=== PATIENT | male | born 1955 | race Caucasian/White ===

== ENCOUNTER 2016-11-09 17:24 | Inpatient (IN) | payer OTHER ==
--- NOTE | 2016-11-09 18:54 | PROVIDER DOCUMENTATION ---
HPI-Chest Pain - General Chief Complaint: Nausea/Vomiting Stated Complaint: CHEST PAIN,NAUSEA Time Seen by Provider: 11/09/16 18:40 Source: patient, family Allergies/Adverse Reactions: Patient Allergies Allergy/AdvReac Type Severity Reaction Status Date / Time Iodinated Contrast Media - Allergy Severe ANAPHYLAXIS Verified 11/09/16 18:07 Oral and iodine Allergy Severe ANAPHYLAXIS Verified 11/09/16 18:07 Home Medications: Home Medication List Medication Instructions Recorded Confirmed Last Taken Type Allopurinol 300 mg PO DAILY 11/07/14 11/09/16 05/28/16 11:00 History Buprenorphine HCl/Naloxone HCl 1 film SL TID 11/07/14 11/09/16 05/28/16 21:00 History [Suboxone 8 mg/2 mg Sl Film] Gabapentin [Neurontin] 800 mg PO TID 11/07/14 11/09/16 11/29/14 10:30 History 800 Tamsulosin HCl 1 cap PO QHS 11/07/14 11/09/16 05/28/16 09:00 History Trazodone HCl 150 mg PO QHS 11/07/14 11/09/16 11/28/14 20:00 History 100 Acetaminophen [Tylenol] 325 mg PO DAILY 05/29/16 11/09/16 Unknown History Bacitracin/Polymixin Oint 1 each TOP PRN PRN 05/29/16 11/09/16 Unknown History [Polysporin Ointment] Bacitracin/Polymyxin Oph Oint 1 each OPH PRN PRN 05/29/16 11/09/16 Unknown History [Polysporin Oph Ointment] Bisacodyl [Bisac-Evac] 1 each NC PRN PRN 05/29/16 11/09/16 Unknown History Buspirone [Buspar] 7.5 mg PO BID 05/29/16 11/09/16 05/28/16 08:00 History Cholecalciferol (Vit D3) [Vitamin 2,000 unit PO DAILY 05/29/16 11/09/16 Unknown History D] Clotrimazole 1% Cream [Lotrimin 1% 1 each TOP BID 05/29/16 11/09/16 Unknown History Cream] Cyanocobalamin (Vitamin B-12) 2,500 mcg SL DAILY 05/29/16 11/09/16 05/28/16 09: 00 History [Vitamin B12] Diclofenac 1% Gel [Voltaren 1% Gel] 1 each TOP PRN PRN 05/29/16 11/09/16 Unknown History Docusate Sodium [Sof-Lax] 100 mg PO DAILY 05/29/16 11/09/16 Unknown History Furosemide [Lasix] 40 mg PO DAILY 05/29/16 11/09/16 05/28/16 12:00 History Glipizide [Glipizide Xl] 10 mg PO DAILY 05/29/16 11/09/16 05/28/16 09:00 History Loratadine 10 mg PO DAILY 05/29/16 11/09/16 05/28/16 09:00 History Ondansetron HCl [Zofran] 4 mg PO DAILY 05/29/16 11/09/16 Unknown History Ondansetron [Zofran Odt] 8 mg PO Q8H PRN #10 tab.rapdis 05/29/16 11/09/16 Unknown Rx Polyethylene Glycol 3350 [Miralax] 17 gm PO DAILY 05/29/16 11/09/16 05/28/16 09: 00 History Propranolol L.a. [Inderal LA] 120 mg PO DAILY 05/29/16 11/09/16 05/28/16 09:00 History Saccharomyces Boulardii [Florastor] 250 mg PO DAILY 05/29/16 11/09/16 05/28/16 09:00 History Sennosides/Docusate Sodium [Senna 4 each PO BID 05/29/16 11/09/16 05/28/16 08: 00 History S Tablet] Sertraline HCl 100 mg PO DAILY 05/29/16 11/09/16 05/28/16 09:00 History Urea [Dia Lo 40] 1 each TOP BID 05/29/16 11/09/16 05/28/16 08:00 History Witch Marianna [Preparation H] 1 each NC PRN PRN 05/29/16 11/09/16 Unknown History Sitagliptin Phosphate [Januvia] 100 mg PO DAILY 11/09/16 11/09/16 Unknown History - History of Present Illness-CP Nature of Presenting Problem: Pt is a 61 yom who presents to ER via EMS from assisted living with CC of chest pain, possibly due to intermittent N/V x2 weeks. 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 Pt reports that today he has had intermittent N/V that has caused epigastric pain. Pt reports that his chest does not hurt anymore, but is still severely nauseas. Location: reports: epigastric Chest Pain Radiation: reports: no radiation Quality of Pain: reports: aching, cramping Severity in ED: severe Onset/Duration: other ("past several weeks") Timing: intermittent Associated Symptoms: reports: abdominal pain, fatigue, nausea, vomiting, weakness. denies: back pain, diaphoresis, dizziness, edema, fever/chills, headache, heartburn, rash, shortness of breath, swelling/lump in chest, syncope Review of Systems - Adult - REVIEW OF SYSTEMS - ADULT Constitutional: reports: fatique. denies: chills, fever, night sweats, weight gain, weight loss Eyes: reports: no symptoms reported Ears, Nose, Mouth & Throat: reports: no symptoms reported Cardiovascular: reports: chest pain. denies: edema, heart murmur, irregular heart rate, orthopnea, palpitations, poor circulation, PND, syncope Respiratory: denies: chronic cough, cough, dyspnea on exertion, excessive sputum production, hemoptysis, pleurisy, shortness of breath, wheezing Gastrointestinal: reports: abdominal pain, nausea, poor appetite, vomiting. denies: hematemesis, constipation, diarrhea, difficulty swallowing, frequent heartburn, rectal bleeding Genitourinary: reports: no symptoms reported Musculoskeletal: reports: no symptoms reported Integumentary: reports: skin sores/ulcer (Shingles). denies: hives, hair loss, itching, mole changes, nail changes, rash, skin thickening Neurological: reports: no symptoms reported Psychiatric: reports: no symptoms reported Endocrine: reports: no symptoms reported Hematologic/Lymphatic: reports: no symptoms reported Allergic/Immunologic: reports: no symptoms reported All Other Systems: Reviewed and Negative Past History - Adult - PAST MEDICAL HISTORY-ADULT Review of Records: reports: Nursing Assessment Review, Medications Reviewed Cardiovascular: reports: HTN, hyperlipidemia Musculoskeletal: reports: chronic pain Endocrine/Immune: reports: Diabetes - PRIOR SURGERIES/PROCEDURES Surgical/Procedure History: reports: cholecystectomy - IMMUNIZATION STATUS Childhood Immunizations: See Nurse Assessment Flu Vaccine: See Nurse Assessment Physical Exam-General - PHYSICAL EXAM-ADULT Initial Vital Signs Reviewed: Yes - CONSTITUTIONAL General Appearance: appears well, alert, severe distress, obese, slow to respond . negative: no apparent distress, mild distress, moderate distress, cachetic, thin, anxious, lethargic, obtunded, combative - NECK Neck: non-tender, full range of motion, supple. negative: C-spine tenderness, limited range of motion, lymphadenopathy - RESPIRATORY Respiratory: chest non-tender, lungs clear, normal breath sounds. negative: respiratory distress, decreased breath sounds, accessory muscle use, wheezing - CARDIOVASCULAR Cardiovascular: normal peripheral pulses, regular rate, rhythm. negative: bradycardia, tachycardia - GASTROINTESTINAL (ABDOMEN) Abdominal Exam: normal bowel sounds, soft, tenderness (bilateral upper quadrant) . negative: non tender, abnormal bowel sounds, distended, rebound, mass - LYMPHATIC Lymphatic: no adenopathy. negative: axilla node tender, cervical node tenderness - NEUROLOGIC Neurologic: grossly normal, focal weakness (total blindness from prior incident) , sensory deficit (bilateral lower extremities, not new onset). negative: no motor/sensory deficits, facial droop, motor weakness - PSYCHIATRIC Psych/Mental Status: normal thought content, normal thought process, oriented x 3, anxious, disheveled, tearful. negative: normal mood/affect Progress - PLAN OF CARE/RESULTS Progress/Plan/Lab Results: POC: IV fluids/labs/X-ray 1855: Dr. Deandre garcia Hospitalist Vital Signs - 24 hr 11/09/16 17:33 Temperature 98.5 F Pulse Rate 78 Respiratory 18 Rate Blood Pressure 178/75 O2 Sat by Pulse 100 Oximetry Orders Category Date Time Status Cardiac Monitoring DIRECTED Care 11/09/16 18:57 Active Saline Loc NOW Care 11/09/16 18:57 Active CHEST-PORTABLE [RAD] Stat Exams 11/09/16 18:[address] THORAX W/O CONTRAST [CT] Stat Exams 11/09/16 21:27 Ordered CBC WITH ELECTRONIC DIFF [HEME] Stat Lab 11/09/16 18:45 Completed CK PROFILE [SP CHEM] Stat Lab 11/09/16 18:45 Completed COMPREHENSIVE METABOLIC PANEL [CHEM] Stat Lab 11/09/16 18:45 Completed D-DIMER [CHEM] Stat Lab 11/09/16 18:45 Completed MAGNESIUM [CHEM] Stat Lab 11/09/16 18:45 Completed PRO B-NATRIURETIC PEPTIDE Stat Lab 11/09/16 18:45 Completed PROTIME WITH INR [COAG] Stat Lab 11/09/16 18:45 Completed PTT [COAG] Stat Lab 11/09/16 18:45 Completed TROPONIN T Stat Lab 11/09/16 18:45 Completed UA [URINALYSIS] [URINALYSIS] Stat Lab 11/09/16 18:03 Completed 0.9% Sodium Chloride Inj [Ns] 1,000 ml Med 11/09/16 20:00 Active IV 500 mls/hr Aspirin Med 11/09/16 18:57 Discontinued 325 mg PO STAT STA Insulin Human Regular [Humulin R] Med 11/09/16 21:24 Discontinued 5 unit SUBQ NOW ONE Magnesium Sulfate 2 gm/S.w.i. [Magnesium Sulfate 2 gm/S Med 11/09/16 21:09 Active .w.i] 50 ml IV NOW Nitroglycerin Sl [Nitroglycerin] Med 11/09/16 18:57 Active 0.4 mg SL Q5M PRN PRN Ondansetron [Zofran] Med 11/09/16 20:17 Discontinued 4 mg .ROUTE .STK-MED ONE Ondansetron [Zofran] Med 11/09/16 19:48 Discontinued 4 mg IV NOW ONE Potassium Chloride 20 Meq/Swi 100 ml Med 11/09/16 22:00 Active IV Q2H EKG [EKG] Stat Ther 11/09/16 17:32 Ordered EKG [EKG] Stat Ther 11/09/16 18:57 Ordered Laboratory Tests 11/09/16 11/09/16 11/09/16 18:03 18:45 18:45 WBC 11.24 H RBC 4.58 L Hgb 13.9 L Hct 43.0 MCV 93.9 MCH 30.3 MCHC 32.3 L RDW Std Deviation 13.6 Plt Count 290 MPV 9.6 Immature Gran % (Auto) 0.2 Neut % (Auto) 86.7 H Lymph % (Auto) 7.6 L [place] % (Auto) 4.5 Eos % (Auto) 0.8 Baso % (Auto) 0.2 Immature Gran # (Auto) 0.02 Neut # (Auto) 9.75 H Lymph # (Auto) 0.85 L [place] # (Auto) 0.51 Eos # (Auto) 0.09 Baso # (Auto) 0.02 Segmented Neutrophils 84 H Band Neutrophils 2 H Lymphocytes 2 L Monocytes 6 Atypical Lymphocytes 6.0 Anisocytosis OCCASIONAL Macrocytosis OCCASIONAL Stomatocytes OCCASIONAL PT INR PTT (Actin FS) D-Dimer Sodium 133 L Potassium 3.7 Chloride 90 L Carbon Dioxide 32 Anion Gap 11 BUN 7 L Creatinine 1.0 Estimated GFR/1.73 m2 > 60 BUN/Creatinine Ratio 7 Glucose 252 H Calculated Osmolality 273 Calcium 9.1 Magnesium 1.4 L Total Bilirubin 1.29 H AST 332 H ALT 103 H Alkaline Phosphatase 135 H Creatine Kinase 170 Troponin T [id number] Pept Total Protein 8.1 Albumin 3.7 Globulin 4.4 Albumin/Globulin Ratio 0.8 Urine Source VOIDED Urine Color YELLOW Urine Turbidity CLEAR Urine pH 6.5 Ur Specific [place] 1.013 Urine Protein TRACE A Ur Glucose (Stick) 500 A Ur Ketones (Stick) NEGATIVE Urine Blood NEGATIVE Urine Nitrite NEGATIVE Urine Bilirubin NEGATIVE Urobilinogen Dipstick NORMAL Urine Leukocytes NEGATIVE Urine WBC (Auto) <10 Urine RBC (Auto) <10 U Epithel Cells (Auto) <10 Urine Bacteria (Auto) NEGATIVE 11/09/16 11/09/16 11/09/16 18:45 18:45 18:45 WBC RBC Hgb Hct MCV MCH MCHC RDW Std Deviation Plt Count MPV Immature Gran % (Auto) Neut % (Auto) Lymph % (Auto) [place] % (Auto) Eos % (Auto) Baso % (Auto) Immature Gran # (Auto) Neut # (Auto) Lymph # (Auto) [place] # (Auto) Eos # (Auto) Baso # (Auto) Segmented Neutrophils Band Neutrophils Lymphocytes Monocytes Atypical Lymphocytes Anisocytosis Macrocytosis Stomatocytes PT 10.4 INR 0.98 PTT (Actin FS) 26.7 D-Dimer 0.64 H Sodium Potassium Chloride Carbon Dioxide Anion Gap BUN Creatinine Estimated GFR/1.73 m2 BUN/Creatinine Ratio Glucose Calculated Osmolality Calcium Magnesium Total Bilirubin AST ALT Alkaline Phosphatase Creatine Kinase Troponin T [id number] Pept 349 H Total Protein Albumin Globulin Albumin/Globulin Ratio Urine Source Urine Color Urine Turbidity Urine pH Ur Specific [place] Urine Protein Ur Glucose (Stick) Ur Ketones (Stick) Urine Blood Urine Nitrite Urine Bilirubin Urobilinogen Dipstick Urine Leukocytes Urine WBC (Auto) Urine RBC (Auto) U Epithel Cells (Auto) Urine Bacteria (Auto) 11/09/16 18:45 WBC RBC Hgb Hct MCV MCH MCHC RDW Std Deviation Plt Count MPV Immature Gran % (Auto) Neut % (Auto) Lymph % (Auto) [place] % (Auto) Eos % (Auto) Baso % (Auto) Immature Gran # (Auto) Neut # (Auto) Lymph # (Auto) [place] # (Auto) Eos # (Auto) Baso # (Auto) Segmented Neutrophils Band Neutrophils Lymphocytes Monocytes Atypical Lymphocytes Anisocytosis Macrocytosis Stomatocytes PT INR PTT (Actin FS) D-Dimer Sodium Potassium Chloride Carbon Dioxide Anion Gap BUN Creatinine Estimated GFR/1.73 m2 BUN/Creatinine Ratio Glucose Calculated Osmolality Calcium Magnesium Total Bilirubin AST ALT Alkaline Phosphatase Creatine Kinase Troponin T < 0.010 Esr-[id number]-Vbqfcffeady Pept Total Protein Albumin Globulin Albumin/Globulin Ratio Urine Source Urine Color Urine Turbidity Urine pH Ur Specific [place] Urine Protein Ur Glucose (Stick) Ur Ketones (Stick) Urine Blood Urine Nitrite Urine Bilirubin Urobilinogen Dipstick Urine Leukocytes Urine WBC (Auto) Urine RBC (Auto) U Epithel Cells (Auto) Urine Bacteria (Auto) - REASSESSMENT Reassessment #1 Time Reassessed: 20:47 Status: improving (Pt reports that he is feeling better and has stopped vomiting ; Pt is able to drink water) Reassessment #2 Time Reassessed: 21:45 Status: improving (Pt reports that he is feeling better, not having any more chest pain, and is not feeling nauseas anymore. Dr. Carrera discussed results of pt's lab with family and decision to have pt admitted. Family verbaly acknowledged and agreed.) - EKG 1 Time of EKG reading by physician:: 17:29 EKG Read and Signed by:: Salazar Carrera EKG Interpretation (*Must complete 3 of following elements*): Normal Rate: 78 Rhythm: Normal sinus rhythm 2 Time of EKG reading by physician:: 02:01 EKG Read and Signed by:: Salazar Carrera EKG Interpretation (*Must complete 3 of following elements*): Normal Rate: 71 Rhythm: NSR - XRAY 1 XRAY: Bilateral XRAY Study: Chest Impression: See EMR Report (Cardiomegaly; Pulmonary edema; widened mediastinum;) Comparison with other Films: changes noted (Changed from 11/29/2014) XRAY Interpretation: See report - CT/MRI 1 CT Study: Thorax Impression: See EMR Report (No effusions; Fat in the mediastinum; No pneumonia; Prior granulomatous infection) CT Results: See report Departure - Departure Time of Disposition Order: 19:09 Disposition: ADMITTED INPATIENT Referrals: Raina Dill [Primary Care Provider] - Attestation - Scribe Verification/Attestation Scribe:: Hamzah Hernandez Acting as Scribe for:: Salazar Carrera Scribe documention review:: This chart was documented by a scribe and accurately reflects the service the provider performed and the decisions made by the provider.
[2016-11-09] MEDS ORDERED: ASPIRIN PO STA (18:57)
[2016-11-09] MEDS ORDERED: NITROGLYCERIN SL PRN (18:57)
[2016-11-09 19:36] LABS: INR 0.98; PROTIME 10.4 Seconds (9.2-11.7); PTT 26.7 Seconds (22.0-36.0)
[2016-11-09 19:43] LABS: AGAP 11; ALBUMIN 3.7 g/dL (3.5-5.0); ALKALINE PHOSPHATASE 135 U/L (32-122); BUN 7 mg/dL (8-22); CALCIUM 9.1 mg/dL (8.8-10.2); CHLORIDE 90 mmol/L (98-107); CK PROFILE 170 U/L (24-204); COSMO 273; GOT 332 U/L (10-34); GPT 103 U/L (10-44); MAGNESIUM 1.4 mg/dL (1.5-2.7); POTASSIUM 3.7 mmol/L (3.5-5.1); SODIUM 133 mmol/L (136-145); TCO2 32 mmol/L (25-35); TOTAL BILIRUBIN 1.29 mg/dL (0.20-1.00); TOTAL PROTEIN 8.1 g/dL (6.3-8.3)
[2016-11-09] MEDS ORDERED: ZOFRAN IV ONE (19:48)
[2016-11-09 20:01] LABS: BASO% 0.2 % (0.0-0.8); EOS# 0.09 X1000 (0.0-0.7); EOS% 0.8 % (0.0-10.0); HEMOGLOBIN 13.9 g/dL (14.0-18.0); IMM GRAN# 0.02 X1000 (0.0-0.04); IMM GRAN% 0.2 % (0.0-0.5); LYMPH# 0.85 X1000 (1.2-3.4); LYMPH% 7.6 % (20.5-51.1); MANUAL DIFF NEEDED? YES; MCH 30.3 PG (27-31); MCHC 32.3 g/dL (33-37); MCV 93.9 FL (81-99); MONO# 0.51 X1000 (0.11-0.59); MONO% 4.5 % (1.7-9.3); MPV 9.6 FL (7.4-10.4); NEUT% 86.7 % (42.2-75.2); PLT 290 X1000 (130-400); RBC 4.58 XMIL (4.7-6.1)
[2016-11-09] MEDS ORDERED: ZOFRAN ONE (20:17)
[2016-11-09] MEDS: NS 1,000 ML IV SCH ×2 (20:30→23:05)
[2016-11-09] MEDS ORDERED: MAGNESIUM SULFATE 2 GM/S.W.I. 50 ML IV ONE (21:09)
[2016-11-09 21:16] LABS: BANDS 2 % (0-1); LYMPHS 2 % (21-51); MONO 6 % (1-9)
[2016-11-09 21:18] LABS: STOMATOCYTES OCCASIONAL
[2016-11-09] MEDS ORDERED: HUMULIN R SUBQ ONE (21:24)
[2016-11-09 21:29] LABS: URINE MICRO REVIEW NEEDED? NO; URINE SOURCE VOIDED
[2016-11-09 21:34] LABS: BILIRUBIN URINE NEGATIVE (NEGATIVE); BLOOD URINE NEGATIVE (NEGATIVE); COLOR YELLOW; GLUCOSE URINE 500 mg/dL (NEGATIVE); LEUKOCYTES URINE NEGATIVE (NEGATIVE); NITRITE URINE NEGATIVE (NEGATIVE); PH URINE 6.5; PROTEIN URINE TRACE mg/dL (NEGATIVE); SP GRAVITY URINE 1.013; TURBIDITY URINE CLEAR (CLEAR); UR EPITHELIAL CELLS <10 /HPF (<10); URINE BACTERIA NEGATIVE /HPF; URINE RBC <10 /HPF (<10); URINE WBC <10 /HPF (<10); UROBILINOGEN URINE NORMAL (NORMAL)
[2016-11-09] MEDS ORDERED: ZOSYN 3.375 GM/NS 50 ML IV ONE (21:49)
[2016-11-09] MEDS ORDERED: TYLENOL PO ONE (23:12)
[2016-11-09] MEDS ORDERED: TYLENOL ONE (23:15)
--- NOTE | 2016-11-09 23:23 | Diag Imaging Result Document ---
PROCEDURE NAME: CT THORAX W/O CONTRAST - 11/09/2016 FINDINGS: No pleural effusions. No cardiomegaly. No thoracic aortic aneurysm. There are calcified mediastinal and right hilar lymph nodes and there are several scattered calcified granuloma. No consolidation. No bronchiectasis. No lung mass. No pneumothoraces. Limited images through the upper abdomen reveal prominent fatty infiltration of the liver and a cholecystectomy. IMPRESSION: 1. There is evidence of a prior granulomatous infection, but no acute pneumonia. 2. Fat in the mediastinum. 3. Cholecystectomy and fatty infiltration of the liver. A preliminary report was given at 10:28 p.m.
[2016-11-09] MEDS: POTASSIUM CHLORIDE 20 MEQ/SWI 100 ML IV SCH (23:34)
[2016-11-09 23:40] LABS: UR AMPHETAMINES QUAL NONE DETECTED (NONE DETECT); UR BARBITUATES QUAL NONE DETECTED (NONE DETECT); UR BENZODIAZEPIN QUAL NONE DETECTED (NONE DETECT); UR CANNABINOIDS QUAL NONE DETECTED (NONE DETECT); UR COCAINE QUAL NONE DETECTED (NONE DETECT); UR METHADONE QUAL NONE DETECTED (NONE DETECT); UR OPIATES QUAL NONE DETECTED (NONE DETECT); UR OXYCODONE QUAL NONE DETECTED (NONE DETECT); UR PCP QUAL NONE DETECTED (NONE DETECT)
[2016-11-10] MEDS ORDERED: ZOFRAN IV ONE (00:02)
[2016-11-10] MEDS ORDERED: DULCOLAX PR PRN (01:04)
[2016-11-10] MEDS ORDERED: [UNRECOGNIZED DRUG - OTHER] OPH PRN (01:04)
[2016-11-10] MEDS ORDERED: TUCKS PADS PR PRN (01:04)
[2016-11-10] MEDS ORDERED: COMPAZINE IV ONE (01:09)
[2016-11-10] MEDS: NS 1,000 ML IV SCH ×2 (01:45→03:55)
[2016-11-10] MEDS: CLINDAMYCIN 600 MG/NS 50 ML IV SCH ×2 (01:45→12:12)
[2016-11-10] MEDS: POTASSIUM CHLORIDE 20 MEQ/SWI 100 ML IV SCH (01:45)
[2016-11-10] MEDS ORDERED: TORADOL IV ONE (04:26)
[2016-11-10] MEDS ORDERED: XYLOCAINE 2% JELLY UROJECT TOP ONE (04:59)
[2016-11-10] MEDS ORDERED: ZOFRAN IV PRN (06:33)
[2016-11-10] MEDS ORDERED: SODIUM CHLORIDE 0.9% INJ PRN (06:33)
--- NOTE | 2016-11-10 06:39 | HISTORY AND PHYSICAL ---
PRIMARY CARE PROVIDER: Dr. Dill at [facility] in [place]. CHIEF COMPLAINT: Nausea, vomiting and chest pain. HISTORY OF PRESENT ILLNESS: A 61-year-old male with a past medical history of hypertension, hyperlipidemia, diabetes mellitus type 2 and chronic pain, who is completely blind, presents to the emergency room with his sister from [facility] in [place]. He has reportedly had nausea and vomiting for 6 months but tonight began having a complaint of chest pain. He also has a recent history of shingles and is treated with Suboxone for his chronic pain. In the ER, his complaint of chest pain was evaluated and found to be more epigastric in nature. During my interview, the patient and sister also made mention of recent diagnosis of gastroparesis. Again, this is per the patient and sister at the bedside. Also reportedly had an abscess on his coccyx that was I D. Patient refused during the assessment to roll to his side related to nausea even after nausea medicine so it could be evaluated. The ER provider was also unable to evaluate this. Per description from the sister, it is reddened around the area and they have apparently been treating it at [facility]. The patient was noted to have a fever in the emergency room. He was initially given Zosyn in the ER. Laboratory data was grossly normal. He did have a mildly elevated D-dimer and a CT of the chest was obtained. However, the patient lists an allergy to IV and oral contrast. The CT showed evidence of prior granulomatous infection but no acute pneumonia, fat in the mediastinum and fatty infiltration of the liver. His ALT and AST were elevated at 103 and 332 respectively with a total bilirubin of 1.29, but the CT scan showing FERRIS would account for this. At any rate, the patient will be admitted to the medical floor for further evaluation and treatment. PAST MEDICAL HISTORY: See HPI. PREVIOUS SURGICAL HISTORY: 1. EGD and colonoscopy. 2. Cholecystectomy. 3. TURP. SOCIAL HISTORY: Denies a history of alcohol, tobacco or illicit drug use or abuse. He did have a chronic history of oxycodone use related to chronic pain. He has been subsequently changed to Suboxone related to his wish to get off of oxycodone. FAMILY HISTORY: Positive for diabetes and hypertension. ALLERGIES: IV and oral contrast and iodine causing anaphylaxis. HOME MEDICATIONS: 1. Trazodone 150 mg p.o. at bedtime. 2. Flomax 0.4 mg p.o. at bedtime. 3. Suboxone 8 mg/2 mg 1 film sublingual t.i.d. 4. Neurontin 800 mg p.o. t.i.d. 5. Allopurinol 300 mg p.o. daily. 6. Dulcolax suppository 1 p.o. p.r.n. 7. Preparation-H 1 AR p.r.n. 8. Polysporin ointment ophthalmic p.r.n. 9. Sof-Lax 100 mg p.o. daily. 10. Tylenol 325 p.o. daily. 11. Zofran 4 mg p.o. daily. 12. Senokot S tablet 4 each p.o. b.i.d. 13. BuSpar 7.5 mg p.o. b.i.d. 14. Lasix 40 mg p.o. daily. 15. Vitamin D 2000 units p.o. daily. 16. Inderal LA 120 mg p.o. daily. 17. MiraLAX 17 g p.o. daily. 18. Loratadine 10 mg p.o. daily. 19. Florastor 250 mg p.o. daily. 20. Voltaren 1% gel 1 topically p.r.n. 21. Zofran ODT 8 mg q.8 p.r.n. 22. Lotrimin 1% cream topically b.i.d. 23. Urea 1 topically b.i.d. lotion. 24. Vitamin B12 2500 mg sublingual daily. 25. Glipizide 10 mg p.o. daily. 26. Januvia 100 mg p.o. daily. REVIEW OF SYSTEMS: Fourteen point review of systems conducted with the patient. He has complaint of nausea and vomiting, abdominal pain, chest pain mostly in the epigastric region. Did not radiate into his neck, back, jaw, shoulder or arms. Denied previous fever, chills, shortness of breath. Denied dysuria and diarrhea. Other pertinent positives for the admission are listed above in the HPI. PHYSICAL EXAMINATION: VITAL SIGNS: Temp 102 degrees, pulse 79, respirations 22, blood pressure 182/97, oxygen saturation 95% to 100 on 2 L nasal cannula. GENERAL: Obese 61-year-old male lying in the ER stretcher. He is totally blind. Answers all questions appropriately. No acute distress. HEENT: Head is atraumatic, normocephalic. Pupils are nonreactive related to his blindness. Oral mucosa is moist. NECK: Supple. No JVD. No thyromegaly. LUNGS: Clear to auscultation bilaterally. No rhonchi, wheezes or rales. Symmetrical rise and fall with respirations. CARDIOVASCULAR: S1, S2 appreciated. No murmurs, gallops, rubs. Regular rhythm. ABDOMEN: Soft, mildly distended, diffusely tender. Bowel sounds are hyperactive all 4 quadrants. EXTREMITIES: 2+ right lower extremity edema mid calf to foot, 1+ pitting edema left lower extremity mid calf to foot, 2+ pedal pulses. NEUROLOGICAL: Alert and oriented x4. Other than blindness which was noted above, cranial nerves were grossly intact. DIAGNOSTIC DATA: CT of the thorax without contrast: No infiltrate, fatty infiltration of the liver noted, fat noted in the mediastinum. LABORATORY DATA: WBC 11.24, hemoglobin 13.9, hematocrit 43, platelet count 29,000, 2 band neutrophils. Coagulations within normal limits. D-dimer 0.64. Sodium 133, potassium 3.7, chloride 90, carbon dioxide 32, BUN 7, creatinine 1, glucose 252, magnesium 1.4, total bilirubin 1.29, AST 332, ALT 103. CK 170, troponin less than 0.010. Urine unremarkable. Toxicology screen negative. ASSESSMENT AND PLAN: 1. Intractable nausea and vomiting, possibly related to gastroparesis. The family at bedside states that the patient has a diagnosis of gastroparesis in 2016. He had a gastric emptying study which showed normal gastric emptying times. We will consult Dr. Paul for her help in this matter. We will give Zofran and Phenergan p.r.n. as needed. 2. Nonalcoholic steatohepatitis. We will order a CT of the abdomen and pelvis without contrast as the patient is allergic to it related to nausea, vomiting and elevated liver enzymes. The CT of the thorax did show fatty infiltrations of the liver. We will also order an ammonia level. As noted above, we will consult Dr. Paul, GI specialist, for help with these matters. 3. Suspected bacterial infection secondary to recent abscess I D. The patient will not rollover related to his nausea and vomiting for me to visualize the area on his back. It was described to me per the sister as being reddened around the area. He is febrile. Blood cultures have been drawn. We will order clindamycin IV while cultures are pending. When patient's nausea and vomiting have been controlled, we will evaluate the area. 4. Hyperlipidemia, aware. 5. Hypertension. Continue home medications. Add hydralazine 10 mg IV q.4 hours systolic blood pressure greater than 160. 6. Diabetes mellitus type 2. Sliding scale insulin with fingerstick blood sugar. 7. Chronic pain. Continue patient's Suboxone and trazodone for sleep. 8. Blindness, aware. Further recommendations per patient's clinical course. Dictated by BERTIN Barber for Chalo Mejía MD
--- NOTE | 2016-11-10 07:19 | Diag Imaging Result Document ---
PROCEDURE NAME: CHEST-PORTABLE - 11/09/2016 PORTABLE CHEST: COMPARISON: Compared to 11/29/2013. FINDINGS: The lungs are well expanded. The heart is prominent. The vessels are minimally distended. No consolidation. No pleural effusions identified. IMPRESSION: Cardiomegaly with minimal pulmonary edema.
[2016-11-10] MEDS: SUBOXONE 8 MG/2 MG SL SCH ×3 (07:51→20:47)
[2016-11-10] MEDS: HUMALOG SUBQ SCH ×4 (07:53→19:04)
[2016-11-10] MEDS: PRILOSEC PO SCH (07:53)
[2016-11-10] MEDS: LOVENOX SUBQ SCH (07:54)
--- NOTE | 2016-11-10 08:00 | Diag Imaging Result Document ---
PROCEDURE NAME: ABDOMEN/PELVIS W/O CONTRAST - 11/10/2016 CT ABDOMEN AND PELVIS WITHOUT ORAL OR INTRAVENOUS CONTRAST: TECHNIQUE: Dose-reduction protocol. COMPARISON: Compared to 10/04/2014. FINDINGS: The heart is borderline mildly prominent. There are calcified granuloma in the right base and there is a calcified right hilar lymph node. No effusions. The gallbladder has been removed. Prominent fatty infiltration of the liver. There are multiple scattered splenic granuloma. The spleen is not enlarged. Normal adrenal glands. There is fatty infiltration of the pancreas. Perinephric inflammation similar to the prior study. No renal stones. No hydronephrosis. Normal aorta. Slight prominence of several paraaortic lymph nodes. Trace fluid in the right paracolic gutter. No bowel obstruction. No inflammation about the cecum. No abscess. No free air. A Briones catheter has the urinary bladder decompressed. IMPRESSION: 1. Cholecystectomy. 2. Fatty infiltration of the liver. 3. No renal stones or hydronephrosis. 4. Trace fluid in the right paracolic gutter. 5. Minimally prominent paraaortic lymph nodes. 6. No bowel obstruction. 7. No abscess.
[2016-11-10] MEDS: JANUVIA PO SCH (11:16)
[2016-11-10] MEDS: VITAMIN B-12 SL SCH (11:17)
[2016-11-10] MEDS: ZOLOFT PO SCH (11:17)
[2016-11-10] MEDS: FLORASTOR PO SCH (11:18)
[2016-11-10] MEDS: LASIX PO SCH (11:19)
[2016-11-10] MEDS: COLACE PO SCH (11:19)
[2016-11-10] MEDS: NEURONTIN PO SCH ×3 (11:19→20:47)
[2016-11-10] MEDS: INDERAL LA PO SCH (11:20)
[2016-11-10] MEDS: BUSPAR PO SCH ×2 (11:20→20:47)
[2016-11-10] MEDS: VITAMIN D PO SCH (11:21)
[2016-11-10] MEDS: PATIENT'S OWN MED TOP SCH ×2 (11:22→21:06)
[2016-11-10] MEDS: MIRALAX PO SCH (11:23)
[2016-11-10] MEDS: LOTRIMIN 1% CREAM TOP SCH ×2 (11:27→20:48)
[2016-11-10] MEDS: APRESOLINE IV PRN ×2 (12:13→16:57)
[2016-11-10] MEDS: PHENERGAN IV PRN (12:13)
--- NOTE | 2016-11-10 15:07 | PROGRESS NOTE ---
DATE: 11/10/2016 SUBJECTIVE: The patient is complaining of having mild chest pain and some nausea but no vomiting. OBJECTIVE: Vital Signs: Blood pressure 174/90, pulse of 71, respiration 98.8, saturation of 93%. Weight 254 pounds. General Appearance: Obese, white male, legally blind. Neck: Supple. No JVD. No bruit. HEENT: Has a few healing lesion on his face. Was diagnosed with shingles at the assisted living facility. Cardiovascular: S1, S2. Normal rate and rhythm. No murmur, rubs, or gallops. Pulmonary: Clear to auscultation bilaterally. GI: Soft. Mild tenderness around the epigastric region. Extremities: Lower extremities, no clubbing or cyanosis. There is just 1+ pitting edema. Neurologic: Afocal. Psychiatric: Euthymic mood. LABORATORY: His admission labs were reviewed. ASSESSMENT AND PLAN: This is a 61-year-old, obese white male admitted to the hospital for nausea, vomiting, and chest pain. 1. Nausea and vomiting. The patient was diagnosed with gastroparesis in the past. The patient does have bowel movements. We are trying the patient on Reglan. The patient has a gastric emptying study tomorrow that was ordered by the admitting team. Will put him on diabetic diet for now and then we will make him NPO after midnight for the gastric emptying study tomorrow. 2. Chest pain. Three set of cardiac enzymes were negative. Chest pain is reproducible. Echocardiogram is pending. CAT scan of the chest was negative for evidence of pneumonia. 3. Diabetes. Will hold his home medication except for his Januvia and we will continue sliding scale insulin. 4. Sacral decubitus. We will consult wound care. We will keep the patient on clindamycin for now. 5. Benign prostatic hypertrophy. Will continue Flomax. 6. Depression. Will continue Zoloft. 7. Morbid obesity. Education provided.
[2016-11-10] MEDS: ZOSYN 3.375 GM/NS 50 ML IV SCH ×2 (16:01→20:47)
[2016-11-10] MEDS: REGLAN IV SCH (16:02)
--- NOTE | 2016-11-10 16:45 | CONSULTATION ---
DATE OF CONSULTATION: 11/10/2016 REASON FOR CONSULTATION: Nausea, vomiting, chest pain/epigastric pain. HISTORY OF PRESENT ILLNESS: This is a 61-year-old male patient who reported to the emergency room with chest pain. On evaluation it was found that it was more described as epigastric pain. Also complained of episodes of nausea and vomiting. Most information is obtained from the family due to the patient just receiving some medication for and being drowsy. I have talked with his brother, [id number], and sister. They reported that he has had problems off and on for over 6 months with nausea and vomiting. They brought him into the emergency room because he was complaining of chest pain. He has seen Dr. Mantilla recently, last week. He has been diagnosed with gastroparesis in the past per their report. In past records it is noted that he had a gastric emptying study in February of 2016 that was normal. He had a GI and barium swallow in April of 2016 that showed a small mid/distal esophageal diverticulum noted in Dr. Mantilla's report in the chart. When he was seen in 2014 he had an EGD and colonoscopy. EGD had shown candidal esophagitis, gastritis, and normal colonoscopy. The brother states that Dr. Mantilla had placed him back on Diflucan for possible lawanda at this time. He also states that he was diagnosed with possible shingles. He has a small rash to his forehead. He was given medications for that. He also had a cyst drained from the perineal area about 1 week ago. Family reports he has problems with irregular bowel habits, constipation versus diarrhea. Denied any blood in the stool or black stools. Per patient, he states his nausea and vomiting have improved with medications. He reports mild pain in the mid abdomen. PAST MEDICAL HISTORY: Hypertension, hypercholesterolemia, diabetes type 2, chronic pain. He is blind. PAST SURGICAL HISTORY: Cholecystectomy, TURP, toenail extraction and debridement of the right toe in 2014. He had an EGD and colonoscopy by Dr. Mantilla in 2014 that showed lawanda esophagitis, gastritis, and normal colonoscopy. ALLERGIES: To IV contrast causing anaphylaxis and iodine causing anaphylaxis. HOME MEDICATIONS: Januvia 100 mg daily, Voltaren gel as needed, vitamin B12 daily, Lotrimin cream twice a day, vitamin D 2000 units daily, BuSpar 7.5 mg twice a day, Suboxone film sublingual 3 times a day, bisacodyl 1 each as needed, Polysporin ointment as needed, allopurinol 300 mg daily, Tylenol 325 mg daily, loratadine 10 mg daily, glipizide XL 10 mg daily, Neurontin 800 mg 3 times a day, Lasix 40 mg daily, docusate sodium stool softener 100 mg daily, Zofran 8 mg as needed, Zofran 4 mg daily, MiraLAX 17 g daily, senna S twice daily, Florastor probiotic 250 mg daily, propranolol 120 mg daily, tamsulosin 1 daily at night, sertraline 100 mg daily, urea 1 twice a day, trazodone 150 mg at night, Preparation H as needed. SOCIAL HISTORY: Lives at [facility] [place]. Denies tobacco or alcohol use. FAMILY HISTORY: For diabetes and hypertension. REVIEW OF SYSTEMS: Per HPI. PHYSICAL EXAMINATION: Vital Signs: Temperature 98.8 degrees, pulse 71, respirations 16, blood pressure 174/90. Generally: The patient is resting but arouses easily. He is in no acute distress. HEENT: Legally blind. Respiratory: Lung sounds essentially clear bilaterally. No rhonchi or wheezes heard. Cardiovascular: S1, S2 regular rhythm. Abdomen: Obese. Mildly tender. Positive bowel sounds. Extremities: With some lower extremity edema noted. Neurologic: Cranial nerves 2 through 12 grossly intact. Patient is legally blind. DIAGNOSTIC RESULTS: Laboratory: Hematology: White count 11.24, hemoglobin 13.9, hematocrit 43.0, platelets 290,000. Coagulation: Protime 10.4, INR 0.98, PTT 26.7. D-dimer 0.64. Chemistry: Sodium 133, potassium 3.7, chloride 90, CO2 32, BUN 7, creatinine 1.0, glucose 252, calcium 9.1, magnesium 1.4, total bilirubin 1.29, AST 332, ALT 102, alkaline phosphatase 135, ammonia 54. Imaging: Abdominal and pelvis CT scan without contrast due to allergy shows cholecystectomy and fatty liver. No renal stones or hydronephrosis. Trace fluid in the right pericolic gutter. Minimal prominent para-aortic lymph nodes. No bowel obstruction. No abscess. CT scan of the chest showed evidence of prior granulomatous infection but no acute pneumonia. Fat in the mediastinum. History of cholecystectomy and noted fatty infiltration of the liver. Chest x-ray showed cardiomegaly with minimal pulmonary edema. ASSESSMENT: 1. Nausea and vomiting. 2. Abdominal pain. 3. History of nonalcoholic steatohepatitis (FERRIS). 4. Elevated white blood cell count with blood cultures showing gram-negative rods. He is on antibiotics. 5. History of perianal abscess with recent incision and drainage. 6. History of lawanda esophagitis/gastritis by EGD in 2014 with normal colonoscopy in 2014, done by Dr. Mantilla. PLAN: Continue supportive care. Continue to monitor and give symptomatic treatment for nausea and vomiting. Further treatment for infection. The patient has been seen by Dr. Mantilla recently, as recent as last week. The patient will be placed on his list for tomorrow to follow up and resume care. Further plans will be made today as needed. Diet, given diabetic diet, ordered by Dr. Drake Lemus, and placed NPO. Further plans will be made according to Dr. Mantilla once he sees tomorrow. Thank you for this consultation. Dictated by BERTIN Joseph for James Cummings MD
--- NOTE | 2016-11-10 17:13 | ECHO REPORT ---
ORDER DATE: 11/10/2016 INTERPRETING PHYSICIAN: Dr. Henriquez REQUESTING PHYSICIAN: CLINICAL INDICATIONS: This is a 61-year-old male with chest pain, lower extremity edema, obesity. M-MODE MEASUREMENTS: Right ventricle: 2.9 cm. Left ventricle end diastole: 5.5 cm. Left ventricle end systole: 3.6 cm. Posterior wall: 1.1 cm. Interventricular septum: 1.1 cm. Left atrium: 4.1 cm. Aortic root: 3.3 cm. SUMMARY OF 2-DIMENSIONAL IMAGIN. Left ventricular function is normal. Ejection fraction is 63%. The chamber is not dilated. No wall motion abnormality is noted. 2. Right ventricle appears to be mildly enlarged. 3. Aortic valve appears to be morphologically normal. Color flow mapping is unremarkable. 4. Mitral valve looks normal. Color flow mapping indicates mild degree of regurgitation. 5. Pulse wave Doppler of mitral inflow shows a pseudo normal pattern with a tall E wave and a short A wave. 6. Tissue Doppler of septal and lateral mitral annulus averages 7 cm. 7. The pulmonary venous flow shows predominance of the diastolic component with a short deceleration time of the diastolic component. That suggests elevation of the left atrial pressure. 8. Tricuspid valve looks grossly normal. 9. Inferior vena cava was not well visualized. 10.The pulmonary pressure could not be assessed in this case. 11.Pulmonic valve looks normal. Color flow mapping is unremarkable. 12.There is no pericardial effusion, mass or thrombus. CONCLUSIONS: 1. Normal left ventricular systolic function with ejection fraction of 63%. 2. Suspect elevation of left atrial pressure/diastolic dysfunction. 3. Unremarkable aortic, mitral, pulmonic and tricuspid valves. Clinical correlation is recommended.
[2016-11-10] MEDS: DESYREL PO SCH (20:47)
[2016-11-10] MEDS: FLOMAX PO SCH (20:47)
[2016-11-11] MEDS: HUMALOG SUBQ SCH ×5 (00:34→17:48)
[2016-11-11] MEDS: REGLAN IV SCH ×4 (00:34→17:43)
[2016-11-11] MEDS: ZOSYN 3.375 GM/NS 50 ML IV SCH ×4 (00:34→19:58)
[2016-11-11] MEDS ORDERED: TORADOL IV ONE (02:44)
--- NOTE | 2016-11-11 06:09 | EKG Report ---
Test Performed on : 11/10/2016 02:01:05 AM Test Reason : Chest Pain Blood Pressure : / mmHG Vent. Rate : 071 BPM Atrial Rate : 071 BPM P-R Int : 148 ms QRS Dur : 080 ms QT Int : 420 ms P-R-T Axes : 055 029 042 degrees QTc Int : 456 ms Normal sinus rhythm. Normal ECG When compared with ECG of 09-NOV-2016 17:29, (Unconfirmed) No significant change was found Unconfirmed Result
[2016-11-11] MEDS: LOVENOX SUBQ SCH (06:54)
[2016-11-11] MEDS: SUBOXONE 8 MG/2 MG SL SCH ×3 (06:54→21:31)
[2016-11-11] MEDS: PRILOSEC PO SCH (06:55)
[2016-11-11 07:38] LABS: BASO% 0.2 % (0.0-0.8); EOS# 0.13 X1000 (0.0-0.7); EOS% 1.1 % (0.0-10.0); HEMATOCRIT 36.5 % (42.0-52.0); HEMOGLOBIN 11.6 g/dL (14.0-18.0); IMM GRAN# 0.03 X1000 (0.0-0.04); IMM GRAN% 0.3 % (0.0-0.5); LYMPH# 0.68 X1000 (1.2-3.4); LYMPH% 5.7 % (20.5-51.1); MANUAL DIFF NEEDED? YES; MCH 29.7 PG (27-31); MCHC 31.8 g/dL (33-37); MCV 93.4 FL (81-99); MONO% 6.7 % (1.7-9.3); MPV 9.7 FL (7.4-10.4); PLT 252 X1000 (130-400); RBC 3.91 XMIL (4.7-6.1)
[2016-11-11 07:47] LABS: AGAP 13; ALKALINE PHOSPHATASE 125 U/L (32-122); BUN 11 mg/dL (8-22); CALCIUM 8.1 mg/dL (8.8-10.2); CHLORIDE 100 mmol/L (98-107); COSMO 280; GOT 135 U/L (10-34); GPT 102 U/L (10-44); MAGNESIUM 1.6 mg/dL (1.5-2.7); POTASSIUM 3.9 mmol/L (3.5-5.1); SODIUM 139 mmol/L (136-145); TCO2 26 mmol/L (25-35); TOTAL BILIRUBIN 2.61 mg/dL (0.20-1.00); TOTAL PROTEIN 6.9 g/dL (6.3-8.3)
[2016-11-11 08:10] LABS: LYMPHS 8 % (21-51); MONO 6 % (1-9)
--- NOTE | 2016-11-11 09:31 | EKG Report ---
Test Performed on : 11/09/2016 5:29:47 PM Test Reason : cp Blood Pressure : / mmHG Vent. Rate : 078 BPM Atrial Rate : 078 BPM P-R Int : 130 ms QRS Dur : 078 ms QT Int : 410 ms P-R-T Axes : 044 009 009 degrees QTc Int : 467 ms Normal sinus rhythm. Normal ECG When compared with ECG of 29-NOV-2014 16:06, ST now depressed in Anterior leads Unconfirmed Result
[2016-11-11] MEDS: LASIX PO SCH (11:48)
[2016-11-11] MEDS: BUSPAR PO SCH ×2 (11:48→21:31)
[2016-11-11] MEDS: COLACE PO SCH (11:48)
[2016-11-11] MEDS: VITAMIN B-12 SL SCH (11:48)
[2016-11-11] MEDS: NEURONTIN PO SCH ×3 (11:49→21:31)
[2016-11-11] MEDS: ZOLOFT PO SCH (11:49)
[2016-11-11] MEDS: VITAMIN D PO SCH (11:49)
[2016-11-11] MEDS: JANUVIA PO SCH (11:49)
[2016-11-11] MEDS: MIRALAX PO SCH (11:50)
[2016-11-11] MEDS: INDERAL LA PO SCH (11:50)
[2016-11-11] MEDS: FLORASTOR PO SCH (11:51)
[2016-11-11] MEDS: PATIENT'S OWN MED TOP SCH ×2 (11:52→21:34)
[2016-11-11] MEDS: ZYLOPRIM PO SCH (11:52)
[2016-11-11] MEDS ORDERED: PRINIVIL PO SCH (15:00)
--- NOTE | 2016-11-11 16:50 | PROGRESS NOTE ---
DATE: 11/11/2016 SUBJECTIVE: This patient states that he is feeling a little bit better. He is still complaining of mild nausea, but he is tolerating fluids, so I will keep this patient on drinking fluids. I will continue the antinausea medication. He is not complaining about pain at this moment. Gastroenterology department, Dr. Mantilla, evaluated this patient and they will ask for a gastric emptying study tomorrow. OBJECTIVE: Vital Signs: Temperature 99.2 degrees, pulse 80, respiratory rate 20, blood pressure 174/81, oxygen saturation 94% on room air. HEENT: Head normocephalic. No trauma. PERRLA. Neck: Supple. No JVD. No masses. Central trachea. Cardiovascular: RRR. No murmurs. Thorax: Clear to auscultation. No wheezing. No rales. Abdomen: Soft. Mild tenderness to palpation in the epigastric area. Mildly distended. Obese. Positive bowel sounds. Extremities: No edema. No clubbing. No cyanosis. Neurological: The patient is alert. He is blind. He is oriented x3. No focal neurological deficits. LABORATORY: WBC 11.9, hemoglobin 11.6, hematocrit 36.5, platelet 252,000. Sodium 139, potassium 3.9, chloride 100, bicarbonate 26, BUN 11, creatinine 1, glucose 153, calcium 8.1, total bilirubin 2.6, AST 135, ALT 102, alkaline phosphatase 125, albumin 3. ASSESSMENT AND PLAN: 1. Intractable nausea and vomiting. He had a gastric emptying study that showed normal gastric emptying time, but apparently this patient has been diagnosed with gastroparesis before. We will repeat the gastric emptying study again as per gastroenterology department, Dr. Mantilla. The nausea and vomiting is getting better. Actually he is tolerating fluids. 2. Nonalcoholic steatohepatitis. The liver function tests are elevated. We had a CT scan done that showed fatty infiltration of the liver but no abscesses or obstructions. 3. Suspected bacterial infection secondary to recent abscess. We have a positive culture result. That showed gram-negative rods, 1 out of 2 cultures. I will repeat the blood cultures. Probably this is related with contamination, but this patient is on antibiotics anyway. 4. Hyperlipidemia. Aware. 5. Hypertension. This patient's blood pressure has been high. For now he is getting furosemide 40 p.o. daily, hydralazine 10 mg IV q.4 hours p.r.n., propranolol HCL 120 mg p.o. daily. Because of his past medical history of diabetes and hypertension, I will start this patient on a low dose of JARRET inhibitors and I will monitor the kidney function. Right now the kidney function is normal. 6. Type 2 diabetes. I will continue with sliding scale insulin and pattern blood sugars. 7. Chronic pain. I will continue with this patient's Suboxone and trazodone for sleep. 8. Blindness. Aware.
[2016-11-11] MEDS: LOTRIMIN 1% CREAM TOP SCH (20:00)
[2016-11-11] MEDS: FLOMAX PO SCH (21:31)
[2016-11-11] MEDS: DESYREL PO SCH (21:32)
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
[2016-11-12] MEDS: LOTRIMIN 1% CREAM TOP SCH ×2 (01:12→15:20)
[2016-11-12] MEDS: HUMALOG SUBQ SCH ×3 (01:12→06:37)
[2016-11-12] MEDS: REGLAN IV SCH ×2 (01:12→06:28)
[2016-11-12] MEDS: ZOSYN 3.375 GM/NS 50 ML IV SCH ×3 (01:12→15:17)
[2016-11-12] MEDS: SUBOXONE 8 MG/2 MG SL SCH ×2 (06:28→15:18)
[2016-11-12] MEDS: LOVENOX SUBQ SCH (06:28)
[2016-11-12 06:33] LABS: MANUAL DIFF NEEDED? NO
[2016-11-12 06:37] LABS: BASO% 0.2 % (0.0-0.8); EOS# 0.05 X1000 (0.0-0.7); EOS% 0.5 % (0.0-10.0); HEMATOCRIT 33.7 % (42.0-52.0); HEMOGLOBIN 10.8 g/dL (14.0-18.0); IMM GRAN# 0.03 X1000 (0.0-0.04); IMM GRAN% 0.3 % (0.0-0.5); LYMPH# 0.98 X1000 (1.2-3.4); MCH 30.2 PG (27-31); MCV 94.1 FL (81-99); MONO% 9.1 % (1.7-9.3); MPV 9.7 FL (7.4-10.4); NEUT% 80.9 % (42.2-75.2); PLT 237 X1000 (130-400); RBC 3.58 XMIL (4.7-6.1)
[2016-11-12 06:59] LABS: AGAP 10; ALKALINE PHOSPHATASE 115 U/L (32-122); BUN 12 mg/dL (8-22); CALCIUM 7.9 mg/dL (8.8-10.2); CHLORIDE 96 mmol/L (98-107); COSMO 276; GOT 55 U/L (10-34); GPT 68 U/L (10-44); POTASSIUM 3.6 mmol/L (3.5-5.1); SODIUM 136 mmol/L (136-145); TCO2 30 mmol/L (25-35); TOTAL BILIRUBIN 1.64 mg/dL (0.20-1.00); TOTAL PROTEIN 6.7 g/dL (6.3-8.3)
[2016-11-12 07:38] VITALS: BP 169/81
[2016-11-12] MEDS ORDERED: PRINIVIL PO SCH (07:59)
[2016-11-12] MEDS: PHENERGAN IV PRN (10:36)
[2016-11-12 11:00] LABS: HEPATITIS PROFILE ACUTE SEE COMMENTS (())
--- NOTE | 2016-11-12 12:10 | PROGRESS NOTE ---
DATE: 11/12/2016 HISTORY OF PRESENT ILLNESS: This patient was admitted because of nausea. He was found to be having some elevated white count and he was given piperacillin IV for treating possible infection. The patient was having constant nausea and occasional vomiting for more than 6 months. He is getting a gastric emptying study done today. The patient has a history of chronic constipation, fatty liver, gastroesophageal reflux, history of Em esophagitis, and also chronic gastritis. His previous gastric emptying study was negative. His upper GI barium swallow also was negative. He had an EGD done in 2014. Patient is doing better, although he still complains of nausea. He was given some Reglan for 2 days. To him it did not make much of a difference at point. The CT scan of the thorax did not show any significant pneumonia. Echocardiogram was okay. One of his blood cultures showed gram-negative rods which could be contamination and 3 other cultures were all negative. The patient seems to be free of any infection now. I explained to the patient and his sister, who was with him, that the patient most likely has peripheral neuropathy and also autonomic neuropathy involving the colon and mildly neuropathy of the stomach. When his blood sugar goes out of control he may get significant nausea and sometimes vomiting. I recommended that [facility] or his assisted care facility monitor his blood sugars frequently and adjust his medications carefully. The patient should get laxatives to get a good bowel movement and try to avoid foods which cause too much gas. PHYSICAL EXAMINATION: General: Patient's condition remained to be stable. He is lying down. He is not uncomfortable. Vital Signs: The temperature is 98.5 degrees, pulse rate is 71, respiratory rate is 18, blood pressure is 169/81. Skin: Warm and dry. HEENT : Mucous membranes are moist. Neck: Supple. Cardiac: Both heart sounds are heard. Rhythm is regular. I could not hear any murmur. Lungs: Reveal a few basilar crackles. Abdomen: Tympanitis present from gaseous distention. Bowel sounds are normally heard. There is no significant tenderness present, although the patient is complaining of pain on both flanks. LABORATORY DATA: The WBC count is 10.94, hemoglobin 10.8, hematocrit 33.7, platelet count is 237,000. Total bilirubin 1.64 which is much better than before, AST is 55, ALT is 68, albumin is 3, sodium 136, potassium 3.3.Gastric emptying study is normal T1/2 being 32 minutes, it is rapid emptying, All viral hepatitis studies are negative IMPRESSIONS: 1. Fatty liver. 2. Possible mild steatotic hepatitis. 3. Diabetes mellitus with autonomic neuropathy. 4. Uncontrolled diabetes mellitus, getting under control. DISCUSSION: This patient has had a skin lesion which is compatible with singles. It started a few weeks ago and at that time, the patient started being unwell with generalized malaise and being more sick than usual. The change in his balance made him have more nauseous and perhaps some changes in general condition resulted in more steatotic hepatitis which we knew he already had and the diabetes might have gone out of control. At the time of entry his blood sugar was quite high. All resulted in having more symptoms which made the patient come into the hospital. Now he is at the tail end of recovery and I believe that the main problem was the shingles which tipped the balance off. Right now it is all under control. The shingles seem to be healing with no significant evidence of any kind of infectious disease. If he had another type of infection it is not very clear at this point. However, antibiotics were given. I explained all of these things to the patient and discussed with Dr. Donis. Since the gastric emptying study is negative he should be taken off the Reglan and if it is positive, Reglan 5 mg 4 times a day a.c. and at bedtime should be given and then. He should be on a diabetic diet and better monitoring of blood sugar should be done at the [facility] care facility. I believe that he is free of any acute infectious disease at this point. However, we may need to wait for the results of the second 2 sets of blood cultures I will see him for follow up in 6 months as usual [facility]
--- NOTE | 2016-11-12 13:25 | Diag Imaging Result Document ---
PROCEDURE NAME: GASTRIC EMPTYING - 11/12/2016 NUCLEAR MEDICINE GASTRIC EMPTYING EXAM. TECHNIQUE: Five hundred and eighty microcuries technetium sulfur colloid taken with oatmeal. Imaging for 60 minutes performed. T 1/2 is calculated to be 32 minutes. FINDINGS: Quick gastric emptying with a T 1/2 of only 32 minutes.
[2016-11-12] MEDS ORDERED: ZOFRAN PO PRN (14:42)
[2016-11-12] MEDS: COLACE PO SCH (15:19)
[2016-11-12] MEDS: INDERAL LA PO SCH (15:19)
[2016-11-12] MEDS: BUSPAR PO SCH (15:19)
[2016-11-12] MEDS: FLORASTOR PO SCH (15:19)
[2016-11-12] MEDS: MIRALAX PO SCH (15:20)
[2016-11-12] MEDS: JANUVIA PO SCH (15:20)
[2016-11-12] MEDS: NEURONTIN PO SCH ×2 (15:20→15:21)
[2016-11-12] MEDS: LASIX PO SCH (15:20)
[2016-11-12] MEDS: PATIENT'S OWN MED TOP SCH (15:21)
[2016-11-12] MEDS: VITAMIN B-12 SL SCH (15:22)
[2016-11-12] MEDS: ZOLOFT PO SCH (15:22)
[2016-11-12] MEDS: VITAMIN D PO SCH (15:22)
[2016-11-12] MEDS: ZYLOPRIM PO SCH (15:22)
[2016-11-12] MEDS: PRILOSEC PO SCH (16:34)
--- NOTE | 2016-11-13 08:00 | DISCHARGE SUMMARY ---
ADMISSION DATE: 11/10/2016 DISCHARGE DATE: 11/12/2016 CONSULTATIONS: Bean Mantilla MD with Gastroenterology. PERTINENT PROCEDURES: 1. Gastric emptying study. The T half is calculated to be 32 minute. 2. Echocardiogram showed an EF of 63%. Chamber was not dilated. No wall motion abnormality. 3. Abdomen and pelvis CT showed a cholecystectomy, fatty infiltration of the liver. No renal stones or hydronephrosis. Trace fluid in the right pericolic gutter. Minimally prominent periaortic lymph nodes. No bowel obstruction. No abscesses. 4. Chest CT showed evidence of prior granulomatous infection but no acute pneumonia. Fat in the mediastinum. Cholecystectomy and fatty infiltration of the liver. DISCHARGE DIAGNOSES: 1. Fatty liver. 2. Possible mild steatotic hepatitis. 3. Intractable nausea and vomiting. The patient had a normal gastric emptying study time per Dr. Mantilla, the GI specialist. If the study was negative, he is to be taken off Reglan and if it is positive, he will resume Reglan [address] him on a diabetic diet. Monitor blood sugars at the [facility]. 4. Hyperlipidemia, aware. 5. Hypertension. Patient had a low-dose JARRET inhibitor added to his regimen. 6. Diabetes. Continue home medications. 7. Chronic pain. Continue with his Suboxone and trazodone for sleep. 8. Blindness, aware. HOSPITAL COURSE: Mr. No is a 61-year-old male with a past medical history of hypertension, hyperlipidemia, diabetes mellitus type 2, chronic pain, who is completely blind, presented to the ED with his sister from the [facility] in [place] with complaints of nausea and vomiting for 6 months, but on the night of his admission, he began having complaint of chest pain, a recent history of shingles and he was treated with Suboxone for his chronic pain. His chest pain in the ED was found to be more epigastric in nature. Per the sister, he has also had a recent diagnosis of gastroparesis and also reported an abscess on his coccyx that had an I and D. The patient refused during initial assessment to have that evaluated. The patient was noted to have a fever in the emergency room. He was initially given Zosyn in the ED. Laboratory data was grossly normal. Had a mildly elevated D-dimer. CT of the chest was obtained. CT showed evidence of prior granulomatous infection but no acute pneumonia. Fat in the mediastinum with fatty infiltration of the liver. His ALT and AST were elevated at 103 and 332, and a bilirubin of 1.29. CT scan showed FERRIS. The patient was admitted with a GI consult. He was started on antiemetics. Patient did undergo a gastric emptying study that was a quick gastric emptying with a T half of only 32 minutes, and per Dr. Mantilla, if it was positive, the patient should be placed on Reglan 4 times a day. If it was negative, he is to be taken off the Reglan and will see him back in about 1 month. He stated he should follow a diabetic diet for better monitoring of his blood sugars at [facility]. He felt that he could be discharged back today. Vital signs at time of discharge, temperature is 98.5 degrees, heart rate 71, respirations are 18, blood pressure 169/81. O2 is 93%. DISCHARGE DIET: Diabetic. DISCHARGE MEDICATIONS: 1. Allopurinol 300 mg p.o. daily. 2. Suboxone 8 mg per 2 mg sublingual film t.i.d. 3. Neurontin 800 mg p.o. t.i.d. 4. Flomax 4 mg p.o. at bedtime. 5. Trazodone 150 mg p.o. at bedtime. 6. Januvia 100 mg p.o. daily. 7. Bisacodyl 1 each p.o. RI p.r.n. 8. Polysporin 1 each ophthalmic p.r.n. 9. Voltaren 1% gel 1 each topical p.r.n. 10. Preparation-H 1 each RI p.r.n. 11. Tylenol 325 mg p.o. daily. 12. BuSpar 7.5 mg p.o. b.i.d. 13. Vitamin B12. 14. Sof-Lax 100 mg p.o. daily. 15. Florastor 250 mg p.o. daily. 16. Glipizide XL 10 mg p.o. daily. 17. Inderal LA 120 mg p.o. daily. 18. Lasix 40 mg p.o. daily. 19. Loratadine 10 mg p.o. daily. 20. Lotrimin 1% cream 1 each topical daily. 21. Zofran 4 mg p.o. daily. 22. MiraLAX 17 g daily. 23. Senna S tablet for each p.o. b.i.d. 24. Zoloft 100 mg p.o. daily. 25. 40 one each topical b.i.d. 26. Vitamin D 2000 units p.o. daily. 27. Nitroglycerin 0.4 mg sublingual q.5 minutes p.r.n. 28. Prinivil 20 mg p.o. daily. 29. Zofran ODT 8 mg p.o. q.8 hours p.r.n. FOLLOWUP: Patient is being discharged back to the [facility] in [place]. He can follow up with his primary care physician, Dr. Raina Millard as well as Dr. Mantilla in 1 month. The patient can return to the ED for any worsening of symptoms. Dictated by BERTIN Murray for Barber Donis MD MTDD
== END 2016-11-12 16:57 | disposition home or self-care (01) | DRG 392 ==
LOC: ED 17:24 → 4N 11-10 06:13 → 3N 11-10 18:39
PROVIDERS: ATTEND Internal Medicine
DX: R11.2 Nausea with vomiting, unspecified (principal); K75.81 Nonalcoholic steatohepatitis (NASH); E66.01 Morbid (severe) obesity due to excess calories; R13.10 Dysphagia, unspecified; E11.65 Type 2 diabetes mellitus with hyperglycemia; B02.9 Zoster without complications; I10 Essential (primary) hypertension; S04.019 Injury of optic nerve, unspecified eye; R07.89 Other chest pain; H54.0 Blindness, both eyes; E78.5 Hyperlipidemia, unspecified; K59.09 Other constipation; N40.0 Benign prostatic hyperplasia without lower urinary tract symptoms; M45.9 Ankylosing spondylitis of unspecified sites in spine; G47.33 Obstructive sleep apnea (adult) (pediatric); G89.29 Other chronic pain; F32.9 Major depressive disorder, single episode, unspecified; Z79.899 Other long term (current) drug therapy; Z79.84 Long term (current) use of oral hypoglycemic drugs; Z83.3 Family history of diabetes mellitus; Z82.49 Family history of ischemic heart disease and other diseases of the circulatory system; Z68.34 Body mass index [BMI] 34.0-34.9, adult
CPT/HCPCS: 51702; 51798; 71010; 71250; 74176; 78264; 80053; 80074; 81001; 82140; 82550; 82948; 83735; 83880; 84443; 84484; 85025; 85379; 85610; 85730; 87040; 87077; 87186; 93005; 93306; 96365; 96366; 96367; 96368; 96375; 96376; A9541; G0480; J0360; J0780; J1650; J1815; J1885; J2405; J2543; J2550; J2765; J3475; J3480; J7030; 80324; 80345; 80346; 80349; 80353; 80358; 80361; 80365; 83992; S0077

== ENCOUNTER 2017-04-08 15:04 | Inpatient (IN) ==
[2017-04-08 15:26] LABS: MANUAL DIFF NEEDED? NO
[2017-04-08 15:33] LABS: BASO% 0.5 % (0.0-0.8); EOS% 3.6 % (0.0-10.0); HEMATOCRIT 36.6 % (42.0-52.0); HEMOGLOBIN 10.9 g/dL (14.0-18.0); LYMPH# 1.06 X1000 (1.2-3.4); LYMPH% 12.6 % (20.5-51.1); MCHC 29.8 g/dL (33-37); MCV 90.6 FL (81-99); MONO# 0.78 X1000 (0.11-0.59); MONO% 9.3 % (1.7-9.3); PLT 246 X1000 (130-400); RBC 4.04 XMIL (4.7-6.1)
[2017-04-08 16:10] LABS: AGAP 9; ALBUMIN 3.4 g/dL (3.5-5.0); ALKALINE PHOSPHATASE 69 U/L (32-122); BUN 9 mg/dL (8-22); CALCIUM 8.5 mg/dL (8.8-10.2); CHLORIDE 90 mmol/L (98-107); COSMO 269; GOT 16 U/L (10-34); GPT 5 U/L (10-44); POTASSIUM 4.4 mmol/L (3.5-5.1); SODIUM 132 mmol/L (136-145); TCO2 33 mmol/L (25-35); TOTAL BILIRUBIN 0.66 mg/dL (0.20-1.00); TOTAL PROTEIN 7.7 g/dL (6.3-8.3)
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
[2017-04-08 16:44] LABS: UR AMPHETAMINES QUAL NONE DETECTED (NONE DETECT); UR BARBITUATES QUAL NONE DETECTED (NONE DETECT); UR BENZODIAZEPIN QUAL NONE DETECTED (NONE DETECT); UR CANNABINOIDS QUAL NONE DETECTED (NONE DETECT); UR COCAINE QUAL NONE DETECTED (NONE DETECT); UR METHADONE QUAL NONE DETECTED (NONE DETECT); UR OPIATES QUAL NONE DETECTED (NONE DETECT); UR OXYCODONE QUAL NONE DETECTED (NONE DETECT); UR PCP QUAL NONE DETECTED (NONE DETECT)
--- NOTE | 2017-04-08 18:17 | HISTORY AND PHYSICAL ---
HISTORY OF PRESENT ILLNESS: This is a 62-year-old presented complaining of shortness of breath and weakness and lethargy. His O2 saturations were low. Chest x-ray was unremarkable. Exam did not reveal pulmonary edema and appeared to be hypoventilation. He is on Suboxone. He is on O2 at the present time. He is lethargic. His brother was at the bedside. I think he lives and had [place] in [place]. He was last admitted here on 11/10/2014 with nausea and vomiting. At that time a gastric emptying study showed TF was calculated at 32 minutes. Echocardiogram showed ejection fraction of 63%. No wall motion abnormalities. Abdominopelvic CT showed cholecystectomy and fatty infiltration of the liver. No renal stones or hydronephrosis. CT of the chest showed evidence of prior granulomatous infection. So he felt like he had fatty liver, possible mild steatohepatitis, intractable nausea and vomiting at that time, hyperlipidemia, hypertension, diabetes, chronic pain. He is on Suboxone and trazodone for sleep and aware of his blindness. PAST MEDICAL HISTORY: 1. History of hyperlipidemia. 2. Hypertension. 3. Diabetes mellitus type 2. 4. Chronic pain syndrome. 5. He is completely blind. PAST SURGICAL HISTORY: 1. EGD and colonoscopy. 2. Cholecystectomy. 3. TURP. SOCIAL HISTORY: He denies alcohol or tobacco or illicit drugs. He did have a chronic history of oxycodone which he has taken for chronic pain. He is now on Suboxone. I think they recently tried to taper that. FAMILY HISTORY: Positive for diabetes and hypertension. ALLERGIES: IV and oral contrast, iodine which causes anaphylaxis. HOME MEDICATIONS: He is on trazodone 150 mg at bedtime, Flomax 0.4 mg daily, Suboxone / I think t.i.d., Neurontin 800 mg t.i.d., allopurinol 300 mg daily, Dulcolax suppository 1 p.r.n. daily, Preparation-H p.r.n., Polysporin ointment ophthalmic p.r.n., Sof-Lax 100 mg p.o. daily, Tylenol 325 daily, Zofran 4 mg daily. Long list. He has Senokot. He takes BuSpar, Lasix, vitamin D, Inderal LA 120 mg daily, MiraLAX, loratadine, Florastor I think he is taking 250 mg daily, Voltaren cream, Lotrimin cream, urea topically, vitamin B12 2500 mg sublingual daily, glipizide 10 mg daily, Januvia 100 mg daily. PHYSICAL EXAMINATION: GENERAL: Today he is lethargic. Does answer questions. He is arousable. Breathing is shallow. VITAL SIGNS: Temp 98.5 degrees, pulse 60, respirations 22, blood pressure 172/80, O2 saturation 96%. Weight 260. HEENT: Pounds pupils are equal, round. LUNGS: Clear in all lung peralta. CARDIOVASCULAR: Regular rhythm and rate without murmur or S3. ABDOMEN: Soft, nontender, nondistended. SKIN: Warm and dry. EXTREMITIES: He has 2+ pitting edema from ankle to mid us. LABORATORY: White blood cell count 8,430, hematocrit 36, platelet count 246,000. Sodium 132, potassium 4.4, chloride 90, bicarb 33, BUN 9, creatinine 1.2. Blood sugar was 200. Calcium 8.5, albumin 3.4. Urine drug screen negative for opiates, oxycodone, methadone, barbiturates, phencyclidine, amphetamines, benzodiazepines, urine cocaine, and cannabinoids. ASSESSMENT AND PLAN: 1. Appears to have hypoventilation. Will plan to hold sedation. At least cut back on Suboxone and give him supplemental O2. Use some bronchodilators. Do not see any active infection at this time. 2. Hypertension. Continue his blood pressure. 3. Chronic venous stasis. He has a normal left ventricular function and ejection fraction. 4. Morbid obesity. 5. He is blind. cc: Demetris Luong MD
[2017-04-08] MEDS ORDERED: TUCKS PADS PR PRN (19:02)
[2017-04-08] MEDS ORDERED: NITROGLYCERIN SL PRN (19:02)
[2017-04-08] MEDS ORDERED: [UNRECOGNIZED DRUG - OTHER] OPH PRN (19:02)
[2017-04-08] MEDS ORDERED: DULCOLAX PR PRN (19:02)
[2017-04-08] MEDS: DESYREL PO SCH (20:42)
[2017-04-08] MEDS: FLOMAX PO SCH (20:43)
[2017-04-08] MEDS: NS 1,000 ML IV SCH (20:43)
[2017-04-08] MEDS: LASIX IV SCH (20:43)
[2017-04-08] MEDS: BUSPAR PO SCH (20:43)
[2017-04-08] MEDS: PERICOLACE PO SCH (20:49)
[2017-04-08] MEDS ORDERED: UREA TOP SCH (21:00)
[2017-04-08] MEDS: NORCO-7.5 PO PRN (21:14)
[2017-04-08 21:35] LABS: URINE CULTURE NEEDED? NO; URINE MICRO REVIEW NEEDED? NO; URINE SOURCE CATH
[2017-04-08 21:41] LABS: BILIRUBIN URINE NEGATIVE (NEGATIVE); BLOOD URINE NEGATIVE (NEGATIVE); COLOR STRAW; GLUCOSE URINE NEGATIVE (NEGATIVE); LEUKOCYTES URINE NEGATIVE (NEGATIVE); NITRITE URINE NEGATIVE (NEGATIVE); PROTEIN URINE NEGATIVE (NEGATIVE); SP GRAVITY URINE 1.003; TURBIDITY URINE CLEAR (CLEAR); UROBILINOGEN URINE NORMAL (NORMAL)
[2017-04-08 21:43] LABS: UR EPITHELIAL CELLS <10 /HPF (<10); URINE BACTERIA NEGATIVE /HPF; URINE RBC <10 /HPF (<10); URINE WBC <10 /HPF (<10)
[2017-04-08] MEDS: LOTRIMIN 1% CREAM TOP SCH (23:10)
[2017-04-08] MEDS: TYLENOL PO PRN (23:19)
[2017-04-09] MEDS: NORCO-7.5 PO PRN ×3 (04:41→15:12)
[2017-04-09 05:33] LABS: MANUAL DIFF NEEDED? NO
--- NOTE | 2017-04-09 05:45 | EKG Report ---
Test Performed on : 04/08/2017 3:27:41 PM Test Reason : chest pain Blood Pressure : / mmHG Vent. Rate : 064 BPM Atrial Rate : 064 BPM P-R Int : 142 ms QRS Dur : 078 ms QT Int : 438 ms P-R-T Axes : 028 021 007 degrees QTc Int : 451 ms Normal sinus rhythm. Normal ECG When compared with ECG of 10-NOV-2016 02:01, No significant change was found Unconfirmed Result
[2017-04-09 05:53] LABS: BASO% 0.4 % (0.0-0.8); EOS# 0.32 X1000 (0.0-0.7); EOS% 4.1 % (0.0-10.0); HEMATOCRIT 34.3 % (42.0-52.0); HEMOGLOBIN 10.2 g/dL (14.0-18.0); LYMPH# 1.13 X1000 (1.2-3.4); LYMPH% 14.6 % (20.5-51.1); MCH 26.8 PG (27-31); MCHC 29.7 g/dL (33-37); MONO# 0.73 X1000 (0.11-0.59); MONO% 9.4 % (1.7-9.3); MPV 9.7 FL (7.4-10.4); NEUT% 71.5 % (42.2-75.2); PLT 226 X1000 (130-400); RBC 3.81 XMIL (4.7-6.1)
--- NOTE | 2017-04-09 06:23 | Extremity Venous Study ---
PROCEDURE NAME: Venous U/S Bilateral Legs - 04/08/2017 REQUESTING PHYSICIAN: Dr. Bhakta. ARCHITECTURE MANAGER: Mann. INDICATIONS: Edema. PROCEDURE: Bilateral lower extremity venous duplex and color flow imaging. EQUIPMENT: Robodromid E9 ultrasound system with a 9 LD transducer. FINDINGS: Images of the bilateral lower extremity venous systems were obtained in both sagittal and transverse planes. Doppler was used to evaluate veins for spontaneity, phasicity, respiratory excursion, and digital augmentation. RESULTS: Limited study per the gis mapping technician's note secondary to edema making the visualization of the veins difficult but on this study, there was no obvious superficial or deep venous thrombosis noted. There appears to be normal venous compression and normal venous flow. INTERPRETATION: Limited study secondary to edema but no obvious superficial or deep venous thrombosis noted on this study to the bilateral lower extremities. cc: Kannan Costa MD
[2017-04-09 06:37] LABS: AGAP 9; ALBUMIN 2.9 g/dL (3.5-5.0); ALKALINE PHOSPHATASE 73 U/L (32-122); BUN 10 mg/dL (8-22); CALCIUM 8.2 mg/dL (8.8-10.2); CHLORIDE 95 mmol/L (98-107); COSMO 271; GOT 15 U/L (10-34); GPT < 5 U/L (10-44); MAGNESIUM 1.6 mg/dL (1.5-2.7); POTASSIUM 4.8 mmol/L (3.5-5.1); SODIUM 135 mmol/L (136-145); TCO2 31 mmol/L (25-35); TOTAL BILIRUBIN 0.75 mg/dL (0.20-1.00); TOTAL PROTEIN 6.7 g/dL (6.3-8.3)
--- NOTE | 2017-04-09 07:10 | Diag Imaging Result Doc PS360 ---
EXAM: CHEST-PORTABLE HISTORY: SOB, hypoventilation TECHNIQUE: Portable COMPARISON: 11/09/2016 FINDINGS: The patient is rotated to the right. The heart remains enlarged. There are increased interstitial markings bilaterally believed to be pulmonary edema. Findings are more pronounced on the current exam. There is at least a small right-sided pleural effusion. IMPRESSION: Overall interval worsening. Electronically signed by Sourav Boyce 04/09/2017 7:08 AM
--- NOTE | 2017-04-09 07:51 | EKG Report ---
Test Performed on : 04/09/2017 06:36:22 AM Test Reason : chest pain Blood Pressure : / mmHG Vent. Rate : 059 BPM Atrial Rate : 059 BPM P-R Int : 148 ms QRS Dur : 080 ms QT Int : 456 ms P-R-T Axes : 084 043 014 degrees QTc Int : 451 ms Sinus bradycardia. Otherwise normal ECG When compared with ECG of 08-APR-2017 15:27, No significant change was found Confirmed by Sravan Chaparro DO ([id number]) on 04/11/2017 1:04:32 PM
[2017-04-09] MEDS: INDERAL LA PO SCH (08:58)
[2017-04-09] MEDS: PERICOLACE PO SCH ×2 (08:58→20:09)
[2017-04-09] MEDS: MIRALAX PO SCH (08:58)
[2017-04-09] MEDS: VITAMIN B-12 SL SCH (08:58)
[2017-04-09] MEDS: JANUVIA PO SCH (08:59)
[2017-04-09] MEDS: GLUCOTROL XL PO SCH (08:59)
[2017-04-09] MEDS ORDERED: SITAGLIPTIN PHOSPHATE 100 MG PO SCH (09:00)
[2017-04-09] MEDS: ZYLOPRIM PO SCH (09:00)
[2017-04-09] MEDS ORDERED: POLYETHYLENE GLYCOL 17 GM PO SCH (09:00)
[2017-04-09] MEDS ORDERED: NON-FORMULARY MED (Cyanocobalamin (Vitamin B-12) [Vitamin B12] 2,500 MCG) SL SCH (09:00)
[2017-04-09] MEDS ORDERED: FLORASTOR PO SCH (09:00)
[2017-04-09] MEDS ORDERED: ZOLOFT PO SCH (09:00)
[2017-04-09] MEDS ORDERED: TYLENOL 10 MG/KG PO SCH (09:00)
[2017-04-09] MEDS ORDERED: GLIPIZIDE 10 MG PO SCH (09:00)
[2017-04-09] MEDS ORDERED: SERTRALINE HCL 100 MG PO SCH (09:00)
[2017-04-09] MEDS ORDERED: EUCERIN CREAM TOP SCH (09:00)
[2017-04-09] MEDS: CLARITIN PO SCH (09:01)
[2017-04-09] MEDS: PRINIVIL PO SCH (09:01)
[2017-04-09] MEDS: COLACE PO SCH (09:01)
[2017-04-09] MEDS: NEURONTIN PO SCH ×3 (09:01→17:10)
[2017-04-09] MEDS: VITAMIN D PO SCH (09:01)
[2017-04-09] MEDS: LASIX IV SCH ×2 (09:01→20:10)
[2017-04-09] MEDS: BUSPAR PO SCH ×2 (09:01→20:05)
[2017-04-09] MEDS: LOTRIMIN 1% CREAM TOP SCH ×2 (09:02→20:18)
[2017-04-09] MEDS: EUCERIN CREAM TOP SCH ×2 (09:03→20:18)
[2017-04-09] MEDS: TYLENOL PO SCH (09:06)
[2017-04-09] MEDS: VOLTAREN 1% GEL TOP PRN (09:23)
[2017-04-09] MEDS: POLYSPORIN OINTMENT TOP PRN (09:24)
[2017-04-09] MEDS ORDERED: LASIX IV SCH (13:15)
--- NOTE | 2017-04-09 14:07 | PROGRESS NOTE ---
DATE: 04/09/2017 SUBJECTIVE: The patient is awake and alert. Oxygenation is good. He has complained of pain in the left leg and left testicle. We held his Suboxone, as he was having hypoventilation with hypercapnic respiratory dysfunction. OBJECTIVE: Vital Signs: Temperature afebrile. He is 97.7 this morning. Pulse 68. Respirations 16. Blood pressure 146/76. Lungs: Clear anterolateral. Cardiovascular: Regular rhythm and rate, without murmur or S3. Abdomen: Soft. Skin: Warm and dry. LABORATORY STUDIES: Urine output 1700 mL. White count 7740, hematocrit 34, platelet count 226,000. Sodium 135, potassium 4.8, chloride 95, BUN 10, creatinine 1.1. Blood sugar 158/123/113/167. Chest x-ray from this morning: Overall interval worsening. Patient rotated to the right. Heart remains enlarged. Increased interstitial markings, I believe from the pulmonary edema. There is at least a small amount of right-sided pleural effusion. Echocardiogram done on 11/10/2016, and at that time normal left ventricular function. Ejection fraction 63%. Suspect elevation of left atrial pressure, diastolic dysfunction. ASSESSMENT AND PLAN: 1. Hypoventilation, with some pulmonary venous hypertension. We will give some Lasix to try and get him back on a little bit of Suboxone, but I think we need to cut it down for hypoventilation. 2. Hypertension. Blood pressure is well-controlled. 3. Chronic venous stasis. 4. Morbid obesity. cc: Demetris Luong MD
[2017-04-09] MEDS ORDERED: DITROPAN PO ONE (14:36)
[2017-04-09] MEDS: NS 1,000 ML IV SCH (18:24)
[2017-04-09] MEDS: FLOMAX PO SCH (20:05)
[2017-04-09] MEDS: DITROPAN PO SCH (20:06)
[2017-04-09] MEDS: DESYREL PO SCH (20:07)
[2017-04-10] MEDS: NORCO-7.5 PO PRN ×3 (01:50→14:19)
[2017-04-10] MEDS: ZOFRAN IV PRN (05:19)
--- NOTE | 2017-04-10 06:09 | Diag Imaging Result Doc PS360 ---
EXAM: CHEST-PORTABLE HISTORY: pulmonary venous HTN TECHNIQUE: Portable COMPARISON: 04/09/2017 FINDINGS: There are increased interstitial markings bilaterally. The appearance is similar to that of the prior exam. There is a small right-sided pleural effusion with basilar atelectasis. Heart remains mildly enlarged. The overall appearance is similar to that of the prior exam. IMPRESSION: No interval improvement. Electronically signed by Sourav Boyce 04/10/2017 6:07 AM
[2017-04-10] MEDS: TYLENOL PO PRN (06:40)
--- NOTE | 2017-04-10 07:44 | PROGRESS NOTE ---
DATE: 04/10/2017 SUBJECTIVE: Mr. No is breathing comfortably, but he is complaining of scrotal pain. He would like to get the Briones catheter out. He is having some bladder spasm as well. Of course, his back hurts him. OBJECTIVE: Vital Signs: Temp 97.2 degrees, pulse 60, respirations 13, blood pressure 130/64. HEENT: Pupils are equal and round. Lungs: Clear in all lung peralta. Cardiovascular: Regular rhythm and rate without murmur or S3. Abdomen: Soft. Skin: Warm and dry. Weight 265 pounds. Urine output over 4 L. IMAGING AND LABORATORY DATA: Lab reviewed from yesterday. Hematocrit stable at 34. Blood sugars 148, 164, 109. Chest x-ray: No interval improvement. There are increased interstitial markings bilaterally. Appearance is similar to that of prior exam. Right-sided pleural effusion, basilar atelectasis. I did start him on some Lasix yesterday. ASSESSMENT AND PLAN: 1. Hypoventilation. This is improved. He did have some pulmonary venous hypertension on chest x- ray, and we are diuresing some, and I gave him some volume as well. Continue to hold the Suboxone. 2. Hypertension. Blood pressure control. 3. Chronic venous stasis, aware. 4. Morbid obesity. 5. Complains of scrotal pain. Will take his Briones catheter out. He is also having some bladder spasms, and I think we will use some Ditropan. Review of his orders. Will continue present regimen. Will take the Briones catheter out. He is on 40 mg of Lasix intravenously twice a day. cc: Demetris Luong MD
[2017-04-10] MEDS: INDERAL LA PO SCH (08:01)
[2017-04-10] MEDS: PERICOLACE PO SCH ×2 (08:01→20:12)
[2017-04-10] MEDS: JANUVIA PO SCH (08:01)
[2017-04-10] MEDS: DITROPAN PO SCH ×2 (08:01→20:11)
[2017-04-10] MEDS: PRINIVIL PO SCH (08:01)
[2017-04-10] MEDS: VITAMIN B-12 SL SCH (08:01)
[2017-04-10] MEDS: LASIX IV SCH ×2 (08:01→20:12)
[2017-04-10] MEDS: BUSPAR PO SCH ×2 (08:01→20:11)
[2017-04-10] MEDS: VITAMIN D PO SCH (08:01)
[2017-04-10] MEDS: CULTURELLE PO SCH (08:01)
[2017-04-10] MEDS: CLARITIN PO SCH (08:02)
[2017-04-10] MEDS: COLACE PO SCH (08:02)
[2017-04-10] MEDS: GLUCOTROL XL PO SCH (08:02)
[2017-04-10] MEDS: NEURONTIN PO SCH ×3 (08:02→16:24)
[2017-04-10] MEDS: MIRALAX PO SCH (08:02)
[2017-04-10] MEDS: EUCERIN CREAM TOP SCH ×2 (08:02→20:12)
[2017-04-10] MEDS: LOTRIMIN 1% CREAM TOP SCH ×2 (08:03→20:12)
[2017-04-10] MEDS: TYLENOL PO SCH (08:03)
[2017-04-10] MEDS: ZYLOPRIM PO SCH (08:04)
[2017-04-10] MEDS: FLONASE NAS SCH ×2 (11:38→20:12)
[2017-04-10] MEDS: MUCINEX PO SCH ×2 (11:38→20:11)
[2017-04-10] MEDS: NS 1,000 ML IV SCH (15:58)
[2017-04-10] MEDS: ULTRAM PO PRN (18:33)
[2017-04-10] MEDS: DESYREL PO SCH (20:11)
[2017-04-10] MEDS: FLOMAX PO SCH (20:11)
[2017-04-11] MEDS: NORCO-7.5 PO PRN ×4 (02:09→20:56)
[2017-04-11] MEDS: ULTRAM PO PRN ×3 (03:18→22:31)
[2017-04-11] MEDS: JANUVIA PO SCH (08:22)
[2017-04-11] MEDS: PERICOLACE PO SCH ×2 (08:22→20:56)
[2017-04-11] MEDS: MIRALAX PO SCH (08:22)
[2017-04-11] MEDS: INDERAL LA PO SCH (08:23)
[2017-04-11] MEDS: MUCINEX PO SCH ×2 (08:23→20:56)
[2017-04-11] MEDS: TYLENOL PO SCH (08:23)
[2017-04-11] MEDS: NEURONTIN PO SCH ×3 (08:23→16:05)
[2017-04-11] MEDS: COLACE PO SCH (08:23)
[2017-04-11] MEDS: CLARITIN PO SCH (08:23)
[2017-04-11] MEDS: CULTURELLE PO SCH (08:23)
[2017-04-11] MEDS: DITROPAN PO SCH ×2 (08:23→20:55)
[2017-04-11] MEDS: VITAMIN D PO SCH (08:23)
[2017-04-11] MEDS: VITAMIN B-12 SL SCH (08:23)
[2017-04-11] MEDS: BUSPAR PO SCH ×2 (08:24→20:55)
[2017-04-11] MEDS: GLUCOTROL XL PO SCH (08:24)
[2017-04-11] MEDS: LASIX IV SCH ×2 (08:24→20:56)
[2017-04-11] MEDS: ZYLOPRIM PO SCH (08:24)
[2017-04-11] MEDS: PRINIVIL PO SCH (08:24)
[2017-04-11] MEDS: LOTRIMIN 1% CREAM TOP SCH ×2 (08:28→20:55)
[2017-04-11] MEDS: FLONASE NAS SCH ×2 (10:37→20:57)
[2017-04-11] MEDS: NS 1,000 ML IV SCH ×2 (12:05→14:09)
[2017-04-11] MEDS: EUCERIN CREAM TOP SCH ×2 (12:36→20:55)
--- NOTE | 2017-04-11 15:23 | Diag Imaging Result Doc PS360 ---
EXAM: CHEST-PORTABLE - 04/11/2017 HISTORY: pulmonary htn TECHNIQUE: Portable chest 1512 COMPARISON: 04/10/2017 FINDINGS: There is stable cardiomegaly. There is been some decrease in pulmonary edema. There is mild residual edema. There has been associated decrease in right pleural effusion. There is no pneumothorax identified. IMPRESSION: Interval decrease in pulmonary edema compared to prior. Mild residual edema with residual small right pleural effusion. Electronically signed by Jose Gonzalez 04/11/2017 3:20 PM
--- NOTE | 2017-04-11 15:26 | PROGRESS NOTE ---
DATE: 04/11/2017 SUBJECTIVE: Mr. No is actually feeling a little better. Still some pain and discomfort in the scrotum, having some spasm in the bladder but, overall, his breathing is better and he does feel more comfortable. We are going to move him out of the unit. OBJECTIVE: He remains afebrile, temperature 98.3 degrees, pulse 60, respirations 18, blood pressure 153/66. Lungs are clear in all lung peralta. Cardiovascular: Regular rhythm and rate without murmur or S3. Abdomen is soft. Skin is warm and dry. Urine output was over 6 L. LABORATORY: Lab reviewed from 04/09/2017 looks good. Blood sugar 163, 112, 170. ASSESSMENT AND PLAN: 1. Hypoventilation which has improved. He has pulmonary venous hypertension. He had some degree of anasarca with some swelling in the scrotum and penis as well. We did stop his Suboxone. He has been doing better. 2. Hypertension. Blood pressures appear to be under better control. 3. Continue diuresis. 4. Some scrotal swelling. Continue Briones catheter. Hopefully, we can stop the Briones catheter tomorrow. 5. Morbid obesity. 6. Complaints of scrotal pain. Reviewed his orders. We did do a chest x-ray yesterday and probably repeat that again tomorrow. cc: Demetrsi Luong MD
[2017-04-11] MEDS: DESYREL PO SCH (20:55)
[2017-04-11] MEDS: FLOMAX PO SCH (20:56)
[2017-04-11] MEDS: POLYSPORIN OINTMENT TOP PRN (20:57)
[2017-04-11] MEDS: VOLTAREN 1% GEL TOP PRN (20:58)
[2017-04-12] MEDS: ZOFRAN IV PRN (02:55)
[2017-04-12] MEDS: NORCO-7.5 PO PRN ×4 (02:59→21:33)
[2017-04-12] MEDS: ULTRAM PO PRN (05:45)
[2017-04-12 06:03] LABS: AGAP 7; BUN 7 mg/dL (8-22); CHLORIDE 96 mmol/L (98-107); COSMO 281; MAGNESIUM 1.5 mg/dL (1.5-2.7); POTASSIUM 3.8 mmol/L (3.5-5.1); SODIUM 142 mmol/L (136-145); TCO2 39 mmol/L (25-35)
[2017-04-12] MEDS: JANUVIA PO SCH (08:15)
[2017-04-12] MEDS: COLACE PO SCH (08:15)
[2017-04-12] MEDS: CULTURELLE PO SCH (08:15)
[2017-04-12] MEDS: PERICOLACE PO SCH ×2 (08:15→20:11)
[2017-04-12] MEDS: TYLENOL PO SCH (08:16)
[2017-04-12] MEDS: PRINIVIL PO SCH (08:16)
[2017-04-12] MEDS: BUSPAR PO SCH ×2 (08:16→20:12)
[2017-04-12] MEDS: INDERAL LA PO SCH (08:16)
[2017-04-12] MEDS: GLUCOTROL XL PO SCH (08:16)
[2017-04-12] MEDS: ZYLOPRIM PO SCH (08:16)
[2017-04-12] MEDS: VITAMIN D PO SCH (08:16)
[2017-04-12] MEDS: VITAMIN B-12 SL SCH (08:16)
[2017-04-12] MEDS: DITROPAN PO SCH ×2 (08:17→20:12)
[2017-04-12] MEDS: LOTRIMIN 1% CREAM TOP SCH ×2 (08:17→20:10)
[2017-04-12] MEDS: EUCERIN CREAM TOP SCH ×2 (08:17→20:10)
[2017-04-12] MEDS: MIRALAX PO SCH (08:17)
[2017-04-12] MEDS: LASIX IV SCH ×2 (08:17→20:10)
[2017-04-12] MEDS: NEURONTIN PO SCH ×3 (08:17→16:25)
[2017-04-12] MEDS: CLARITIN PO SCH (08:17)
[2017-04-12] MEDS: MUCINEX PO SCH ×2 (08:17→20:10)
[2017-04-12] MEDS: FLONASE NAS SCH ×2 (08:18→20:10)
[2017-04-12] MEDS ORDERED: FLOMAX PO ONE (09:45)
[2017-04-12] MEDS: POTASSIUM CHLORIDE 20% LIQUID PO SCH (10:26)
--- NOTE | 2017-04-12 11:28 | PROGRESS NOTE ---
DATE: 04/12/2017 SUBJECTIVE: Mr. No is still having a lot of spasm in his bladder, hurting down in the scrotum. He is begging to get his Briones catheter out./ He does have decrease in his swelling. OBJECTIVE: Vital signs: Temperature 98.4 degrees, pulse 60, respirations 18, blood pressure 163/73. HEENT: Pupils are equal, round. Lungs: Clear in all lung peralta. Cardiovascular: Regular rhythm and rate without murmur or S3. Abdomen: Soft. Skin: Warm and dry. Intake and output: Urine output was 2300. LAB: White count 7,740, hematocrit 34, platelet count 226,000. Chemistry: Sodium 142, potassium 3.8, chloride 96, blood sugars 114, 148, 99. Chest x-ray: Interval increase in pulmonary edema compared to prior. Mild residual edema. Residual small right pleural effusion. So making progress. ASSESSMENT AND PLAN: 1. Anasarca, pulmonary venous hypertension, pleural fluid. Responding to diuresis. The swelling in the scrotum has gone down. Will take out the Briones catheter. 2. Hypoventilation, much improved. 3. Morbid obesity. 4. Legally blind. 5. Diabetes mellitus type 2. Sugar is under good control. I would like to cut down on his medicine list if we can. He is on Ditropan right now 2.5 mg b.i.d. I will put him on Flomax, up that to twice a day and see if we can DC his Briones catheter and help with his bladder spasms. cc: Demetris Luong MD
[2017-04-12] MEDS: NS 1,000 ML IV SCH (11:41)
[2017-04-12] MEDS: DESYREL PO SCH (20:11)
[2017-04-12] MEDS: FLOMAX PO SCH (20:12)
[2017-04-13] MEDS: NORCO-7.5 PO PRN ×3 (07:17→19:25)
[2017-04-13] MEDS: EUCERIN CREAM TOP SCH ×2 (08:56→22:29)
[2017-04-13] MEDS: FLONASE NAS SCH ×2 (08:56→22:30)
[2017-04-13] MEDS: LOTRIMIN 1% CREAM TOP SCH ×2 (08:56→22:30)
[2017-04-13] MEDS: INDERAL LA PO SCH (08:57)
[2017-04-13] MEDS: COLACE PO SCH (08:57)
[2017-04-13] MEDS: BUSPAR PO SCH ×2 (08:57→22:35)
[2017-04-13] MEDS: JANUVIA PO SCH (08:57)
[2017-04-13] MEDS: FLOMAX PO SCH ×2 (08:57→22:34)
[2017-04-13] MEDS: POTASSIUM CHLORIDE 20% LIQUID PO SCH (08:58)
[2017-04-13] MEDS: DITROPAN PO SCH ×2 (08:58→22:35)
[2017-04-13] MEDS: PERICOLACE PO SCH ×2 (08:58→22:35)
[2017-04-13] MEDS: ZYLOPRIM PO SCH (08:58)
[2017-04-13] MEDS: LASIX IV SCH ×2 (08:58→22:33)
[2017-04-13] MEDS: TYLENOL PO SCH (08:58)
[2017-04-13] MEDS: GLUCOTROL XL PO SCH (08:58)
[2017-04-13] MEDS: MUCINEX PO SCH ×2 (08:58→22:35)
[2017-04-13] MEDS: VITAMIN B-12 SL SCH (08:59)
[2017-04-13] MEDS: CULTURELLE PO SCH (08:59)
[2017-04-13] MEDS: CLARITIN PO SCH (08:59)
[2017-04-13] MEDS: PRINIVIL PO SCH (08:59)
[2017-04-13] MEDS: VITAMIN D PO SCH (08:59)
[2017-04-13] MEDS: MIRALAX PO SCH (08:59)
[2017-04-13] MEDS: NEURONTIN PO SCH ×3 (08:59→16:36)
[2017-04-13] MEDS: NS 1,000 ML IV SCH (10:28)
--- NOTE | 2017-04-13 17:22 | PROGRESS NOTE ---
DATE: 04/13/2017 SUBJECTIVE: Mr. No says he is hurting again in his legs and scrotum. His scrotum has gone down, the penile shaft and the scrotum have decreased in swelling traumatically. His legs have gone down in swelling. He is voiding without difficulty. Remains afebrile.Vital signs: Temperature 97.7 degrees, pulse 62, respirations 18, blood pressure 154/90. Lungs: Are clear in all lung peralta. Cardiovascular: Regular rhythm and rate without murmur or S3. Abdomen: Soft. Skin: Warm and dry. : Urine output 2800 mL. LABORATORY: Blood sugar 136, 107, 147. ASSESSMENT AND PLAN: 1. Anasarca, pulmonary venous hypertension and pleural fluid. Fluid in the scrotum. This is improving. Continues to diurese well. Can tell clinically and also radiographically. We will repeat his electrolytes today and see where his renal function. 2. Diabetes mellitus type 2. Sugars under good control. 3. Breathing comfortably. Moving air well. 4. Legally blind. 5. Has chronic pain in his legs and scrotum. We will stop his nasal cannula at his request. He is complaining of pain in his legs. He is on tramadol 50 mg q.6 hours p.r.n. I am going to leave that alone. I think his bowels are moving okay. So we will see if we can continue. I will get him up in a chair and keep working on his exercise and his strength. cc: Demetris Luong MD
[2017-04-13] MEDS: ULTRAM PO PRN (22:29)
[2017-04-13] MEDS: DESYREL PO SCH (22:33)
[2017-04-14] MEDS: NORCO-7.5 PO PRN ×3 (01:10→21:00)
[2017-04-14] MEDS: ZOFRAN IV PRN ×2 (05:26→14:35)
[2017-04-14] MEDS: BUSPAR PO SCH ×2 (09:25→20:59)
[2017-04-14] MEDS: DITROPAN PO SCH ×2 (09:26→21:00)
[2017-04-14] MEDS: CLARITIN PO SCH (09:26)
[2017-04-14] MEDS: COLACE PO SCH (09:26)
[2017-04-14] MEDS: CULTURELLE PO SCH (09:26)
[2017-04-14] MEDS: EUCERIN CREAM TOP SCH ×2 (09:27→21:00)
[2017-04-14] MEDS: FLOMAX PO SCH ×2 (09:27→20:59)
[2017-04-14] MEDS: FLONASE NAS SCH ×2 (09:28→21:03)
[2017-04-14] MEDS: GLUCOTROL XL PO SCH (09:28)
[2017-04-14] MEDS: INDERAL LA PO SCH (09:29)
[2017-04-14] MEDS: LASIX IV SCH ×2 (09:29→20:57)
[2017-04-14] MEDS: JANUVIA PO SCH (09:29)
[2017-04-14] MEDS: MIRALAX PO SCH (09:31)
[2017-04-14] MEDS: LOTRIMIN 1% CREAM TOP SCH ×2 (09:31→21:04)
[2017-04-14] MEDS: NEURONTIN PO SCH ×3 (09:32→18:30)
[2017-04-14] MEDS: POTASSIUM CHLORIDE 20% LIQUID PO SCH (09:32)
[2017-04-14] MEDS: MUCINEX PO SCH ×2 (09:32→20:57)
[2017-04-14] MEDS: PERICOLACE PO SCH ×2 (09:32→21:01)
[2017-04-14] MEDS: TYLENOL PO SCH (09:33)
[2017-04-14] MEDS: VITAMIN B-12 SL SCH (09:33)
[2017-04-14] MEDS: VITAMIN D PO SCH (09:33)
[2017-04-14] MEDS: PRINIVIL PO SCH (09:33)
[2017-04-14] MEDS: ZYLOPRIM PO SCH (09:33)
[2017-04-14] MEDS: NS 1,000 ML IV SCH (09:35)
--- NOTE | 2017-04-14 13:39 | Diag Imaging Result Doc PS360 ---
EXAM: CHEST-PORTABLE HISTORY: pulmonary venous HTN TECHNIQUE: AP portable at 1330 COMMENT: There is increased opacification over the right lower lobe compared to the previous study of 04/11/2017. There may be a small amount of pleural fluid on the right. IMPRESSION: Atelectasis versus pneumonia right lower lobe. right pleural effusion. Electronically signed by Too Rios 04/14/2017 1:37 PM
[2017-04-14 14:27] LABS: AGAP 9; ALBUMIN 3.1 g/dL (3.5-5.0); ALKALINE PHOSPHATASE 69 U/L (32-122); BUN 8 mg/dL (8-22); CALCIUM 9.2 mg/dL (8.8-10.2); CHLORIDE 94 mmol/L (98-107); COSMO 278; GOT 17 U/L (10-34); GPT 6 U/L (10-44); POTASSIUM 3.5 mmol/L (3.5-5.1); SODIUM 139 mmol/L (136-145); TCO2 36 mmol/L (25-35); TOTAL BILIRUBIN 0.59 mg/dL (0.20-1.00); TOTAL PROTEIN 6.8 g/dL (6.3-8.3)
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
[2017-04-14] MEDS: KLOR-CON PO SCH (16:27)
[2017-04-14] MEDS: DESYREL PO SCH (20:58)
[2017-04-14] MEDS: VOLTAREN 1% GEL TOP PRN (21:05)
[2017-04-15] MEDS: NORCO-7.5 PO PRN ×3 (05:06→18:34)
[2017-04-15] MEDS: NS 1,000 ML IV SCH (06:49)
[2017-04-15] MEDS: BUSPAR PO SCH ×2 (08:35→20:41)
[2017-04-15] MEDS: JANUVIA PO SCH (08:36)
[2017-04-15] MEDS: KLOR-CON PO SCH (08:36)
[2017-04-15] MEDS: GLUCOTROL XL PO SCH (08:36)
[2017-04-15] MEDS: PERICOLACE PO SCH ×2 (08:37→20:41)
[2017-04-15] MEDS: VITAMIN B-12 SL SCH (08:37)
[2017-04-15] MEDS: INDERAL LA PO SCH (08:37)
[2017-04-15] MEDS: VITAMIN D PO SCH (08:38)
[2017-04-15] MEDS: CULTURELLE PO SCH (08:38)
[2017-04-15] MEDS: ZYLOPRIM PO SCH (08:38)
[2017-04-15] MEDS: FLOMAX PO SCH ×2 (08:39→20:42)
[2017-04-15] MEDS: PRINIVIL PO SCH (08:39)
[2017-04-15] MEDS: NEURONTIN PO SCH ×3 (08:39→20:42)
[2017-04-15] MEDS: MUCINEX PO SCH ×2 (08:39→20:42)
[2017-04-15] MEDS: DITROPAN PO SCH ×2 (08:39→20:41)
[2017-04-15] MEDS: TYLENOL PO SCH (08:39)
[2017-04-15] MEDS: MIRALAX PO SCH (08:40)
[2017-04-15] MEDS: LASIX IV SCH ×2 (08:40→20:42)
[2017-04-15] MEDS: CLARITIN PO SCH (08:40)
[2017-04-15] MEDS: COLACE PO SCH (08:40)
[2017-04-15] MEDS: EUCERIN CREAM TOP SCH ×2 (08:43→21:01)
[2017-04-15] MEDS: LOTRIMIN 1% CREAM TOP SCH ×2 (08:43→20:58)
[2017-04-15] MEDS: FLONASE NAS SCH ×2 (08:44→20:48)
[2017-04-15 09:03] LABS: MANUAL DIFF NEEDED? NO
[2017-04-15 09:10] LABS: BASO% 0.4 % (0.0-0.8); EOS# 0.29 X1000 (0.0-0.7); EOS% 3.7 % (0.0-10.0); HEMOGLOBIN 11.4 g/dL (14.0-18.0); LYMPH# 1.13 X1000 (1.2-3.4); LYMPH% 14.3 % (20.5-51.1); MCH 26.5 PG (27-31); MCV 88.2 FL (81-99); MONO% 8.9 % (1.7-9.3); MPV 9.5 FL (7.4-10.4); NEUT% 72.7 % (42.2-75.2); PLT 240 X1000 (130-400); RBC 4.31 XMIL (4.7-6.1)
[2017-04-15 10:20] LABS: AGAP 9; BUN 7 mg/dL (8-22); CALCIUM 9.5 mg/dL (8.8-10.2); CHLORIDE 95 mmol/L (98-107); COSMO 278; POTASSIUM 3.9 mmol/L (3.5-5.1); SODIUM 139 mmol/L (136-145); TCO2 35 mmol/L (25-35)
[2017-04-15] MEDS: ZOFRAN IV PRN ×2 (11:26→18:55)
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
[2017-04-15] MEDS: DESYREL PO SCH (20:42)
[2017-04-15] MEDS: VOLTAREN 1% GEL TOP PRN (20:54)
[2017-04-15] MEDS: POLYSPORIN OINTMENT TOP PRN (21:02)
[2017-04-16] MEDS: NORCO-7.5 PO PRN ×2 (00:28→06:43)
[2017-04-16] MEDS: ZOFRAN IV PRN ×3 (00:30→12:46)
[2017-04-16] MEDS: NS 1,000 ML IV SCH (06:16)
[2017-04-16 07:04] LABS: MANUAL DIFF NEEDED? NO
[2017-04-16 07:14] LABS: BASO% 0.6 % (0.0-0.8); EOS# 0.29 X1000 (0.0-0.7); EOS% 4.2 % (0.0-10.0); HEMATOCRIT 36.4 % (42.0-52.0); HEMOGLOBIN 11.2 g/dL (14.0-18.0); LYMPH# 1.13 X1000 (1.2-3.4); LYMPH% 16.5 % (20.5-51.1); MCH 26.9 PG (27-31); MCHC 30.8 g/dL (33-37); MCV 87.5 FL (81-99); MONO# 0.63 X1000 (0.11-0.59); MONO% 9.2 % (1.7-9.3); MPV 9.6 FL (7.4-10.4); NEUT% 69.5 % (42.2-75.2); PLT 245 X1000 (130-400); RBC 4.16 XMIL (4.7-6.1)
[2017-04-16 07:38] LABS: AGAP 9; BUN 9 mg/dL (8-22); CALCIUM 9.5 mg/dL (8.8-10.2); CHLORIDE 97 mmol/L (98-107); COSMO 280; POTASSIUM 3.8 mmol/L (3.5-5.1); SODIUM 141 mmol/L (136-145); TCO2 35 mmol/L (25-35)
[2017-04-16] MEDS: FLONASE NAS SCH ×2 (09:04→21:07)
[2017-04-16] MEDS: KLOR-CON PO SCH (09:05)
[2017-04-16] MEDS: ZYLOPRIM PO SCH (09:05)
[2017-04-16] MEDS: GLUCOTROL XL PO SCH (09:05)
[2017-04-16] MEDS: MUCINEX PO SCH ×2 (09:05→21:02)
[2017-04-16] MEDS: DITROPAN PO SCH ×2 (09:05→21:00)
[2017-04-16] MEDS: PERICOLACE PO SCH ×2 (09:06→21:02)
[2017-04-16] MEDS: TYLENOL PO SCH (09:06)
[2017-04-16] MEDS: COLACE PO SCH (09:07)
[2017-04-16] MEDS: NEURONTIN PO SCH ×3 (09:07→21:01)
[2017-04-16] MEDS: FLOMAX PO SCH ×2 (09:07→21:02)
[2017-04-16] MEDS: BUSPAR PO SCH ×2 (09:07→21:01)
[2017-04-16] MEDS: JANUVIA PO SCH (09:07)
[2017-04-16] MEDS: PRINIVIL PO SCH (09:07)
[2017-04-16] MEDS: CLARITIN PO SCH (09:07)
[2017-04-16] MEDS: VITAMIN D PO SCH (09:08)
[2017-04-16] MEDS: INDERAL LA PO SCH (09:08)
[2017-04-16] MEDS: CULTURELLE PO SCH (09:08)
[2017-04-16] MEDS: EUCERIN CREAM TOP SCH ×2 (09:09→21:07)
[2017-04-16] MEDS: LASIX IV SCH ×2 (09:10→21:00)
[2017-04-16] MEDS: LOTRIMIN 1% CREAM TOP SCH ×2 (09:10→21:08)
[2017-04-16] MEDS: MIRALAX PO SCH (09:10)
[2017-04-16] MEDS: VITAMIN B-12 SL SCH (09:11)
[2017-04-16] MEDS: ULTRAM PO PRN (12:45)
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
[2017-04-16] MEDS: TYLENOL PO PRN (15:53)
[2017-04-16] MEDS: SUBOXONE 8 MG/2 MG SL SCH (21:02)
[2017-04-16] MEDS: DESYREL PO SCH (21:02)
[2017-04-17] MEDS: NS 1,000 ML IV SCH (04:41)
[2017-04-17 05:56] VITALS: BP 160/82
[2017-04-17] MEDS: APRESOLINE PO SCH ×2 (09:39→14:24)
[2017-04-17] MEDS: CLARITIN PO SCH (09:39)
[2017-04-17] MEDS: PERICOLACE PO SCH (09:40)
[2017-04-17] MEDS: MUCINEX PO SCH (09:40)
[2017-04-17] MEDS: LASIX IV SCH (09:40)
[2017-04-17] MEDS: PRINIVIL PO SCH (09:40)
[2017-04-17] MEDS: CULTURELLE PO SCH (09:40)
[2017-04-17] MEDS: TYLENOL PO SCH (09:40)
[2017-04-17] MEDS: DITROPAN PO SCH (09:40)
[2017-04-17] MEDS: COLACE PO SCH (09:40)
[2017-04-17] MEDS: INDERAL LA PO SCH (09:40)
[2017-04-17] MEDS: VITAMIN D PO SCH (09:40)
[2017-04-17] MEDS: ZYLOPRIM PO SCH (09:41)
[2017-04-17] MEDS: VITAMIN B-12 SL SCH (09:41)
[2017-04-17] MEDS: BUSPAR PO SCH (09:41)
[2017-04-17] MEDS: KLOR-CON PO SCH (09:41)
[2017-04-17] MEDS: GLUCOTROL XL PO SCH (09:41)
[2017-04-17] MEDS: FLOMAX PO SCH (09:41)
[2017-04-17] MEDS: MIRALAX PO SCH (09:41)
[2017-04-17] MEDS: JANUVIA PO SCH (09:41)
[2017-04-17] MEDS: NEURONTIN PO SCH ×2 (09:41→14:24)
[2017-04-17] MEDS: EUCERIN CREAM TOP SCH (09:42)
[2017-04-17] MEDS: LOTRIMIN 1% CREAM TOP SCH (09:42)
[2017-04-17] MEDS: FLONASE NAS SCH (09:42)
[2017-04-17] MEDS: SUBOXONE 8 MG/2 MG SL SCH (09:43)
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
== END 2017-04-17 15:29 ==
LOC: ED 15:04 → ICU 18:39 → SUATTDRO 18:39 → 3N 04-11 02:56
PROVIDERS: ATTEND Internal Medicine

== ENCOUNTER 2019-08-30 19:43 | Inpatient (IN) ==
--- NOTE | 2019-08-30 20:31 | Diag Imaging Result Doc PS360 ---
EXAM: CHEST-PORTABLE - 08/30/2019 HISTORY: AMS TECHNIQUE: Portable chest COMPARISON: 04/14/2017 FINDINGS: There is stable cardiomegaly. Inspiration is mildly shallow, with mild subsegmental atelectasis at the lung bases. Lungs otherwise appear clear. There is no pleural effusion or pneumothorax identified. IMPRESSION: Stable cardiomegaly. Mildly shallow inspiration, with mild basilar subsegmental atelectasis. Electronically signed by Jose Gonzalez 08/30/2019 8:29 PM
[2019-08-30 20:34] LABS: ALLEN TEST YES; BLOOD TYPE ARTERIAL; HCO3-(ACT) 26.4 mmoll (20.0-26.0); METHB 1.4 % (0.0-1.5); O2(CT) 17.5 mL/dL (15.0-23.0); O2HB 92.6 % (95.0-99.0); PCO2(98.6) 44 mmHg (35-45); PO2(98.6) 71 mmHg (60-100); SAMPLE BLOOD; SAO2 95.7 % (95.0-100.0); THB 13.4 g/dL (11.5-17.4)
[2019-08-30 20:36] LABS: MODALITY CANNULA
[2019-08-30] MEDS ORDERED: NS 1,000 ML IV ONE ×2 (20:56→23:48)
[2019-08-30] MEDS ORDERED: MERREM 1 GM in NS 50 ML IV ONE (20:56)
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
[2019-08-30 21:33] LABS: BASO# 0.02 X1000 (0.0-0.2); BASO% 0.2 % (0.0-0.8); EOS# 0.02 X1000 (0.0-0.7); EOS% 0.2 % (0.0-10.0); HEMATOCRIT 40.1 % (42.0-52.0); IMM GRAN# 0.03 X1000 (0.0-0.04); IMM GRAN% 0.3 % (0.0-0.5); LYMPH# 1.02 X1000 (1.2-3.4); LYMPH% 8.5 % (20.5-51.1); MCHC 32.4 g/dL (33-37); MCV 92.6 FL (81-99); MONO% 6.7 % (1.7-9.3); MPV 9.7 FL (7.4-10.4); NEUT# 10.08 X1000 (1.4-6.5); NEUT% 84.1 % (42.2-75.2); PLT 239 X1000 (130-400); RBC 4.33 XMIL (4.7-6.1); RDW 14.3 % (11.5-14.5); WBC 11.97 X1000 (4.8-10.8)
[2019-08-30 22:15] LABS: ACETAMINOPHEN < 1.2 ug/mL (10-30); AGAP 16; ALBUMIN 3.8 g/dL (3.5-5.0); ALKALINE PHOSPHATASE 85 U/L (32-122); BUN 37 mg/dL (8-22); CALCIUM 9.1 mg/dL (8.8-10.2); CHLORIDE 95 mmol/L (98-107); CK TOTAL 44 U/L (24-204); COSMO 286; CREATININE 2.1 mg/dL (0.7-1.2); ESTIMATED GFR 32; GLUCOSE 253 mg/dL (70-104); GOT 10 U/L (10-34); GPT 6 U/L (10-44); POTASSIUM 5.6 mmol/L (3.5-5.1); SALICYLATES < 3.00 mg/dL (3-10); SODIUM 134 mmol/L (136-145); TCO2 23 mmol/L (25-35); TOTAL PROTEIN 7.5 g/dL (6.3-8.3)
[2019-08-30 22:33] LABS: URINE SOURCE CATH
[2019-08-30 23:30] LABS: BILIRUBIN URINE NEGATIVE (NEGATIVE); BLOOD URINE MODERATE (NEGATIVE); COLOR YELLOW; GLUCOSE URINE NEGATIVE (NEGATIVE); KETONE URINE NEGATIVE (NEGATIVE); LEUKOCYTES URINE LARGE (NEGATIVE); NITRITE URINE NEGATIVE (NEGATIVE); PH URINE 5.5; PROTEIN URINE 30 mg/dL (NEGATIVE); SP GRAVITY URINE 1.013; TURBIDITY URINE TURBID (CLEAR); UROBILINOGEN URINE 2 mg/dL (NORMAL)
[2019-08-30 23:32] LABS: UR EPITHELIAL CELLS <10 /HPF (<10); URINE BACTERIA 4+ /HPF; URINE RBC <10 /HPF (<10); URINE WBC TNTC /HPF (<10)
[2019-08-30 23:43] LABS: UR AMPHETAMINES QUAL NONE DETECTED (NONE DETECT); UR BARBITUATES QUAL NONE DETECTED (NONE DETECT); UR BENZODIAZEPIN QUAL NONE DETECTED (NONE DETECT); UR CANNABINOIDS QUAL NONE DETECTED (NONE DETECT); UR COCAINE QUAL NONE DETECTED (NONE DETECT); UR METHADONE QUAL NONE DETECTED (NONE DETECT); UR OPIATES QUAL NONE DETECTED (NONE DETECT); UR OXYCODONE QUAL NONE DETECTED (NONE DETECT); UR PCP QUAL NONE DETECTED (NONE DETECT)
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
[2019-08-31] MEDS ORDERED: HUMALOG IV ONE (00:32)
[2019-08-31] MEDS: D50W SYRINGE IV ONE ×2 (00:32→04:08)
[2019-08-31] MEDS ORDERED: TYLENOL PO PRN (02:12)
[2019-08-31] MEDS ORDERED: NITROGLYCERIN SL PRN (02:12)
[2019-08-31] MEDS ORDERED: ZOFRAN IV PRN (02:12)
[2019-08-31] MEDS: NS 1,000 ML IV SCH ×3 (02:42→18:55)
[2019-08-31] MEDS: TYLENOL PO SCH ×2 (03:07→22:41)
[2019-08-31] MEDS: LOVENOX SUBQ SCH (03:07)
[2019-08-31] MEDS: MAXIPIME 1 GM in NS 50 ML IV SCH ×2 (03:08→14:45)
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
[2019-08-31] MEDS: HUMALOG SUBQ SCH ×4 (06:32→22:42)
--- NOTE | 2019-08-31 06:32 | Diag Imaging Result Doc PS360 ---
CT ABDOMEN/PELVIS W/O CONTRAST - 08/30/2019 INDICATION: AMS, leukocytosis COMPARISON: 10/23/2018 FINDINGS: The lung bases are clear and the heart size is normal. There is moderate patient motion artifact. No radiodense renal stones. No hydronephrosis or hydroureter. There are cholecystectomy clips. There are splenic granulomas. Otherwise abdominal organs remain normal. There is severe diffuse constipation with mild rectal stool impaction. No bowel obstruction or inflammation. Normal appendix. Briones catheter in the urinary bladder. There are advanced degenerative changes of the spine. No acute or suspicious bony lesion. IMPRESSION: Severe constipation. This exam was performed using automated exposure control, adjustment of mA or kV according to patient size, and/or use of iterative reconstruction technique Electronically signed by Vinh Murillo 08/31/2019 6:30 AM
[2019-08-31] MEDS: APRESOLINE PO SCH ×3 (08:11→22:41)
[2019-08-31] MEDS: ASPIRIN EC PO SCH (08:22)
[2019-08-31] MEDS: AVODART PO SCH (08:22)
[2019-08-31] MEDS: FLOMAX PO SCH ×2 (08:22→22:41)
[2019-08-31] MEDS: SUBOXONE 8 MG/2 MG SL SCH ×2 (08:22→22:40)
[2019-08-31] MEDS: COLACE PO SCH ×2 (08:22→22:39)
[2019-08-31] MEDS: MIRALAX PO SCH ×2 (08:23→22:42)
[2019-08-31] MEDS: LANTUS INSULIN SUBQ SCH (08:23)
[2019-08-31] MEDS: PRILOSEC PO SCH (08:23)
[2019-08-31] MEDS: DULCOLAX PR SCH ×2 (08:29→22:42)
[2019-08-31 08:38] LABS: CALCIUM 8.6 mg/dL (8.8-10.2); CREATININE 1.7 mg/dL (0.7-1.2); POTASSIUM 4.9 mmol/L (3.5-5.1)
[2019-08-31] MEDS ORDERED: MIRALAX PO SCH (09:00)
[2019-08-31] MEDS: INDERAL LA PO SCH (09:42)
[2019-08-31] MEDS: ULTRAM PO PRN ×2 (11:10→18:55)
[2019-08-31 11:48] LABS: FREE T4 1.06 ng/dL (0.93-1.70); TSH 0.65 uIUmL (0.27-4.20)
[2019-08-31] MEDS: DEPAKOTE ER PO SCH (22:40)
[2019-09-01] MEDS: MAXIPIME 1 GM in NS 50 ML IV SCH ×2 (01:28→16:08)
[2019-09-01] MEDS: LOVENOX SUBQ SCH (01:29)
[2019-09-01] MEDS: ULTRAM PO PRN ×2 (01:52→12:51)
[2019-09-01] MEDS: NS 1,000 ML IV SCH (03:12)
[2019-09-01] MEDS: SYNTHROID PO SCH (06:18)
[2019-09-01] MEDS: LINZESS PO SCH (06:18)
[2019-09-01] MEDS: HUMALOG SUBQ SCH ×4 (06:25→21:05)
[2019-09-01 07:30] LABS: BASO# 0.02 X1000 (0.0-0.2); BASO% 0.3 % (0.0-0.8); EOS# 0.12 X1000 (0.0-0.7); EOS% 1.9 % (0.0-10.0); HEMATOCRIT 33.5 % (42.0-52.0); HEMOGLOBIN 10.7 g/dL (14.0-18.0); LYMPH# 1.03 X1000 (1.2-3.4); LYMPH% 16.6 % (20.5-51.1); MCH 29.6 PG (27-31); MCHC 31.9 g/dL (33-37); MCV 92.8 FL (81-99); MONO# 0.46 X1000 (0.11-0.59); MONO% 7.4 % (1.7-9.3); MPV 9.7 FL (7.4-10.4); NEUT# 4.59 X1000 (1.4-6.5); NEUT% 73.8 % (42.2-75.2); PLT 216 X1000 (130-400); RBC 3.61 XMIL (4.7-6.1); RDW 14.1 % (11.5-14.5); WBC 6.22 X1000 (4.8-10.8)
[2019-09-01] MEDS: PRILOSEC PO SCH (08:12)
[2019-09-01] MEDS: DEPAKOTE ER PO SCH ×2 (08:12→21:03)
[2019-09-01] MEDS: APRESOLINE PO SCH ×3 (08:12→21:03)
[2019-09-01] MEDS: DULCOLAX PR SCH ×2 (08:13→21:05)
[2019-09-01] MEDS: FLOMAX PO SCH ×2 (08:13→21:03)
[2019-09-01] MEDS: COLACE PO SCH ×2 (08:13→21:05)
[2019-09-01] MEDS: ASPIRIN EC PO SCH (08:13)
[2019-09-01] MEDS: AVODART PO SCH (08:13)
[2019-09-01] MEDS: INDERAL LA PO SCH (08:13)
[2019-09-01] MEDS: MIRALAX PO SCH ×2 (08:13→21:05)
[2019-09-01] MEDS: SUBOXONE 8 MG/2 MG SL SCH ×2 (08:14→21:03)
[2019-09-01] MEDS: LANTUS INSULIN SUBQ SCH (08:14)
[2019-09-01 08:24] LABS: AGAP 8; ALB/GLOB RATIO 0.8; ALBUMIN 3.1 g/dL (3.5-5.0); ALKALINE PHOSPHATASE 67 U/L (32-122); BUN 18 mg/dL (8-22); CALCIUM 8.6 mg/dL (8.8-10.2); CHLORIDE 100 mmol/L (98-107); COSMO 279; CREATININE 1.1 mg/dL (0.7-1.2); ESTIMATED GFR > 60; GLUCOSE 183 mg/dL (70-104); GOT 11 U/L (10-34); GPT 6 U/L (10-44); POTASSIUM 4.4 mmol/L (3.5-5.1); SODIUM 136 mmol/L (136-145); TCO2 28 mmol/L (25-35); TOTAL BILIRUBIN 0.38 mg/dL (0.20-1.00); TOTAL PROTEIN 6.8 g/dL (6.3-8.3)
[2019-09-01] MEDS ORDERED: MAGNESIUM SULFATE 2 GM/S.W.I. 2 GM/50 ML IVPB IV ONE (08:45)
[2019-09-01] MEDS ORDERED: ATIVAN IV ONE (12:18)
--- NOTE | 2019-09-01 15:35 | PROGRESS NOTE ---
DATE: 09/01/2019 SUBJECTIVE: The patient is resting comfortably in bed. He states he wants to go home. OBJECTIVE: Vital Signs: Temperature 98 degrees, blood pressure 148/70, heart rate 84, respirations 20, O2 saturation 99% on room air. General: This is an overweight male, lying in bed in no acute distress. Heart: S1, S2 normal. Regular rate and rhythm. Lungs: Equal air entry bilaterally. No wheezing. No rales. Abdomen: Positive bowel sounds. Soft, nontender, nondistended. Extremities: No edema, no cyanosis. Neurologic: The patient is legally blind. He is able to move all 4 extremities. LABS: White blood cell count 6.2, hemoglobin 10, hematocrit 33, platelets 216. Sodium 136, BUN 18, creatinine 1.1 glucose 183, albumin 3.1. ASSESSMENT AND PLAN: 1. Metabolic encephalopathy. Improved. The patient appears to be back to his baseline. 2. Urinary tract infection. The urine culture is growing gram-negative rods. Continue with antibiotic therapy. We will await the final culture results. 3. Chronic pain. The patient is on Suboxone. 4. Hypertension. Continue on the current antihypertensive regimen. 5. Morbid obesity. Aware. 6. Hypothyroidism. Continue on Synthroid. 7. Diabetes mellitus type 2. Continue on Lantus and sliding scale insulin. 8. Deep vein thrombosis prophylaxis. Continue on Lovenox. DISPOSITION: The patient should be able to be discharged back to [facility] once the urine culture results are available. cc: Daniela Sandoval MD
[2019-09-01] MEDS: TYLENOL PO SCH (21:03)
[2019-09-02] MEDS ORDERED: APRESOLINE IV PRN (00:20)
[2019-09-02] MEDS ORDERED: APRESOLINE IV ONE (00:20)
[2019-09-02] MEDS: LOVENOX SUBQ SCH (02:00)
[2019-09-02] MEDS: MAXIPIME 1 GM in NS 50 ML IV SCH ×2 (02:29→13:55)
[2019-09-02] MEDS: ULTRAM PO PRN ×2 (02:35→10:41)
[2019-09-02] MEDS: LINZESS PO SCH (06:00)
[2019-09-02] MEDS: SYNTHROID PO SCH (06:00)
--- NOTE | 2019-09-02 07:01 | EKG Report ---
Test Performed on : 08/30/2019 8:11:15 PM Test Reason : AMS Blood Pressure : / mmHG Vent. Rate : 068 BPM Atrial Rate : 068 BPM P-R Int : 152 ms QRS Dur : 082 ms QT Int : 390 ms P-R-T Axes : 068 024 023 degrees QTc Int : 414 ms Normal sinus rhythm. Normal ECG When compared with ECG of 09-APR-2017 06:36, No significant change was found Unconfirmed Result
[2019-09-02] MEDS: HUMALOG SUBQ SCH ×3 (07:11→16:14)
[2019-09-02 07:18] LABS: HEMATOCRIT 36.1 % (42.0-52.0); HEMOGLOBIN 11.8 g/dL (14.0-18.0); MCH 30.1 PG (27-31); MCHC 32.7 g/dL (33-37); MCV 92.1 FL (81-99); MPV 9.2 FL (7.4-10.4); RBC 3.92 XMIL (4.7-6.1); RDW 14.1 % (11.5-14.5); WBC 7.66 X1000 (4.8-10.8)
[2019-09-02 07:47] LABS: AGAP 13; BUN 9 mg/dL (8-22); CALCIUM 9.1 mg/dL (8.8-10.2); CHLORIDE 98 mmol/L (98-107); COSMO 273; CREATININE 0.9 mg/dL (0.7-1.2); ESTIMATED GFR > 60; GLUCOSE 166 mg/dL (70-104); POTASSIUM 4.3 mmol/L (3.5-5.1); SODIUM 135 mmol/L (136-145); TCO2 24 mmol/L (25-35)
[2019-09-02] MEDS: SUBOXONE 8 MG/2 MG SL SCH ×2 (07:57→08:06)
[2019-09-02] MEDS: AVODART PO SCH ×2 (07:57→08:03)
[2019-09-02] MEDS: ASPIRIN EC PO SCH ×2 (07:57→08:03)
[2019-09-02] MEDS: APRESOLINE PO SCH ×2 (07:57→13:59)
[2019-09-02] MEDS: PRILOSEC PO SCH ×2 (07:57→08:06)
[2019-09-02] MEDS: INDERAL LA PO SCH ×2 (07:58→08:03)
[2019-09-02] MEDS: COLACE PO SCH ×2 (07:58→08:03)
[2019-09-02] MEDS: FLOMAX PO SCH ×2 (07:58→08:03)
[2019-09-02] MEDS: DEPAKOTE ER PO SCH ×2 (07:58→08:03)
[2019-09-02] MEDS: DULCOLAX PR SCH (08:03)
[2019-09-02] MEDS: LANTUS INSULIN SUBQ SCH (08:04)
[2019-09-02] MEDS: MIRALAX PO SCH (08:06)
--- NOTE | 2019-09-02 13:06 | DISCHARGE SUMMARY ---
ADMISSION DATE: 08/31/2019 DISCHARGE DATE: 09/02/2019 FINAL DISCHARGE DIAGNOSES: 1. Metabolic encephalopathy. 2. Urinary tract infection secondary to Escherichia coli. 3. Chronic pain syndrome. 4. Hypertension. 5. Morbid obesity. 6. Hypothyroidism. 7. Diabetes mellitus type 2. 8. Hyperlipidemia. 9. Legally blind. 10. Chronic constipation. 11. Situational depression. 12. Gout. 13. Benign prostatic hypertrophy. HOSPITAL COURSE: Mr. No is a 64-year-old male with a history of multiple medical problems who was sent to the ER with 2 days of confusion. Upon arrival to the ER, the patient was noted to have a urinary tract infection. The patient was admitted to the hospitalist service and fluids were started as well as antibiotic therapy. The blood cultures were noted to be negative. However, the urine culture grew out Escherichia coli that was noted to be pansensitive. With the initiation of antibiotics and IV fluids, the patient's mental status returned to baseline. At this time, the patient is medically stable for discharge to rehab. On the day of discharge, the patient was noted to have a white blood cell count 7.6, BUN of 9, creatinine of 0.9, a sodium of 135. DISCHARGE MEDICATIONS: 1. Levaquin 500 mg oral daily x5 days. 2. Colace 100 mg oral twice a day. 3. Flomax 0.4 mg oral at bedtime. 4. Allopurinol 300 mg oral daily. 5. Lasix 40 mg p.o. daily. 6. Vitamin D3 2000 units oral daily. 7. Inderal LA 120 mg oral daily. 8. MiraLAX 17 g oral daily. 9. Vitamin B12 2500 mcg sublingual daily. 10. Nitroglycerin 0.4 mg sublingual every 5 minutes p.r.n. 11. Hydralazine 25 mg oral 3 times a day. 12. Ditropan 2.5 mg oral twice a day. 13. Suboxone 1 sublingual twice a day. 14. Aspirin 325 mg oral daily. 15. Celebrex 200 mg oral daily. 16. Depakote ER 250 mg oral twice a day. 17. Lantus 10 units subcutaneous daily. 18. Synthroid 50 mcg oral daily. 19. Melatonin 2 capsules oral at bedtime. 20. Prilosec 20 mg oral daily. 21. Geodon 20 mg oral twice a day. 22. Avodart 0.5 mg oral daily. 23. Linzess 145 mcg oral daily. 24. Requip 0.5 mg oral at bedtime. 25. Januvia 50 mg oral daily. 26. Trazodone 125 mg oral at bedtime. 27. Lyrica 50 mg oral twice a day. 28. BuSpar 15 mg oral twice a day. 29. Acetaminophen 650 mg oral at bedtime p.r.n. for pain. DISCHARGE DIET: 1800 ADA diet low-sodium diet. ACTIVITY: As tolerated. FOLLOWUP INSTRUCTIONS: The patient will need to follow up with Dr. Corona in 2 weeks. cc: Daniela Sandoval MD
[2019-09-02] MEDS ORDERED: CATAPRES PO ONE (15:14)
[2019-09-02 16:21] VITALS: BP 159/71
== END 2019-09-02 16:40 | DRG 682 ==
LOC: SUPCPDRO → ED 19:43 → SUATTDRO 08-31 01:45 → 3N 08-31 01:45
PROVIDERS: ATTEND Internal Medicine

== ENCOUNTER 2019-10-09 09:08 | Inpatient (IN) ==
[2019-10-09] MEDS ORDERED: NS 1,000 ML IV ONE ×3 (09:22→13:08)
[2019-10-09] MEDS ORDERED: ZOSYN 4.5 GM in NS 100 ML IV ONE (09:22)
--- NOTE | 2019-10-09 10:07 | Diag Imaging Result Doc PS360 ---
EXAM: CHEST-1 VIEW INDICATION: short of breath post CPR TECHNIQUE: One view COMPARISON: 08/30/2019 FINDINGS: Inspiration is somewhat suboptimal. The lungs are grossly clear. There is no discrete pleural fluid collection or pneumothorax. Cardiac silhouette is mildly prominent but stable, possibly due to magnification from AP technique. Central vasculature is unremarkable. IMPRESSION: Essentially stable chest with no definite acute pathology by plain radiograph. Electronically signed by Kevin Etienne 10/09/2019 10:04 AM
[2019-10-09 10:12] LABS: BASO# 0.03 X1000 (0.0-0.2); BASO% 0.3 % (0.0-0.8); EOS# 0.15 X1000 (0.0-0.7); EOS% 1.3 % (0.0-10.0); HEMATOCRIT 45.2 % (42.0-52.0); IMM GRAN# 0.05 X1000 (0.0-0.04); IMM GRAN% 0.4 % (0.0-0.5); LYMPH% 10.1 % (20.5-51.1); MCH 29.9 PG (27-31); MCHC 33.2 g/dL (33-37); MCV 90.2 FL (81-99); MONO# 0.45 X1000 (0.11-0.59); MONO% 3.8 % (1.7-9.3); MPV 9.7 FL (7.4-10.4); NEUT# 10.02 X1000 (1.4-6.5); NEUT% 84.1 % (42.2-75.2); PLT 267 X1000 (130-400); RBC 5.01 XMIL (4.7-6.1); RDW 13.7 % (11.5-14.5)
[2019-10-09 10:13] LABS: INR 1.21; PROTIME 15.5 Seconds (11.0-16.0)
[2019-10-09 10:14] LABS: PTT 35.7 Seconds (22.3-41.8)
[2019-10-09 10:17] LABS: ALLEN TEST YES; BE -0.8 mmoll (-3.0-3.0); BLOOD TYPE ARTERIAL; HCO3-(ACT) 24.2 mmoll (20.0-26.0); METHB 1.6 % (0.0-1.5); MODALITY CANNULA; O2(CT) 20.8 mL/dL (15.0-23.0); O2HB 94.6 % (95.0-99.0); PCO2(98.6) 37 mmHg (35-45); PO2(98.6) 107 mmHg (60-100); SAMPLE BLOOD; SAO2 98.7 % (95.0-100.0); THB 15.6 g/dL (11.5-17.4); pH(98.6) 7.41 (7.35-7.45)
[2019-10-09 10:32] LABS: ALB/GLOB RATIO 0.9; ALBUMIN 3.3 g/dL (3.5-5.0); CREATININE 1.3 mg/dL (0.7-1.2); MAGNESIUM 1.5 mg/dL (1.5-2.7); POTASSIUM 5.2 mmol/L (3.5-5.1); TOTAL BILIRUBIN 0.65 mg/dL (0.20-1.00); TOTAL PROTEIN 6.8 g/dL (6.3-8.3)
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
--- NOTE | 2019-10-09 12:47 | Diag Imaging Result Doc PS360 ---
EXAM: CT ABDOMEN/PELVIS W/O CONTRAST INDICATION: INFECTIOUS GASTROENTERITIS TECHNIQUE: This exam was performed using automated exposure control, adjustment of mA or kV according to patient size, and/or use of iterative reconstruction technique. COMPARISON: 08/30/2019 FINDINGS: There is mild subsegmental atelectasis at the lung bases. There are multiple calcified granulomata throughout the spleen and a few in the liver. The spleen and liver are unremarkable, otherwise. There has been a prior cholecystectomy. There is stable pancreatic atrophy. It is unremarkable, otherwise. The adrenal glands appear normal. There is stable mild chronic perinephric stranding that is symmetric. The kidneys are unremarkable, otherwise. The urinary bladder is nondistended and is unremarkable, otherwise. There is wall thickening and surrounding inflammatory stranding associated with the that extends through the descending and sigmoid colon and involves the rectum indicating nonspecific colitis and proctitis. Consider infectious and inflammatory etiologies. There is a moderate to large amount of retained fecal material in the colon and rectum. The ascending and transverse colon are moderately distended. There is no obstructive bowel pattern. There is no evidence of small bowel distention or wall thickening. The stomach is unremarkable. There is trace free fluid in the paracolic gutter on the right. No free abdominal gas or pneumatosis is appreciated. There is no evidence of acute osseous abnormality. IMPRESSION: 1.Thickening and inflammatory stranding extending from the splenic flexure through the rectum indicating colitis and proctitis. Consider infectious and inflammatory etiologies. 2.Moderate to large amount of retained fecal material in the colon and rectum. Electronically signed by Kevin Etienne 10/09/2019 12:44 PM
[2019-10-09] MEDS ORDERED: NS 500 ML IV ONE (13:08)
[2019-10-09] MEDS ORDERED: VANCOMYCIN 1 GM/NS 1 GM/250 ML IVPB IV ONE ×2 (13:09→17:00)
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
[2019-10-09 14:29] LABS: URINE SOURCE CATH
[2019-10-09 14:33] LABS: BILIRUBIN URINE SMALL (NEGATIVE); BLOOD URINE NEGATIVE (NEGATIVE); COLOR ORANGE; GLUCOSE URINE TRACE mg/dL (NEGATIVE); KETONE URINE NEGATIVE (NEGATIVE); LEUKOCYTES URINE TRACE (NEGATIVE); NITRITE URINE NEGATIVE (NEGATIVE); PH URINE 5.5; PROTEIN URINE 30 mg/dL (NEGATIVE); SP GRAVITY URINE 1.021; TURBIDITY URINE TURBID (CLEAR); UR EPITHELIAL CELLS <10 /HPF (<10); URINE BACTERIA NEGATIVE /HPF; URINE RBC <10 /HPF (<10); URINE WBC <10 /HPF (<10); UROBILINOGEN URINE 4 mg/dL (NORMAL)
[2019-10-09] MEDS ORDERED: NITROGLYCERIN SL PRN (15:00)
[2019-10-09] MEDS ORDERED: PROTONIX IV SCH (15:00)
[2019-10-09] MEDS ORDERED: AFRIN NASAL SPRAY NAS PRN (15:00)
[2019-10-09] MEDS ORDERED: VANCOMYCIN IV PER PHARMACY MISC SCH (15:15)
[2019-10-09] MEDS ORDERED: FLAGYL 500 MG/NS 500 MG/100 ML IVPB IV SCH (15:15)
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
[2019-10-09] MEDS: HUMULIN R SUBQ SCH ×2 (17:50→21:00)
--- NOTE | 2019-10-09 17:54 | EKG Report ---
Test Performed on : 10/09/2019 09:44:32 AM Test Reason : post-resuscitation Blood Pressure : / mmHG Vent. Rate : 064 BPM Atrial Rate : 064 BPM P-R Int : 148 ms QRS Dur : 072 ms QT Int : 418 ms P-R-T Axes : 102 027 039 degrees QTc Int : 431 ms Normal sinus rhythm. Normal ECG When compared with ECG of 30-AUG-2019 20:11, (Unconfirmed) No significant change was found Unconfirmed Result
[2019-10-09] MEDS: NS 1,000 ML IV SCH ×2 (17:58→23:00)
[2019-10-09] MEDS: ZOSYN 3.375 GM in NS 50 ML IV SCH ×2 (18:02→22:54)
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
[2019-10-09] MEDS ORDERED: SUBOXONE 8 MG/2 MG SL SCH (21:00)
[2019-10-09] MEDS ORDERED: LYRICA PO SCH (21:00)
[2019-10-09] MEDS ORDERED: DESYREL PO SCH (21:00)
[2019-10-09] MEDS ORDERED: GEODON SCH (21:00)
[2019-10-09] MEDS ORDERED: BUSPAR PO SCH (21:00)
[2019-10-09] MEDS ORDERED: DITROPAN PO SCH (21:00)
[2019-10-09] MEDS: DESYREL PO SCH (22:54)
[2019-10-09] MEDS: DEPAKOTE ER PO SCH (22:54)
[2019-10-09] MEDS: MELATONIN PO SCH (22:54)
[2019-10-09] MEDS: REQUIP PO SCH (22:54)
[2019-10-09] MEDS: FLOMAX PO SCH (22:54)
[2019-10-10] MEDS: ZOSYN 3.375 GM in NS 50 ML IV SCH ×5 (04:30→21:33)
[2019-10-10] MEDS ORDERED: NS 50 ML ONE ×2 (04:56→05:00)
[2019-10-10 06:07] LABS: BASO# 0.02 X1000 (0.0-0.2); BASO% 0.1 % (0.0-0.8); HEMATOCRIT 38.2 % (42.0-52.0); HEMOGLOBIN 12.5 g/dL (14.0-18.0); IMM GRAN# 0.06 X1000 (0.0-0.04); IMM GRAN% 0.3 % (0.0-0.5); LYMPH# 1.19 X1000 (1.2-3.4); LYMPH% 5.4 % (20.5-51.1); MCH 29.5 PG (27-31); MCHC 32.7 g/dL (33-37); MCV 90.1 FL (81-99); MONO# 1.58 X1000 (0.11-0.59); MONO% 7.1 % (1.7-9.3); MPV 9.6 FL (7.4-10.4); NEUT% 87.1 % (42.2-75.2); PLT 215 X1000 (130-400); RBC 4.24 XMIL (4.7-6.1); RDW 13.7 % (11.5-14.5); WBC 22.15 X1000 (4.8-10.8)
[2019-10-10 06:32] LABS: ALB/GLOB RATIO 0.6; ALBUMIN 2.1 g/dL (3.5-5.0); CALCIUM 8.1 mg/dL (8.8-10.2); CREATININE 1.4 mg/dL (0.7-1.2); MAGNESIUM 1.5 mg/dL (1.5-2.7); TOTAL BILIRUBIN 0.55 mg/dL (0.20-1.00); TOTAL PROTEIN 5.8 g/dL (6.3-8.3)
[2019-10-10] MEDS: HUMULIN R SUBQ SCH ×4 (06:44→20:54)
[2019-10-10] MEDS: ZOFRAN IV PRN ×2 (07:59→15:45)
[2019-10-10] MEDS: PRILOSEC PO SCH (07:59)
[2019-10-10] MEDS: SYNTHROID PO SCH (07:59)
[2019-10-10] MEDS: TYLENOL PO PRN ×2 (07:59→18:17)
[2019-10-10 08:02] LABS: LYMPHS 9 % (21-51); MONO 6 % (1-9); SEGS 85 % (42-75)
[2019-10-10] MEDS ORDERED: AVODART PO SCH (09:00)
[2019-10-10] MEDS ORDERED: JANUVIA PO SCH (09:00)
[2019-10-10] MEDS ORDERED: VITAMIN D PO SCH (09:00)
[2019-10-10] MEDS: ASTELIN NASAL SPRAY NAS SCH (09:00)
[2019-10-10] MEDS ORDERED: CELECOXIB PO SCH (09:00)
[2019-10-10] MEDS ORDERED: PROPRANOLOL HCL PO SCH (09:00)
[2019-10-10] MEDS ORDERED: INSULIN GLARGINE HUM REC ANLOG 10 UNIT SQ SCH (09:00)
[2019-10-10] MEDS ORDERED: ASPIRIN EC PO SCH (09:00)
[2019-10-10] MEDS ORDERED: PRINIVIL PO SCH (09:00)
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
[2019-10-10] MEDS: NS 1,000 ML IV SCH ×2 (09:30→15:37)
[2019-10-10] MEDS: ASPIRIN EC PO SCH (09:30)
[2019-10-10] MEDS: VANCOCIN PO SCH ×4 (09:32→21:32)
[2019-10-10] MEDS: VITAMIN B-12 SL SCH (09:33)
[2019-10-10] MEDS: DEPAKOTE ER PO SCH ×2 (09:33→20:53)
[2019-10-10] MEDS: ZYLOPRIM PO SCH (09:33)
[2019-10-10] MEDS ORDERED: SUBOXONE 8 MG/2 MG SL ONE (09:45)
[2019-10-10] MEDS ORDERED: CALMOSEPTINE OINTMENT TOP PRN (14:21)
[2019-10-10] MEDS ORDERED: VANCOMYCIN 2 GM in NS 500 ML IV SCH (15:00)
[2019-10-10] MEDS: POLYSPORIN OINTMENT TOP SCH ×2 (15:16→20:30)
[2019-10-10] MEDS: LEVSIN-SL SL PRN (18:10)
[2019-10-10] MEDS: SUBOXONE 8 MG/2 MG SL SCH (20:27)
[2019-10-10] MEDS: FLOMAX PO SCH (20:28)
[2019-10-10] MEDS: REQUIP PO SCH (20:28)
[2019-10-10] MEDS: MELATONIN PO SCH (20:28)
[2019-10-10] MEDS: DESYREL PO SCH (20:28)
[2019-10-11] MEDS: NS 1,000 ML IV SCH (02:16)
[2019-10-11] MEDS: VANCOCIN PO SCH ×5 (04:49→21:50)
[2019-10-11] MEDS: ZOSYN 3.375 GM in NS 50 ML IV SCH ×5 (04:49→21:50)
[2019-10-11] MEDS: ZOFRAN IV PRN ×4 (05:58→21:56)
[2019-10-11] MEDS: PRILOSEC PO SCH (05:59)
[2019-10-11] MEDS: SYNTHROID PO SCH (05:59)
[2019-10-11] MEDS: HUMULIN R SUBQ SCH ×4 (06:00→20:04)
[2019-10-11 06:56] LABS: BASO# 0.02 X1000 (0.0-0.2); BASO% 0.1 % (0.0-0.8); EOS# 0.01 X1000 (0.0-0.7); EOS% 0.1 % (0.0-10.0); HEMATOCRIT 32.6 % (42.0-52.0); HEMOGLOBIN 10.6 g/dL (14.0-18.0); IMM GRAN# 0.04 X1000 (0.0-0.04); IMM GRAN% 0.2 % (0.0-0.5); LYMPH% 5.3 % (20.5-51.1); MCH 29.5 PG (27-31); MCHC 32.5 g/dL (33-37); MCV 90.8 FL (81-99); MONO# 1.08 X1000 (0.11-0.59); MONO% 6.3 % (1.7-9.3); MPV 9.6 FL (7.4-10.4); NEUT# 15.03 X1000 (1.4-6.5); PLT 200 X1000 (130-400); RBC 3.59 XMIL (4.7-6.1); RDW 13.8 % (11.5-14.5); WBC 17.08 X1000 (4.8-10.8)
[2019-10-11 07:26] LABS: AGAP 10; ALB/GLOB RATIO 0.6; ALBUMIN 2.2 g/dL (3.5-5.0); ALKALINE PHOSPHATASE 137 U/L (32-122); BUN 19 mg/dL (8-22); CHLORIDE 104 mmol/L (98-107); COSMO 278; CREATININE 1.1 mg/dL (0.7-1.2); ESTIMATED GFR > 60; GLUCOSE 140 mg/dL (70-104); GOT 15 U/L (10-34); GPT 5 U/L (10-44); MAGNESIUM 1.5 mg/dL (1.5-2.7); POTASSIUM 3.9 mmol/L (3.5-5.1); SODIUM 137 mmol/L (136-145); TCO2 23 mmol/L (25-35); TOTAL BILIRUBIN 0.48 mg/dL (0.20-1.00); TOTAL PROTEIN 5.9 g/dL (6.3-8.3)
[2019-10-11 07:49] LABS: BANDS 8 % (0-1); LYMPHS 4 % (21-51); MONO 2 % (1-9); SEGS 86 % (42-75)
[2019-10-11] MEDS: ZYLOPRIM PO SCH (10:45)
[2019-10-11] MEDS: ASPIRIN EC PO SCH (10:45)
[2019-10-11] MEDS: VITAMIN B-12 SL SCH (10:46)
[2019-10-11] MEDS: SUBOXONE 8 MG/2 MG SL SCH ×2 (10:46→20:02)
[2019-10-11] MEDS: DEPAKOTE ER PO SCH ×2 (10:48→20:02)
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
[2019-10-11] MEDS: TYLENOL PO PRN (14:01)
[2019-10-11] MEDS: APRESOLINE PO SCH ×2 (14:02→20:03)
[2019-10-11] MEDS: ASTELIN NASAL SPRAY NAS SCH (14:03)
--- NOTE | 2019-10-11 14:40 | ECHO REPORT ---
ORDER DATE: 10/09/2019 INDICATION: Possible cardiac arrest. FINDINGS: This is an extremely limited study due to the patient not being able to cooperate with positioning. 1. Probable normal LV systolic function. Although this is quite compromised, suspected EF is greater than equal to 55%. I would recommend repetition of the study when the patient is able to cooperate more fully with positioning. Wall motion analysis cannot be performed. 2. The right ventricular systolic function appears normal. 3. No pericardial effusion. There is a pleural effusion as well as ascitic fluid noted. 4. No mitral valve prolapse. 5. Limited Doppler evaluation due to patient positioning. Again, would recommend repetition of the study when he is able to cooperate more fully. 6. Aortic valve appears to open well. cc: MD Chayo Hill CRNP
[2019-10-11] MEDS: PHENERGAN IV PRN ×2 (18:43→22:37)
[2019-10-11] MEDS: REQUIP PO SCH (20:02)
[2019-10-11] MEDS: DESYREL PO SCH (20:02)
[2019-10-11] MEDS: FLOMAX PO SCH (20:02)
[2019-10-11] MEDS: MELATONIN PO SCH (20:02)
[2019-10-11] MEDS: POLYSPORIN OINTMENT TOP SCH (20:04)
[2019-10-12] MEDS: ZOSYN 3.375 GM in NS 50 ML IV SCH ×4 (03:45→21:06)
[2019-10-12] MEDS: PHENERGAN IV PRN ×3 (03:45→21:05)
[2019-10-12] MEDS: VANCOCIN PO SCH ×4 (03:50→21:06)
[2019-10-12] MEDS: SYNTHROID PO SCH (05:59)
[2019-10-12] MEDS: PRILOSEC PO SCH (05:59)
[2019-10-12] MEDS: HUMULIN R SUBQ SCH ×4 (06:38→21:07)
[2019-10-12 06:39] LABS: AGAP 11; ALB/GLOB RATIO 0.8; ALBUMIN 2.8 g/dL (3.5-5.0); ALKALINE PHOSPHATASE 73 U/L (32-122); BUN 16 mg/dL (8-22); CALCIUM 8.4 mg/dL (8.8-10.2); CHLORIDE 101 mmol/L (98-107); COSMO 276; CREATININE 0.9 mg/dL (0.7-1.2); ESTIMATED GFR > 60; GLUCOSE 154 mg/dL (70-104); GOT 17 U/L (10-34); GPT 6 U/L (10-44); MAGNESIUM 1.5 mg/dL (1.5-2.7); POTASSIUM 3.6 mmol/L (3.5-5.1); SODIUM 136 mmol/L (136-145); TCO2 24 mmol/L (25-35); TOTAL BILIRUBIN 0.42 mg/dL (0.20-1.00); TOTAL PROTEIN 6.4 g/dL (6.3-8.3)
[2019-10-12 06:45] LABS: BASO# 0.01 X1000 (0.0-0.2); BASO% 0.1 % (0.0-0.8); HEMATOCRIT 34.9 % (42.0-52.0); HEMOGLOBIN 11.2 g/dL (14.0-18.0); IMM GRAN# 0.04 X1000 (0.0-0.04); IMM GRAN% 0.3 % (0.0-0.5); LYMPH# 0.84 X1000 (1.2-3.4); LYMPH% 5.5 % (20.5-51.1); MCH 28.9 PG (27-31); MCHC 32.1 g/dL (33-37); MCV 90.2 FL (81-99); MONO# 1.04 X1000 (0.11-0.59); MONO% 6.9 % (1.7-9.3); MPV 9.4 FL (7.4-10.4); NEUT# 13.23 X1000 (1.4-6.5); NEUT% 87.2 % (42.2-75.2); PLT 228 X1000 (130-400); RBC 3.87 XMIL (4.7-6.1); RDW 13.5 % (11.5-14.5); WBC 15.16 X1000 (4.8-10.8)
[2019-10-12] MEDS: SUBOXONE 8 MG/2 MG SL SCH ×2 (10:05→21:03)
[2019-10-12] MEDS: APRESOLINE PO SCH ×3 (10:07→21:03)
[2019-10-12] MEDS: ASPIRIN EC PO SCH (10:07)
[2019-10-12] MEDS: ZYLOPRIM PO SCH (10:07)
[2019-10-12] MEDS: DEPAKOTE ER PO SCH ×2 (10:08→21:03)
[2019-10-12] MEDS: ASTELIN NASAL SPRAY NAS SCH (10:08)
[2019-10-12] MEDS: VITAMIN B-12 SL SCH (10:09)
[2019-10-12] MEDS ORDERED: MAGNESIUM SULFATE 2 GM/S.W.I. 2 GM/50 ML IVPB IV ONE (10:44)
[2019-10-12] MEDS ORDERED: SODIUM CHLORIDE 0.9% INJ SCH (11:00)
--- NOTE | 2019-10-12 11:26 | Diag Imaging Result Doc PS360 ---
FLAT/UPRIGHT ABD/1 VIEW CHEST - 10/12/2019 INDICATION: diarrhea/nausea/vomiting TECHNIQUE: COMPARISON: 10/09/2019 FINDINGS: The chest is clear. There is some diffuse hyperinflation of the colon, nonspecific. There are bilateral flank soft tissue calcifications. No evidence of small bowel obstruction. No free air. There are splenic granulomas. IMPRESSION: No change from prior. Electronically signed by Vinh Murillo 10/12/2019 11:24 AM
[2019-10-12] MEDS: LABETALOL IV PRN ×2 (11:59→16:50)
[2019-10-12] MEDS: PROTONIX IV SCH ×2 (12:00→23:58)
[2019-10-12] MEDS: CLINIMIX E 4.25%-5% SOLUTION 1,000 ML IV SCH (12:00)
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
[2019-10-12] MEDS ORDERED: CARDENE 20 MG/NS 20 MG/200 ML PIGGYBACK IV SCH (19:00)
--- NOTE | 2019-10-12 20:41 | PROGRESS NOTE ---
DATE: 10/12/2019 SUBJECTIVE: The patient is resting comfortably. He has been vomiting all morning and having diarrhea. He currently has a rectal tube in place, and his abdomen is distended. OBJECTIVE: Vital Signs: T-max 99.6 degrees, blood pressure 208/81, heart rate 90, respirations 19, O2 saturation 98% on room air. General: This is a chronically ill- appearing elderly male lying in bed in no acute distress. Heart: S1, S2 normal. Tachycardic. Lungs: Equal air entry bilaterally. No wheezing. No rales. Abdomen: Hypoactive bowel sounds, distended. Extremities: 1+ edema bilaterally. Neurologic: The patient is sight impaired. He is alert. LABORATORY DATA: White blood cell count 15, hemoglobin 11, hematocrit 34, platelets 228,000. Sodium 136, potassium 3.6, chloride 101, CO2 24, BUN 16, creatinine 0.9, glucose 154, magnesium 1.5, AST 17. IMAGING: Abdominal x-ray shows diffuse hyperinflation of the colon. ASSESSMENT AND PLAN: 1. Nausea, vomiting with abdominal distention. The patient is now NPO since he is unable to tolerate oral intake. We will switch his medications to IV. Gastroenterology has also been consulted for further recommendations. 2. Sepsis secondary to colitis and proctitis. Continue with the current antibiotic regimen. The Clostridium difficile assays were negative. 3. Accelerated hypertension. We will transfer the patient to the ICU and start a Cardene drip. 4. Metabolic encephalopathy. Resolved. 5. Leukocytosis, slightly improved. Continue with antibiotic therapy. 6. Hypomagnesemia. We will replace the patient's magnesium. 7. Benign prostatic hypertrophy. Aware. 8. Hypothyroidism. The patient has been switched to IV Synthroid. DISPOSITION: The patient's [id number] was updated on the patient's medical condition. cc: Daniela Sandoval MD [facility]ITAL[facility]ques
[2019-10-12] MEDS: REQUIP PO SCH (21:03)
[2019-10-12] MEDS: FLOMAX PO SCH (21:03)
[2019-10-12] MEDS: MELATONIN PO SCH (21:03)
[2019-10-12] MEDS: SODIUM CHLORIDE 0.9% INJ PRN (21:05)
[2019-10-12] MEDS: DESYREL PO SCH (21:05)
[2019-10-12] MEDS: POLYSPORIN OINTMENT TOP SCH (21:08)
[2019-10-12] MEDS: CARDENE 40 MG/NS 40 MG/200 ML PIGGYBACK IV SCH (21:40)
[2019-10-12] MEDS: SODIUM CHLORIDE 0.9% INJ SCH (23:59)
[2019-10-13] MEDS ORDERED: RESTORIL PO ONE (01:45)
[2019-10-13] MEDS: CLINIMIX E 4.25%-5% SOLUTION 1,000 ML IV SCH ×3 (02:32→17:11)
[2019-10-13] MEDS: CARDENE 40 MG/NS 40 MG/200 ML PIGGYBACK IV SCH (02:59)
[2019-10-13] MEDS: VANCOCIN PO SCH ×5 (04:46→23:11)
[2019-10-13] MEDS: ZOSYN 3.375 GM in NS 50 ML IV SCH ×4 (04:46→20:58)
[2019-10-13] MEDS: SYNTHROID IV SCH (06:18)
[2019-10-13] MEDS: SODIUM CHLORIDE 0.9% INJ PRN (06:19)
[2019-10-13 06:31] LABS: HEMOGLOBIN 10.7 g/dL (14.0-18.0); IMM GRAN# 0.04 X1000 (0.0-0.04); IMM GRAN% 0.4 % (0.0-0.5)
[2019-10-13 07:11] LABS: AGAP 13; ALB/GLOB RATIO 0.8; ALBUMIN 2.4 g/dL (3.5-5.0); ALKALINE PHOSPHATASE 51 U/L (32-122); BUN 14 mg/dL (8-22); CALCIUM 7.9 mg/dL (8.8-10.2); CHLORIDE 100 mmol/L (98-107); COSMO 282; CREATININE 0.9 mg/dL (0.7-1.2); ESTIMATED GFR > 60; GLUCOSE 199 mg/dL (70-104); GOT 10 U/L (10-34); GPT 5 U/L (10-44); MAGNESIUM 1.7 mg/dL (1.5-2.7); POTASSIUM 3.4 mmol/L (3.5-5.1); SODIUM 138 mmol/L (136-145); TCO2 25 mmol/L (25-35); TOTAL BILIRUBIN 0.33 mg/dL (0.20-1.00); TOTAL PROTEIN 5.6 g/dL (6.3-8.3)
[2019-10-13] MEDS: APRESOLINE PO SCH ×3 (08:09→20:59)
[2019-10-13] MEDS: HUMULIN R SUBQ SCH ×4 (08:09→21:01)
[2019-10-13] MEDS: POTASSIUM CHLORIDE 20 MEQ/SWI 20 MEQ/100 ML IVPB IV SCH ×2 (08:15→14:16)
[2019-10-13] MEDS: ASTELIN NASAL SPRAY NAS SCH (08:30)
[2019-10-13] MEDS ORDERED: CARDIZEM 100 MG/NS 100 MG/100 ML IVPB IV SCH (08:45)
[2019-10-13] MEDS ORDERED: DIPRIVAN 1% ONE (09:11)
--- NOTE | 2019-10-13 09:15 | EKG Report ---
Test Performed on : 10/13/2019 07:56:24 AM Test Reason : TACHYCARDIA Blood Pressure : / mmHG Vent. Rate : 117 BPM Atrial Rate : 117 BPM P-R Int : 136 ms QRS Dur : 082 ms QT Int : 272 ms P-R-T Axes : 092 030 047 degrees QTc Int : 379 ms Sinus tachycardia. with premature atrial complexes. Otherwise normal ECG When compared with ECG of 09-OCT-2019 09:44, (Unconfirmed) premature atrial complexes. are now present Vent. rate has increased BY 53 BPM Non-specific change in ST segment in Lateral leads Confirmed by Marcos Basilio MD ([id number]) on 10/13/2019 12:16:20 PM
[2019-10-13] MEDS ORDERED: VERSED ONE (09:20)
[2019-10-13] MEDS ORDERED: BREVIBLOC ONE (09:23)
[2019-10-13] MEDS: ASPIRIN EC PO SCH (09:39)
[2019-10-13] MEDS: SUBOXONE 8 MG/2 MG SL SCH ×2 (09:50→20:58)
[2019-10-13] MEDS: DEPAKOTE ER PO SCH ×2 (09:50→20:58)
[2019-10-13] MEDS: VITAMIN B-12 SL SCH (09:51)
[2019-10-13] MEDS: ZYLOPRIM PO SCH (09:51)
[2019-10-13 09:57] LABS: BASO# 0.02 X1000 (0.0-0.2); BASO% 0.2 % (0.0-0.8); EOS# 0.07 X1000 (0.0-0.7); EOS% 0.8 % (0.0-10.0); HEMATOCRIT 32.9 % (42.0-52.0); LYMPH# 0.84 X1000 (1.2-3.4); LYMPH% 9.3 % (20.5-51.1); MCH 29.5 PG (27-31); MCHC 32.5 g/dL (33-37); MCV 90.6 FL (81-99); MONO# 0.87 X1000 (0.11-0.59); MONO% 9.6 % (1.7-9.3); MPV 9.5 FL (7.4-10.4); NEUT# 7.21 X1000 (1.4-6.5); NEUT% 79.7 % (42.2-75.2); PLT 223 X1000 (130-400); RBC 3.63 XMIL (4.7-6.1); RDW 13.7 % (11.5-14.5); WBC 9.05 X1000 (4.8-10.8)
[2019-10-13] MEDS ORDERED: CARDIZEM IV ONE (10:04)
[2019-10-13] MEDS ORDERED: CARDIZEM ONE (10:12)
[2019-10-13 10:30] LABS: INR 1.06
[2019-10-13] MEDS ORDERED: NS 250 ML ONE (11:15)
[2019-10-13] MEDS ORDERED: NS 250 ML IV ONE (11:22)
[2019-10-13] MEDS ORDERED: LANOXIN IV ONE ×2 (11:23→13:30)
[2019-10-13] MEDS: LABETALOL IV PRN (12:06)
[2019-10-13] MEDS ORDERED: CORDARONE 150 MG/D5W 150 MG/100 ML IV.SOLN IV ONE (12:20)
[2019-10-13] MEDS ORDERED: CORDARONE 360 MG/D5W 360 MG/200 ML IV.SOLN IV ONE (12:20)
[2019-10-13] MEDS ORDERED: LOVENOX 1 MG/KG SUBQ SCH (12:30)
[2019-10-13] MEDS ORDERED: LOVENOX SUBQ SCH (12:30)
--- NOTE | 2019-10-13 12:31 | EKG Report ---
Test Performed on : 10/13/2019 11:35:20 AM Test Reason : AFIB Blood Pressure : / mmHG Vent. Rate : 161 BPM Atrial Rate : 138 BPM P-R Int : 000 ms QRS Dur : 078 ms QT Int : 280 ms P-R-T Axes : 000 019 048 degrees QTc Int : 458 ms Atrial fibrillation. with rapid ventricular response. Nonspecific ST abnormality Abnormal ECG When compared with ECG of 13-OCT-2019 07:56, Atrial fibrillation. has replaced Sinus rhythm. Confirmed by Marcos Basilio MD ([id number]) on 10/14/2019 8:10:06 AM
[2019-10-13] MEDS ORDERED: HEPARIN IV ONE (12:39)
[2019-10-13] MEDS ORDERED: HEPARIN IV PRN (12:39)
[2019-10-13] MEDS ORDERED: HEPARIN 25,000 UNITS/D5W 25,000 UNIT/250 ML IV.SOLN IV SCH (12:45)
--- NOTE | 2019-10-13 13:17 | Diag Imaging Result Doc PS360 ---
EXAM: CHEST-PORTABLE HISTORY: afib, dyspnea, recent PICC placement TECHNIQUE: Single view COMPARISON: 10/12/2019 FINDINGS: The lungs are well expanded. Interval placement of a right-sided PICC line. Tip overlies the right atrium near the junction with superior vena cava. The heart is not enlarged. The vessels are not distended. There are no infiltrates. No effusion identified. IMPRESSION: PICC line in good position. Electronically signed by Sourav Boyce 10/13/2019 1:15 PM
[2019-10-13] MEDS: PROTONIX IV SCH ×2 (14:06→23:11)
[2019-10-13] MEDS: LOPRESSOR IV SCH ×3 (14:15→23:41)
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
[2019-10-13] MEDS ORDERED: CORDARONE 540 MG in D5W 289.2 ML IV ONE (18:20)
--- NOTE | 2019-10-13 20:12 | PROGRESS NOTE ---
DATE: 10/13/2019 SUBJECTIVE: The patient was noted to be in sinus tachycardia early this morning and then converted into atrial fibrillation with RVR with heart rates as high as the 180s. The patient was started on a Cardizem drip that was eventually maxed out, but the heart rate remained elevated. Cardiology was consulted for further assistance. OBJECTIVE: Vital Signs: Temperature 98.6, blood pressure 170/74, heart rate 85, respirations 20, O2 saturation 95% on room air. Intake 1.1 L, output 300 mL. General: This is a chronically-ill- appearing male lying in bed in no acute distress. Heart: S1, S2 normal. Irregularly irregular rhythm. Lungs: Equal air entry bilaterally. No wheezing. No rales. Abdomen: Positive bowel sounds, distended. Extremities: 1+ edema bilaterally. Neurologic: The patient is alert and oriented x4. LABS: White blood cell count 9, hemoglobin 10, hematocrit 32, platelets 223. INR 1. Sodium 138, potassium 3.4, chloride 100, CO2 25, BUN 14, creatinine 0.9, glucose 199, magnesium 1.7. AST 10, ALT 5, alkaline phosphatase 51. ASSESSMENT AND PLAN: 1. Atrial fibrillation with rapid ventricular response. Management as per the room service runner. 2. Nausea, vomiting with abdominal distention. The patient's EGD was canceled this morning due to his cardiac instability. Gastroenterology is following. 3. Sepsis secondary to colitis and proctitis. Slowly improving. Continue on the current antibiotic regimen. 4. Metabolic encephalopathy. Resolved. 5. Leukocytosis. Resolved. 6. Anemia. Stable. 7. Benign prostatic hypertrophy. Aware. 8. Hypothyroidism. Continue on IV Synthroid. 9. Disposition. The patient's [id number] was updated on the patient's medical condition. cc: Daniela Sandoval MD
[2019-10-13] MEDS: HEPARIN 25,000 UNITS/D5W 25,000 UNIT/250 ML IV.SOLN IV SCH (20:17)
[2019-10-13] MEDS: MELATONIN PO SCH (20:58)
[2019-10-13] MEDS: FLOMAX PO SCH (20:58)
[2019-10-13] MEDS: DESYREL PO SCH (20:59)
[2019-10-13] MEDS: REQUIP PO SCH (20:59)
[2019-10-13] MEDS: POLYSPORIN OINTMENT TOP SCH (21:00)
[2019-10-13] MEDS: SODIUM CHLORIDE 0.9% INJ SCH (23:11)
[2019-10-14] MEDS ORDERED: APRESOLINE PO ONE (01:13)
[2019-10-14] MEDS: LABETALOL IV PRN ×4 (01:19→16:16)
[2019-10-14] MEDS: ZOSYN 3.375 GM in NS 50 ML IV SCH ×4 (01:33→20:53)
[2019-10-14] MEDS: VANCOCIN PO SCH ×4 (04:38→21:08)
[2019-10-14] MEDS: CLINIMIX E 4.25%-5% SOLUTION 1,000 ML IV SCH ×2 (04:59→17:59)
[2019-10-14] MEDS: LOPRESSOR IV SCH ×3 (07:22→17:48)
[2019-10-14] MEDS: SODIUM CHLORIDE 0.9% INJ PRN ×2 (07:22→22:53)
[2019-10-14] MEDS: HUMULIN R SUBQ SCH ×4 (07:22→21:06)
[2019-10-14] MEDS: SYNTHROID IV SCH (07:22)
[2019-10-14] MEDS: HEPARIN 25,000 UNITS/D5W 25,000 UNIT/250 ML IV.SOLN IV SCH ×2 (07:40→14:05)
--- NOTE | 2019-10-14 07:41 | EKG Report ---
Test Performed on : 10/14/2019 07:06:44 AM Test Reason : afib Blood Pressure : / mmHG Vent. Rate : 088 BPM Atrial Rate : 088 BPM P-R Int : 132 ms QRS Dur : 084 ms QT Int : 336 ms P-R-T Axes : 045 030 043 degrees QTc Int : 406 ms Sinus rhythm. with premature supraventricular complexes. Otherwise normal ECG When compared with ECG of 14-OCT-2019 05:29, (Unconfirmed) premature supraventricular complexes. are now present Vent. rate has decreased BY 98 BPM Minimal criteria for Inferior infarct are no longer present Nonspecific T wave abnormality no longer evident in Lateral leads Confirmed by Marcos Basilio MD ([id number]) on 10/14/2019 8:11:16 AM
--- NOTE | 2019-10-14 07:49 | EKG Report ---
Test Performed on : 10/14/2019 05:13:32 AM Test Reason : HR CHANGE Blood Pressure : / mmHG Vent. Rate : 190 BPM Atrial Rate : 192 BPM P-R Int : 000 ms QRS Dur : 084 ms QT Int : 258 ms P-R-T Axes : 000 000 216 degrees QTc Int : 458 ms Supraventricular tachycardia. Possible Inferior infarct , age undetermined Cannot rule out Anterior infarct , age undetermined ST & T wave abnormality, consider lateral ischemia Abnormal ECG When compared with ECG of 13-OCT-2019 11:35, (Unconfirmed) Sinus rhythm. has replaced Atrial fibrillation. Borderline criteria for Inferior infarct are now present T wave inversion now evident in Inferior leads T wave inversion now evident in Anterolateral leads Confirmed by Praful DOHERTY, MJung Sharp ([id number]) on 10/14/2019 8:10:52 AM
--- NOTE | 2019-10-14 07:49 | EKG Report ---
Test Performed on : 10/14/2019 05:29:16 AM Test Reason : HR CHANGE Blood Pressure : / mmHG Vent. Rate : 186 BPM Atrial Rate : 186 BPM P-R Int : 000 ms QRS Dur : 086 ms QT Int : 188 ms P-R-T Axes : 000 001 187 degrees QTc Int : 330 ms Supraventricular tachycardia. Cannot rule out Inferior infarct (cited on or before 14-OCT-2019) Cannot rule out Anterior infarct (cited on or before 14-OCT-2019) Abnormal ECG When compared with ECG of 14-OCT-2019 05:13, (Unconfirmed) Serial changes of Anterior infarct present Confirmed by Marcos Basilio MD ([id number]) on 10/14/2019 8:10:55 AM
[2019-10-14 08:13] LABS: BASO# 0.04 X1000 (0.0-0.2); BASO% 0.5 % (0.0-0.8); EOS# 0.04 X1000 (0.0-0.7); EOS% 0.5 % (0.0-10.0); HEMATOCRIT 31.7 % (42.0-52.0); HEMOGLOBIN 10.2 g/dL (14.0-18.0); IMM GRAN# 0.16 X1000 (0.0-0.04); IMM GRAN% 1.8 % (0.0-0.5); LYMPH# 1.08 X1000 (1.2-3.4); LYMPH% 12.4 % (20.5-51.1); MCH 29.1 PG (27-31); MCHC 32.2 g/dL (33-37); MCV 90.6 FL (81-99); MONO# 1.18 X1000 (0.11-0.59); MONO% 13.5 % (1.7-9.3); MPV 9.4 FL (7.4-10.4); NEUT# 6.21 X1000 (1.4-6.5); NEUT% 71.3 % (42.2-75.2); PLT 208 X1000 (130-400); RDW 13.5 % (11.5-14.5); WBC 8.71 X1000 (4.8-10.8)
[2019-10-14] MEDS: ZYLOPRIM PO SCH (08:32)
[2019-10-14] MEDS: COREG PO SCH ×2 (08:32→21:04)
[2019-10-14] MEDS: APRESOLINE PO SCH ×3 (08:32→21:04)
[2019-10-14] MEDS: VITAMIN B-12 SL SCH (08:32)
[2019-10-14] MEDS: DEPAKOTE ER PO SCH ×2 (08:32→21:05)
[2019-10-14] MEDS: ASPIRIN EC PO SCH (08:32)
[2019-10-14] MEDS: SUBOXONE 8 MG/2 MG SL SCH ×2 (08:32→21:05)
[2019-10-14] MEDS: ASTELIN NASAL SPRAY NAS SCH (08:57)
[2019-10-14 09:21] LABS: AGAP 13; ALB/GLOB RATIO 0.7; ALBUMIN 2.2 g/dL (3.5-5.0); ALKALINE PHOSPHATASE 48 U/L (32-122); BUN 13 mg/dL (8-22); CALCIUM 7.7 mg/dL (8.8-10.2); CHLORIDE 97 mmol/L (98-107); COSMO 271; CREATININE 0.9 mg/dL (0.7-1.2); ESTIMATED GFR > 60; GLUCOSE 181 mg/dL (70-104); GOT 13 U/L (10-34); GPT 7 U/L (10-44); MAGNESIUM 1.5 mg/dL (1.5-2.7); POTASSIUM 3.4 mmol/L (3.5-5.1); SODIUM 133 mmol/L (136-145); TCO2 23 mmol/L (25-35); TOTAL BILIRUBIN 0.35 mg/dL (0.20-1.00); TOTAL PROTEIN 5.3 g/dL (6.3-8.3)
--- NOTE | 2019-10-14 09:33 | Extremity Venous Study ---
PROCEDURE NAME: Venous U/S Bilateral Legs - 10/13/2019 REQUESTING PROVIDER: Rory. FARROWING WORKER: Mann. INDICATIONS: Swelling. EQUIPMENT: [employer] Concierge Vivid E9 ultrasound system with a 9 L-D transducer. FINDINGS: Images in the bilateral lower extremity venous systems were obtained in both sagittal and transverse planes. Doppler was used to evaluate veins for spontaneity, phasicity, respiratory excursion, and digital augmentation. RESULTS: Normal venous compression, normal venous flow. No obvious superficial or deep venous thrombosis noted. INTERPRETATION: Essentially normal bilateral lower extremity venous study. cc: MD Kimberly Whitley, PA
[2019-10-14] MEDS ORDERED: POTASSIUM CHLORIDE 60 MEQ in NS 500 ML IV ONE (09:51)
[2019-10-14] MEDS ORDERED: MAGNESIUM SULFATE 2 GM/S.W.I. 2 GM/50 ML IVPB IV ONE (09:51)
[2019-10-14] MEDS: PROTONIX IV SCH ×2 (13:21→22:52)
[2019-10-14] MEDS ORDERED: MISC. PHARMACY COMMUNICATION SCH (13:30)
--- NOTE | 2019-10-14 13:36 | GASTROENTEROLOGY PROGRESS NOTE ---
DATE: 10/14/2019 SUBJECTIVE: Mr. No is a 64-year-old male. He is resting in bed. The patient is legally blind, sleepy and was just able to tell me his name, but did not remember anything else. Family is at the bedside. The patient is currently n.p.o. He has been having positive bowel movements; he did have one today. OBJECTIVE: Vital Signs: Temperature 98.9 degrees, pulse 76, respirations 18, blood pressure 177/80, oxygen saturation is 98%. He is on 2 L nasal cannula. The patient's weight is 231 pounds. BMI is 31.3 kg/m2. General: He is alert, oriented x1, in no acute distress. HEENT: Pale conjunctivae. No icterus. Neck: Supple. Cardiovascular: Irregular heart rate. Lungs: Wheezing heard in the anterior lobes. Abdomen: Distended, Obese, soft, nontender. Hypoactive bowel sounds heard in all 4 quadrants. Extremities: No clubbing. No cyanosis. 1+ edema in the lower extremities. Neurologic: Alert and oriented x1. LABORATORY DATA: WBCs are 8.71, RBC 3.50, hemoglobin 10.2, hematocrit is 31.7, platelet count is 208. Sodium 133, potassium 3.4, chloride 97, carbon dioxide 23, anion gap 13. BUN 13, creatinine is 0.9, glucose is 181, calcium is 7.7, magnesium 1.5, total bilirubin is 0.35. AST is 13, ALT is 7, alkaline phosphatase is 48, albumin is 2.2. IMPRESSION AND PLAN: Nausea and vomiting Abdominal distention Sepsis Afib on heparin drip Obesity Anemia Hypoalbuminemia Malnutrition PLAN: Mr. No is a 64-year-old male, who is legally blind. Gastroenterology is following him for his nausea and vomiting. The plan was to do an EGD yesterday, but the patient was tachycardic and his heart rate was in the 160s. Dr. Arana had to stop the procedure. Today the patient's blood pressure is elevated. The patient is NPO. We will continue with antiemetics. He is receiving Zosyn and Vancocin for his sepsis. We will continue him on PPI's twice a day. He is receiving Clinimix 75 mL/hour for his nutrition. We will continue to monitor the patient and, once his heart rate and blood pressure is stabilized, we will plan to do an EGD. We will continue to follow the plan of care per PCP. This plan was discussed with Dr. Morton. Please call us for any further questions or concerns. Dictated by BERTIN French for Maciel Morton MD cc: Maciel Morton MD I have seen and examined the patient myself and I agree with the above plan of care. Please call us with any questions or concerns. MTDD
[2019-10-14] MEDS: CORDARONE 360 MG/D5W 360 MG/200 ML IV.SOLN IV SCH (14:06)
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
[2019-10-14] MEDS: LOVENOX SUBQ SCH (17:59)
[2019-10-14] MEDS ORDERED: APRESOLINE PO SCH (21:00)
[2019-10-14] MEDS: REQUIP PO SCH (21:04)
[2019-10-14] MEDS: MELATONIN PO SCH (21:04)
[2019-10-14] MEDS: FLOMAX PO SCH (21:04)
[2019-10-14] MEDS: DESYREL PO SCH (21:05)
[2019-10-14] MEDS: PRINIVIL PO SCH (21:05)
[2019-10-14] MEDS: POLYSPORIN OINTMENT TOP SCH (21:06)
--- NOTE | 2019-10-14 21:14 | PROGRESS NOTE ---
DATE: 10/14/2019 SUBJECTIVE: The patient states that he is thirsty and wants something to drink. His blood pressure has been running high today. OBJECTIVE: Vital Signs: Temperature 98.3 degrees, blood pressure 185/90, heart rate 63, respirations 17, O2 saturations 100% on room air. General: This is a chronically ill-appearing male lying in bed in no acute distress. Heart: S1, S2 normal. Lungs: Clear to auscultation bilaterally. Abdomen: Positive bowel sounds, distended. Extremities: No edema. No cyanosis. Neurologic: The patient is alert and oriented x3. LABS: White blood cell count 8.7, hemoglobin 10, hematocrit 31, platelets 208,000. Sodium 133, potassium 3.4, chloride 97, CO2 23, BUN 13, creatinine 0.9 glucose 181, magnesium 1.5. ASSESSMENT AND PLAN: 1. Atrial fibrillation. The patient is rate controlled. Continue with the regimen as directed by the leather production machine operator. 2. Uncontrolled hypertension. We will adjust the patient's antihypertensive regimen. 3. Abdominal distention. Gastroenterology is following for eventual endoscopy once the patient's blood pressure improves. 4. Sepsis secondary to colitis and proctitis. Continue on the current antibiotic regimen. 5. Metabolic encephalopathy. Resolved. 6. Benign prostatic hypertrophy. Aware. 7. Hypothyroidism. Continue on Synthroid. 8. Anemia. Stable. 9. Hypomagnesemia. We will replace the patient's magnesium. 10. Hypokalemia. We will replace the patient's potassium. 11. Deep vein thrombosis prophylaxis. Continue on Lovenox. cc: Daniela Sandoval MD
[2019-10-14] MEDS: SODIUM CHLORIDE 0.9% INJ SCH (22:53)
[2019-10-14] MEDS: PHENERGAN IV PRN (22:53)
[2019-10-15] MEDS: LOPRESSOR IV SCH ×4 (00:30→18:06)
[2019-10-15] MEDS: ZOSYN 3.375 GM in NS 50 ML IV SCH ×4 (01:18→20:53)
[2019-10-15] MEDS: CORDARONE 360 MG/D5W 360 MG/200 ML IV.SOLN IV SCH ×2 (01:19→13:07)
[2019-10-15] MEDS: VANCOCIN PO SCH ×4 (06:03→21:04)
[2019-10-15] MEDS: SYNTHROID IV SCH (06:06)
[2019-10-15] MEDS: SODIUM CHLORIDE 0.9% INJ PRN (06:07)
[2019-10-15] MEDS: HUMULIN R SUBQ SCH ×4 (06:23→20:56)
[2019-10-15 06:45] LABS: BASO# 0.03 X1000 (0.0-0.2); BASO% 0.4 % (0.0-0.8); EOS% 2.6 % (0.0-10.0); HEMATOCRIT 31.4 % (42.0-52.0); HEMOGLOBIN 10.1 g/dL (14.0-18.0); IMM GRAN# 0.07 X1000 (0.0-0.04); IMM GRAN% 0.9 % (0.0-0.5); LYMPH% 16.6 % (20.5-51.1); MCH 29.1 PG (27-31); MCHC 32.2 g/dL (33-37); MCV 90.5 FL (81-99); MONO# 1.23 X1000 (0.11-0.59); MONO% 15.7 % (1.7-9.3); MPV 9.3 FL (7.4-10.4); NEUT# 4.99 X1000 (1.4-6.5); NEUT% 63.8 % (42.2-75.2); PLT 207 X1000 (130-400); RBC 3.47 XMIL (4.7-6.1); RDW 13.7 % (11.5-14.5); WBC 7.82 X1000 (4.8-10.8)
--- NOTE | 2019-10-15 06:45 | Diag Imaging Result Doc PS360 ---
FLAT/UPRIGHT ABD/1 VIEW CHEST - 10/15/2019 INDICATION: abdominal distention and dyspnea TECHNIQUE: COMPARISON: 10/13/2019 FINDINGS: Stable right PICC line in good position. There are hazy increased markings throughout the lungs consistent with mild pulmonary edema. Heart size remains top normal. Grossly stable, diffusely gas-distended loops of colon. No evidence of free air. IMPRESSION: 1. There may be mild pulmonary edema throughout the chest now. 2. No change in the diffusely abnormal, nonspecific gas distended loops of colon. Electronically signed by Vinh Murillo 10/15/2019 6:43 AM
[2019-10-15 07:17] LABS: AGAP 10; ALB/GLOB RATIO 0.6; ALKALINE PHOSPHATASE 41 U/L (32-122); BUN 14 mg/dL (8-22); CALCIUM 7.5 mg/dL (8.8-10.2); CHLORIDE 97 mmol/L (98-107); COSMO 264; CREATININE 0.9 mg/dL (0.7-1.2); ESTIMATED GFR > 60; GLUCOSE 155 mg/dL (70-104); GOT 12 U/L (10-34); GPT 7 U/L (10-44); MAGNESIUM 1.8 mg/dL (1.5-2.7); PHOSPHORUS 3.3 mg/dL (2.7-4.5); SODIUM 130 mmol/L (136-145); TCO2 23 mmol/L (25-35); TOTAL BILIRUBIN 0.28 mg/dL (0.20-1.00); TOTAL PROTEIN 5.4 g/dL (6.3-8.3)
[2019-10-15 08:44] LABS: BANDS 12 % (0-1); EOS 3 % (1-10); LYMPHS 22 % (21-51); MONO 7 % (1-9); NRBC 1 % (0-0); SEGS 52 % (42-75)
[2019-10-15] MEDS ORDERED: LOVENOX SUBQ SCH (09:00)
[2019-10-15] MEDS ORDERED: PRINIVIL PO SCH (09:00)
[2019-10-15] MEDS: CLINIMIX E 4.25%-5% SOLUTION 1,000 ML IV SCH (10:26)
[2019-10-15] MEDS ORDERED: DIPRIVAN 1% ONE (10:35)
[2019-10-15] MEDS ORDERED: DUONEB (A & A) INH ONE (10:49)
--- NOTE | 2019-10-15 11:24 | ENDOSCOPY OPERATIVE NOTE ---
[facility] ENDOSCOPY OPERATIVE NOTE , EGD PROCEDURE REPORT EXAM DATE: 10/15/2019 PATIENT NAME: Stephen No MR#: [id number] BIRTHDATE: 1955 ATTENDING: Stephen Arana MD STATUS: inpatient MODELING DIRECTOR: INDICATIONS: The patient is a 64 yr old male here for an EGD due to nausea and vomiting. Now [facility] PROCEDURE PERFORMED: EGD, diagnostic MEDICATIONS: Per Anesthesia ESTIMATED BLOOD LOSS: None CONSENT: The patient understands the risks and benefits of the procedure and understands that these r isks include, but are not limited to: sedation, allergic reaction, infection, perforation and/or bleeding. Alternative means of evaluation and treatment include, among others: physical exam, x-rays, and/or surgical intervention. The patient elects to proceed with this endoscopic procedure. DESCRIPTION OF PROCEDURE: During pre-op preparation period all mechanical and medical equipment was c hecked for proper function. Hand hygiene and appropriate measures for infection prevention was taken. After the risks, benefits and alternatives of the procedure were thoroughly explained, Informed consent was verified, confirmed and timeout was successfully executed by the treatment team. The patient was anesthetized with topical anesthesia and the endoscope was introduced through the mouth and advanced to the second portion of the duodenum. Retroflexion wa s performed in the stomach and revealed no abnormalities. The gastroscope was then slowly withdrawn and removed. The p atient's toleration of the procedure was excellent. ESOPHAGUS: The mucosa of the esophagus appeared normal. STOMACH: Mild gastritis (inflammation) was found in the gastric antrum. DUODENUM: The duodenum was normal. ADVERSE EVENTS: There were no complications. IMPRESSIONS: 1. The mucosa of the esophagus appeared normal 2. Gastritis (inflammation) was found in the gastric antrum 3. The duodenum was normal RECOMMENDATIONS: Transition pantoprazole to 40mg PO once daily Advance diet as tolerated Antiemetics prn REPEAT EXAM: Stephen Arana MD eSigned: Stephen Arana MD 10/15/2019 11:23 AM CC: CPT CODES: [id number] Upper gastrointestinal endoscopy including esophagus, stomach, and either the du odenum and/or jejunum as appropriate; diagnostic, with or without collection of specimen(s) by brushing or washing (separate procedure) ICD CODES: 787.02 Nausea 787.03 Vomiting,unspecified 535.50 Unspecified gastritis and gastroduodenitis (without hemorrhage) The ICD and CPT codes recommended by this software are interpretations from the data that the [facility] staff has captured with the software. The verification of the translation of this report to the ICD and CPT co felecia and modifiers is the sole responsibility of the health care institution and practicing physician where this report was generated. [employer] will not be held responsible for the validity of the ICD and CPT codes i ncluded on this report. A assumes no liability for data contained or not contained herein. CPT is a registered tra demark of the [employer]. PATIENT NAME: Stephen No MR#: [id number]
[2019-10-15] MEDS: APRESOLINE PO SCH ×3 (12:48→20:54)
[2019-10-15] MEDS: COREG PO SCH ×2 (12:49→20:55)
[2019-10-15] MEDS: PRINIVIL PO SCH ×2 (12:49→20:55)
[2019-10-15] MEDS: SUBOXONE 8 MG/2 MG SL SCH ×2 (12:50→20:54)
[2019-10-15] MEDS: VITAMIN B-12 SL SCH (13:07)
[2019-10-15] MEDS: ASPIRIN EC PO SCH (13:08)
[2019-10-15] MEDS: ZYLOPRIM PO SCH (13:08)
[2019-10-15] MEDS: PROTONIX PO SCH (13:08)
[2019-10-15] MEDS: DEPAKOTE ER PO SCH ×2 (13:08→20:58)
[2019-10-15] MEDS: ASTELIN NASAL SPRAY NAS SCH (13:08)
[2019-10-15] MEDS: LOVENOX SUBQ SCH (18:09)
--- NOTE | 2019-10-15 19:12 | PROGRESS NOTE ---
DATE: 10/15/2019 SUBJECTIVE: The patient is resting comfortably. He states that he wants something to eat. OBJECTIVE: Vital Signs: Temperature 98.4, blood pressure 171/75, heart rate 67, respirations 12, O2 saturation 99% on 2 L nasal cannula. Intake 2.4 L, output 600. General: This is a qlahymrzvuc-nui-xyqifholz elderly male lying in bed in no acute distress. Heart: S1, S2 normal. Lungs: Clear to auscultation bilaterally. Abdomen: Hypoactive bowel sounds. Distended. Extremities: Trace pedal edema. Neurologic: The patient is legally blind, but alert and oriented x3. LABS: White blood cell count 7.8, hemoglobin 10, hematocrit 31, platelets 207. Sodium 130, potassium 4, chloride 97, CO2 23, BUN 14, creatinine 0.9, glucose 155, calcium 7.5, magnesium 1.8. Abdominal x-ray in shows gas-distended loops of colon. ASSESSMENT AND PLAN: 1. Nausea and vomiting with abdominal distention. The patient had an EGD done this morning that revealed gastritis but was otherwise unremarkable. Continue on proton pump inhibitor therapy. We will start the patient on a full liquid diet and observe his response. 2. Uncontrolled hypertension. Continue on the current antihypertensive regimen. 3. Sepsis secondary to colitis and proctitis. The patient is on day 7 of zosyn treatment. 4. Benign prostatic hypertrophy. Aware. 5. Hypothyroidism. Continue on Synthroid. 6. Anemia. Stable. 7. Hyponatremia. We will monitor the sodium closely. 8. Deep vein thrombosis prophylaxis. Continue on Lovenox. 9. Atrial fibrillation. The patient is rate controlled. Continue on the current regimen as directed by the head sawyer automatic. cc: Daniela Sandoval MD [facility]
[2019-10-15] MEDS: DESYREL PO SCH (20:53)
[2019-10-15] MEDS: FLOMAX PO SCH (20:55)
[2019-10-15] MEDS: MELATONIN PO SCH (20:55)
[2019-10-15] MEDS: POLYSPORIN OINTMENT TOP SCH (20:58)
[2019-10-15] MEDS: REQUIP PO SCH (20:58)
[2019-10-16] MEDS: PHENERGAN IV PRN (00:40)
[2019-10-16] MEDS: LOPRESSOR IV SCH ×4 (00:40→18:36)
[2019-10-16] MEDS: CLINIMIX E 4.25%-5% SOLUTION 1,000 ML IV SCH ×2 (00:48→12:20)
[2019-10-16] MEDS: CORDARONE 360 MG/D5W 360 MG/200 ML IV.SOLN IV SCH (01:50)
[2019-10-16] MEDS: ZOSYN 3.375 GM in NS 50 ML IV SCH ×4 (02:13→20:31)
[2019-10-16] MEDS: VANCOCIN PO SCH ×4 (05:00→21:51)
[2019-10-16] MEDS: SYNTHROID PO SCH (06:31)
[2019-10-16] MEDS: PROTONIX PO SCH (06:31)
[2019-10-16] MEDS: HUMULIN R SUBQ SCH ×4 (06:33→20:48)
[2019-10-16 06:51] LABS: BASO# 0.01 X1000 (0.0-0.2); BASO% 0.1 % (0.0-0.8); EOS# 0.26 X1000 (0.0-0.7); EOS% 3.4 % (0.0-10.0); HEMOGLOBIN 9.5 g/dL (14.0-18.0); IMM GRAN# 0.05 X1000 (0.0-0.04); IMM GRAN% 0.7 % (0.0-0.5); LYMPH# 1.41 X1000 (1.2-3.4); LYMPH% 18.6 % (20.5-51.1); MCH 29.7 PG (27-31); MCHC 32.8 g/dL (33-37); MCV 90.6 FL (81-99); MONO# 1.03 X1000 (0.11-0.59); MONO% 13.6 % (1.7-9.3); MPV 9.3 FL (7.4-10.4); NEUT# 4.84 X1000 (1.4-6.5); NEUT% 63.6 % (42.2-75.2); PLT 240 X1000 (130-400); RDW 13.4 % (11.5-14.5)
[2019-10-16 07:28] LABS: AGAP 10; ALB/GLOB RATIO 0.7; ALBUMIN 2.1 g/dL (3.5-5.0); ALKALINE PHOSPHATASE 43 U/L (32-122); BUN 13 mg/dL (8-22); CALCIUM 8.1 mg/dL (8.8-10.2); CHLORIDE 94 mmol/L (98-107); COSMO 272; CREATININE 0.8 mg/dL (0.7-1.2); ESTIMATED GFR > 60; GLUCOSE 297 mg/dL (70-104); GOT 10 U/L (10-34); GPT 7 U/L (10-44); MAGNESIUM 1.9 mg/dL (1.5-2.7); POTASSIUM 4.8 mmol/L (3.5-5.1); SODIUM 130 mmol/L (136-145); TCO2 26 mmol/L (25-35); TOTAL BILIRUBIN 0.28 mg/dL (0.20-1.00); TOTAL PROTEIN 5.2 g/dL (6.3-8.3)
[2019-10-16] MEDS: VITAMIN B-12 SL SCH (08:58)
[2019-10-16] MEDS: PRINIVIL PO SCH ×2 (08:58→20:46)
[2019-10-16] MEDS: SUBOXONE 8 MG/2 MG SL SCH ×2 (08:58→20:46)
[2019-10-16] MEDS: APRESOLINE PO SCH ×3 (08:58→20:45)
[2019-10-16] MEDS: COREG PO SCH ×2 (08:58→20:46)
[2019-10-16] MEDS: ASPIRIN EC PO SCH (08:58)
[2019-10-16] MEDS: DEPAKOTE ER PO SCH ×2 (08:59→20:46)
[2019-10-16] MEDS: ZYLOPRIM PO SCH (08:59)
[2019-10-16] MEDS ORDERED: LINZESS PO SCH (09:00)
[2019-10-16] MEDS: ASTELIN NASAL SPRAY NAS SCH (09:03)
[2019-10-16] MEDS: TYLENOL PO PRN ×2 (10:00→22:33)
[2019-10-16 10:25] LABS: ANISOCYTOSIS 1+; BURR CELLS OCCASIONAL; EOS 4 % (1-10); HYPOCHROM 1+; LYMPHS 17 % (21-51); MONO 14 % (1-9); SEGS 65 % (42-75)
[2019-10-16] MEDS: CORDARONE PO SCH ×2 (12:19→20:47)
[2019-10-16] MEDS ORDERED: IMODIUM PO PRN (12:25)
[2019-10-16] MEDS ORDERED: LASIX IV ONE (12:31)
--- NOTE | 2019-10-16 16:31 | PROGRESS NOTE ---
DATE: 10/16/2019 SUBJECTIVE: The patient is resting comfortably. He states that he feels okay today. He wants his rectal tube removed. He states that he did not sleep well last night. OBJECTIVE: Vital Signs: Temperature 99 degrees, blood pressure 134/83, heart rate 101, respirations 26, O2 saturations 96% on 2 L nasal cannula. General: This is a morbidly obese male lying in bed in no acute distress. Heart: S1, S2 normal. Regular rate and rhythm. Lungs: Equal air entry bilaterally. No wheezes. No rales. Abdomen: Positive bowel sounds. Soft. Mildly distended. Extremities: 1+ edema. Neurologic: The patient is legally blind. He is alert and oriented x3. LABS: White blood cell count 7.6, hemoglobin 9.5, hematocrit 29, platelets 240,000, sodium 130, potassium 4.8, chloride 94, CO2 26, BUN 13, creatinine 0.8, glucose 297, magnesium 1.9. ASSESSMENT AND PLAN: 1. Gastritis and duodenitis. Continue on proton pump inhibitor therapy. 2. Sepsis secondary to colitis and proctitis. Today is day 8 of Zosyn treatment. The patient currently has a rectal tube due to copious amounts of liquid stool. 3. Benign prostatic hypertrophy. Aware. 4. Hypothyroidism. Continue Synthroid. 5. Hyponatremia. Unchanged. 6. Anemia. Stable. 7. Diabetes mellitus type 2. Continue on Lantus and sliding scale insulin. 8. Atrial fibrillation. The patient is rate controlled. The patient remains on amiodarone drip. We will defer to the photograph printer to transition to oral amiodarone. 9. Deep vein thrombosis prophylaxis. Will start the patient on Lovenox. 10. Disposition. The patient to be transferred to the medical floor once he has been transitioned off the amiodarone drip. cc: Daniela Sandoval MD MTDD
[2019-10-16] MEDS: LOVENOX SUBQ SCH (18:36)
[2019-10-16] MEDS: FLOMAX PO SCH (20:45)
[2019-10-16] MEDS: MELATONIN PO SCH (20:46)
[2019-10-16] MEDS: DESYREL PO SCH (20:47)
[2019-10-16] MEDS: REQUIP PO SCH (20:47)
[2019-10-16] MEDS: POLYSPORIN OINTMENT TOP SCH (20:48)
[2019-10-16] MEDS: CULTURELLE PO SCH (20:48)
[2019-10-16] MEDS: DUONEB (A & A) INH SCH (21:30)
[2019-10-17] MEDS: LOPRESSOR IV SCH ×5 (01:57→21:58)
[2019-10-17] MEDS: ZOSYN 3.375 GM in NS 50 ML IV SCH ×5 (01:57→21:58)
[2019-10-17] MEDS: VANCOCIN PO SCH ×4 (04:08→22:01)
[2019-10-17] MEDS: PHENERGAN IV PRN ×4 (04:09→21:59)
[2019-10-17] MEDS: SODIUM CHLORIDE 0.9% INJ PRN ×2 (04:09→21:59)
--- NOTE | 2019-10-17 04:56 | GASTROENTEROLOGY PROGRESS NOTE ---
DATE: 10/16/2019 SUBJECTIVE: Patient resting in bed. He is feeling better. He is passing liquid stools. He denies any more nausea and vomiting. He denies any fevers, rigors, chills. OBJECTIVE: Vital signs: Temperature 97.3 degrees, pulse rate 68, respiratory 16, blood pressure 140/64, saturating 100% on nasal cannula 2 L. Body weight of 231 pounds 1 ounces. BMI of 31.3 kg/m2. general: Obese, lying in bed, in no acute distress. HEENT: Pale conjunctiva. No icterus. Neck: Supple. Abdomen: Obese, nontender, nondistended. No guarding or rebound. He has mild tenderness in the periumbilical region. Extremities: No cyanosis, clubbing. Neurologic: He is awake, alert and answers simple questions. LABORATORY DATA: Hemoglobin and hematocrit is 9.5 and 29, white count of 7.6, platelet count of 240,000. Sodium 130, potassium 4.8, chloride 94, bicarb 20, anion gap 10, BUN of 13, creatinine 0.8. Glucose of 182, calcium is 8.1. Magnesium 1.9. Total bilirubin is 0.28, AST 10, ALT 7, alkaline phosphatase 43, total protein 5.2, albumin of 2.1. Stool studies have so far been negative for C diff antigen and stool culture is negative. Stool for C difficile toxin was also negative. His EGD was done yesterday, which showed mild gastritis in the antrum, otherwise normal. IMPRESSION AND PLAN: 1. Nausea and vomiting, which is resolved. 2. Colitis in the left colon. Could be ischemic colitis. His stool studies have been negative. The patient had prior history of constipation, which may have led to ischemic colitis. It is in the left side of the colon seen on imaging from splenic flexure to the left colon. 3. Sepsis. 4. Anemia. 5. Atrial fibrillation. 6. Gastritis on EGD. 7. Benign prostatic hypertrophy. 8. Hypothyroidism. 9. Hyponatremia. 10. Type 2 diabetes. RECOMMENDATIONS: We will continue with the current plan of care. He will continue on Protonix once daily for gastritis, continue for 12 weeks and then can be transitioned to Pepcid once or twice daily as needed. The patient is having some liquid stools. He has been on oral vancomycin per the primary care team which will end in an 3 days. He is also receiving antibiotics for sepsis since 10/09/2019. We will start on Culturelle 1 capsule p.o. b.i.d. We will continue on hyoscyamine as needed for abdominal pain. We will reduce the use of Lomotil as the patient has colitis, which could have been secondary to ischemia from chronic constipation. The patient has atrial fibrillation is getting better controlled with amiodarone. The patient has been on Suboxone, which can contribute to constipation. So, we have to keep him on bowel regimen once the colitis heals to help him prevent getting constipated again. The above plans discussed with the patient and the nursing staff and all questions answered. cc: MD Daniela Gipson MD Kirk L. Jackson, MD MTDD
[2019-10-17] MEDS: DUONEB (A & A) INH SCH ×4 (05:35→22:00)
[2019-10-17] MEDS: TYLENOL PO PRN ×2 (06:16→16:56)
[2019-10-17] MEDS: PROTONIX PO SCH (06:16)
[2019-10-17] MEDS: SYNTHROID PO SCH (06:16)
[2019-10-17] MEDS: HUMULIN R SUBQ SCH ×4 (06:33→23:01)
[2019-10-17 07:21] LABS: HEMOGLOBIN 9.7 g/dL (14.0-18.0); MCH 29.3 PG (27-31); MCHC 32.3 g/dL (33-37); MCV 90.6 FL (81-99); RBC 3.31 XMIL (4.7-6.1); RDW 13.5 % (11.5-14.5); WBC 7.9 X1000 (4.8-10.8)
[2019-10-17 07:59] LABS: AGAP 8; ALB/GLOB RATIO 0.7; ALBUMIN 2.3 g/dL (3.5-5.0); ALKALINE PHOSPHATASE 57 U/L (32-122); BUN 13 mg/dL (8-22); CALCIUM 8.4 mg/dL (8.8-10.2); CHLORIDE 94 mmol/L (98-107); COSMO 269; CREATININE 0.9 mg/dL (0.7-1.2); ESTIMATED GFR > 60; GLUCOSE 147 mg/dL (70-104); GOT 13 U/L (10-34); GPT 9 U/L (10-44); POTASSIUM 3.4 mmol/L (3.5-5.1); SODIUM 133 mmol/L (136-145); TCO2 31 mmol/L (25-35); TOTAL BILIRUBIN 0.31 mg/dL (0.20-1.00); TOTAL PROTEIN 5.8 g/dL (6.3-8.3)
--- NOTE | 2019-10-17 08:22 | Diag Imaging Result Doc PS360 ---
EXAM: CHEST-1 VIEW 10/17/2019 HISTORY: pulmonary edema TECHNIQUE: AP portable upright at 0800 COMMENT: There is a PICC line on the right with its tip in the right atrium. There is minimal atelectatic change in the right middle lobe. Otherwise are has been no significant change since 10/15/2019. IMPRESSION: Subsegmental atelectasis right middle lobe. Electronically signed by Too Rios 10/17/2019 8:20 AM
[2019-10-17] MEDS: PRINIVIL PO SCH ×2 (08:37→22:00)
[2019-10-17] MEDS: ASPIRIN EC PO SCH (08:37)
[2019-10-17] MEDS: APRESOLINE PO SCH ×4 (08:37→21:59)
[2019-10-17] MEDS: ZYLOPRIM PO SCH (08:37)
[2019-10-17] MEDS: CORDARONE PO SCH ×2 (08:38→22:00)
[2019-10-17] MEDS: SUBOXONE 8 MG/2 MG SL SCH ×2 (08:38→22:01)
[2019-10-17] MEDS: VITAMIN B-12 SL SCH (08:38)
[2019-10-17] MEDS: DEPAKOTE ER PO SCH ×2 (08:38→22:00)
[2019-10-17] MEDS: CULTURELLE PO SCH ×2 (08:38→22:00)
[2019-10-17] MEDS: ASTELIN NASAL SPRAY NAS SCH (08:39)
[2019-10-17] MEDS: COREG PO SCH ×2 (08:40→22:00)
[2019-10-17] MEDS ORDERED: KLOR-CON PO ONE (08:49)
[2019-10-17] MEDS: LEVSIN-SL SL PRN (12:42)
[2019-10-17] MEDS ORDERED: MIRALAX PO PRN (14:14)
[2019-10-17] MEDS: LOVENOX SUBQ SCH ×2 (16:56→18:08)
--- NOTE | 2019-10-17 21:25 | GASTROENTEROLOGY PROGRESS NOTE ---
DATE: 10/17/2019 SUBJECTIVE: Patient resting in bed. He is feeling better. His diarrhea is slowing down. I offered the patient to do a colonoscopy. The patient wants to hold off at this time. The patient denies any abdominal pain. Denies any nausea or vomiting. OBJECTIVE: Vitals: Temperature 98.2, pulse rate of 64, respiratory rate 16, blood pressure 120/50, saturating 98% on 2 L nasal cannula. Body weight of 236 pounds. BMI 32 kg/m2. General: Mr. No is moderately built, moderately nourished lying in bed, in no acute distress. HEENT: Mild pallor. No icterus. Nasal cannula in place. Neck: Is supple. Abdomen: Is obese soft, nontender, nondistended. No guarding or rebound. Extremities: He has a rectal tube in place. Extremities: No cyanosis, clubbing. Neurologic: He is alert, awake, answers questions. LABS: Hemoglobin and hematocrit is 9.7 and 30. White count of 7.9, platelet count of 379,000. Sodium 133, potassium 3.4, chloride 94, bicarb 31, anion gap 9, BUN of 13, creatinine 1.9, glucose of 147, calcium 8.4, total bilirubin is 0.31, AST 13, ALT 9, alkaline phosphatase 57, total protein 5.8, albumin of 2.3. Stool studies have been negative for C diff antigen and toxin and stool culture is negative. Stool for occult blood was positive. IMPRESSION AND PLAN: 1. Nausea and vomiting has resolved. 2. Colitis in left colon could be ischemic colitis. I offered to do a colonoscopy, but the patient wants to hold off at this time and his diarrhea is also improving. 3. Sepsis. 4. Anemia. 5. Atrial fibrillation. 6. Gastritis on esophagogastroduodenoscopy. 7. Benign prostatic hyperplasia. 8. Hypothyroidism. 9. Hyponatremia. 10. Type 2 diabetes. 11. Obesity, body mass index of 32. RECOMMENDATIONS: We will continue Protonix once a day for 12 weeks and then he can be transition to Pepcid 20 mg once or twice a day as needed. The patient will benefit from iron supplementation and multivitamin supplementation for 90 days for helping with his anemia. The patient will be started on Culturelle 1 capsule p.o. b.i.d. for 6 weeks. He is also receiving antibiotics for sepsis since 10/09/2019. We will discontinue Lomotil as it can worsen constipation, which could have contributed to left-sided colitis. The patient is on amiodarone for atrial fibrillation. The patient also takes Suboxone which can contribute to constipation. The patient will need to be on MiraLAX once daily as long as he is on opioids like Suboxone to help prevent constipation. He can continue to take Levsin 0.125 mg sublingual 3 times daily as needed for 1 to 2 weeks. We will follow the patient in 3 weeks after discharge. At that time, we will re-discuss the option of doing a colonoscopy. At this time, we will sign off. Please call us with any questions or concerns. cc: MD Phani Gipson MD Katherine Takundwa, MD MTDD
[2019-10-17] MEDS: DESYREL PO SCH (22:00)
[2019-10-17] MEDS: REQUIP PO SCH (22:00)
[2019-10-17] MEDS: MELATONIN PO SCH (22:01)
[2019-10-17] MEDS: FLOMAX PO SCH (22:01)
[2019-10-17] MEDS: POLYSPORIN OINTMENT TOP SCH (23:55)
[2019-10-18] MEDS: DUONEB (A & A) INH SCH ×4 (03:38→22:27)
[2019-10-18] MEDS: ZOSYN 3.375 GM in NS 50 ML IV SCH ×3 (04:16→11:34)
[2019-10-18] MEDS: LOPRESSOR IV SCH ×2 (04:24→11:45)
[2019-10-18] MEDS: TYLENOL PO PRN ×3 (04:24→15:58)
[2019-10-18] MEDS: VANCOCIN PO SCH ×2 (04:24→11:47)
--- NOTE | 2019-10-18 04:39 | PROGRESS NOTE ---
DATE: 10/17/2019 SUBJECTIVE: The patient is resting comfortably in bed. He complains of pain in his left leg. He currently has a rectal tube in place. OBJECTIVE: Vital Signs: Temperature 98.2 degrees, blood pressure 120/50, heart rate 64, respirations 16, O2 saturation 98% on 2 L nasal cannula. General: This is a morbidly obese male lying in bed in no acute distress. Heart: S1, S2 normal. Regular rate and rhythm. Lungs: Equal air entry bilaterally. No wheezing. No rales. Abdomen: Positive bowel sounds. Soft, nontender, nondistended. Extremities: +1 edema bilaterally. Neurologic: The patient is alert and oriented x3. LABS: White blood cell count 7.9, hemoglobin 9.7, hematocrit 30, platelets 309,000, sodium 133, potassium 3.4, chloride 94, CO2 31, BUN 13, creatinine 0.9, glucose 147. Chest x-ray shows atelectasis in the right middle lobe. ASSESSMENT AND PLAN: 1. Gastritis and duodenitis. Continue on Protonix. 2. Sepsis secondary to colitis and proctitis. Improved. Today is day 9 of Zosyn treatment. The patient continues to have liquid stool. GI is following. 3. Benign prostatic hypertrophy. Aware. 4. Hypothyroidism. Continue on Synthroid. 5. Anemia. Stable. 6. Atrial fibrillation. The patient is on oral amiodarone and Coreg. 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 7. Hypertension. Continue on the current antihypertensive regimen. 8. Deep vein thrombosis prophylaxis. Continue on Lovenox. cc: Daniela Sandoval MD MTDD
[2019-10-18] MEDS: SYNTHROID PO SCH ×2 (05:42→06:45)
[2019-10-18] MEDS: PROTONIX PO SCH ×2 (05:42→06:45)
[2019-10-18 07:32] LABS: HEMATOCRIT 29.1 % (42.0-52.0); HEMOGLOBIN 9.2 g/dL (14.0-18.0); MCHC 31.6 g/dL (33-37); MCV 91.8 FL (81-99); MPV 8.9 FL (7.4-10.4); RBC 3.17 XMIL (4.7-6.1); RDW 13.6 % (11.5-14.5); WBC 8.08 X1000 (4.8-10.8)
[2019-10-18] MEDS: HUMULIN R SUBQ SCH ×4 (07:33→21:21)
[2019-10-18] MEDS: ASPIRIN EC PO SCH (08:25)
[2019-10-18] MEDS: CULTURELLE PO SCH ×2 (08:25→21:38)
[2019-10-18] MEDS: PRINIVIL PO SCH ×2 (08:25→21:38)
[2019-10-18] MEDS: SUBOXONE 8 MG/2 MG SL SCH ×2 (08:25→21:30)
[2019-10-18] MEDS: APRESOLINE PO SCH ×3 (08:25→21:38)
[2019-10-18] MEDS: VITAMIN B-12 SL SCH (08:25)
[2019-10-18] MEDS: ZYLOPRIM PO SCH (08:25)
[2019-10-18] MEDS: CORDARONE PO SCH (08:26)
[2019-10-18] MEDS: DEPAKOTE ER PO SCH ×2 (08:26→21:38)
[2019-10-18] MEDS: COREG PO SCH ×2 (08:26→21:37)
[2019-10-18 08:28] LABS: AGAP 10; ALB/GLOB RATIO 0.6; ALBUMIN 2.3 g/dL (3.5-5.0); ALKALINE PHOSPHATASE 59 U/L (32-122); BUN 10 mg/dL (8-22); CALCIUM 8.1 mg/dL (8.8-10.2); CHLORIDE 97 mmol/L (98-107); COSMO 272; CREATININE 0.9 mg/dL (0.7-1.2); ESTIMATED GFR > 60; GLUCOSE 118 mg/dL (70-104); GOT 16 U/L (10-34); GPT 10 U/L (10-44); MAGNESIUM 1.7 mg/dL (1.5-2.7); POTASSIUM 3.7 mmol/L (3.5-5.1); SODIUM 136 mmol/L (136-145); TCO2 29 mmol/L (25-35); TOTAL PROTEIN 5.9 g/dL (6.3-8.3)
[2019-10-18] MEDS: PHENERGAN IV PRN ×2 (09:33→21:49)
[2019-10-18] MEDS: SODIUM CHLORIDE 0.9% INJ PRN (09:33)
[2019-10-18] MEDS: ASTELIN NASAL SPRAY NAS SCH (11:35)
[2019-10-18] MEDS ORDERED: MAGNESIUM SULFATE 2 GM/S.W.I. 2 GM/50 ML IVPB IV ONE (15:34)
--- NOTE | 2019-10-18 18:47 | PROGRESS NOTE ---
DATE: 10/18/2019 SUBJECTIVE: The patient complains of generalized aches and pains. His rectal tube was removed yesterday since the diarrhea has resolved. No acute events noted overnight. OBJECTIVE: Vital Signs: Temperature 98.3 degrees, blood pressure 115/50, heart rate 60, respirations 18, O2 saturation 98% on 2 L nasal cannula, intake 506. General: This is a morbidly obese male lying in bed in no acute distress. Heart: S1, S2 normal. Regular rate and rhythm. Lungs: Equal air entry bilaterally. No wheezes or rales. No rhonchi. Abdomen: Positive bowel sounds. Soft, nontender, nondistended. Extremities: Trace pedal edema. Neurologic: The patient is legally blind. He is alert and oriented x3. LABORATORY DATA: White blood cell count 8, hemoglobin 9.2, hematocrit 29, platelets 364,000. Sodium 136, potassium 3.7, chloride 97, CO2 29, BUN 10, creatinine 0.9, glucose 118, magnesium 1.7. ASSESSMENT AND PLAN: 1. Sepsis secondary to proctitis and colitis. Resolved. The patient received a total of 10 days of antibiotic therapy with Zosyn. The diarrhea appears to have resolved. The patient is on MiraLAX to aid with keeping a normal bowel regimen since the patient is on chronic pain medication. 2. Diabetes mellitus type 2. Continue on Lantus with sliding scale insulin. 3. Hypothyroidism. Continue on Synthroid. 4. Atrial fibrillation. The patient is rate controlled. Continue on Coreg, amiodarone and aspirin. 5. Morbid obesity. Aware. 6. Hypertension. Continue on the current antihypertensive regimen. 7. Gastritis and duodenitis. Continue on Protonix daily for the next 12 weeks as directed by GI. 8. Benign prostatic hypertrophy. Continue on Avodart. 9. Anxiety disorder. Continue on buspirone. 10. History of gout. Continue on allopurinol. 11. Restless legs syndrome. Continue on Requip. DISPOSITION: The patient should be stable for discharge to [facility] tomorrow. cc: Daniela Sandoval MD
[2019-10-18] MEDS: LOVENOX SUBQ SCH (18:58)
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
[2019-10-18] MEDS: REQUIP PO SCH (21:38)
[2019-10-18] MEDS: MELATONIN PO SCH (21:38)
[2019-10-18] MEDS: DESYREL PO SCH (21:39)
[2019-10-18] MEDS: POLYSPORIN OINTMENT TOP SCH (21:39)
[2019-10-18] MEDS: FLOMAX PO SCH (21:39)
[2019-10-18] MEDS: BUSPAR PO SCH (21:39)
[2019-10-19] MEDS: PHENERGAN IV PRN ×3 (02:54→11:39)
[2019-10-19] MEDS: DUONEB (A & A) INH SCH ×2 (03:46→09:37)
[2019-10-19] MEDS: TYLENOL PO PRN ×2 (06:30→12:17)
[2019-10-19] MEDS: PROTONIX PO SCH (06:30)
[2019-10-19] MEDS: SYNTHROID PO SCH (06:30)
[2019-10-19 07:02] LABS: HEMATOCRIT 29.4 % (42.0-52.0); HEMOGLOBIN 9.3 g/dL (14.0-18.0); MCH 28.9 PG (27-31); MCHC 31.6 g/dL (33-37); MCV 91.3 FL (81-99); RBC 3.22 XMIL (4.7-6.1); RDW 13.5 % (11.5-14.5); WBC 6.59 X1000 (4.8-10.8)
[2019-10-19] MEDS: HUMULIN R SUBQ SCH ×2 (07:25→11:18)
[2019-10-19 07:56] LABS: AGAP 9; ALB/GLOB RATIO 0.7; ALBUMIN 2.4 g/dL (3.5-5.0); ALKALINE PHOSPHATASE 50 U/L (32-122); BUN 10 mg/dL (8-22); CALCIUM 8.1 mg/dL (8.8-10.2); CHLORIDE 93 mmol/L (98-107); COSMO 261; CREATININE 0.9 mg/dL (0.7-1.2); ESTIMATED GFR > 60; GLUCOSE 90 mg/dL (70-104); GOT 15 U/L (10-34); GPT 11 U/L (10-44); POTASSIUM 3.8 mmol/L (3.5-5.1); SODIUM 131 mmol/L (136-145); TCO2 29 mmol/L (25-35); TOTAL BILIRUBIN 0.27 mg/dL (0.20-1.00); TOTAL PROTEIN 5.8 g/dL (6.3-8.3)
[2019-10-19] MEDS: DEPAKOTE ER PO SCH (08:19)
[2019-10-19] MEDS: COREG PO SCH (08:19)
[2019-10-19] MEDS: ZYLOPRIM PO SCH (08:19)
[2019-10-19] MEDS: BUSPAR PO SCH (08:19)
[2019-10-19] MEDS: VITAMIN B-12 SL SCH (08:19)
[2019-10-19] MEDS: APRESOLINE PO SCH ×2 (08:19→13:47)
[2019-10-19] MEDS: PRINIVIL PO SCH (08:19)
[2019-10-19] MEDS: CULTURELLE PO SCH (08:19)
[2019-10-19] MEDS: SUBOXONE 8 MG/2 MG SL SCH (08:19)
[2019-10-19] MEDS: ASTELIN NASAL SPRAY NAS SCH (08:20)
[2019-10-19] MEDS: ASPIRIN EC PO SCH (08:20)
[2019-10-19] MEDS: SODIUM CHLORIDE 0.9% INJ PRN (11:39)
[2019-10-19 11:50] VITALS: BP 134/50
[2019-10-19] MEDS ORDERED: ATIVAN PO ONE (15:39)
[2019-10-19] MEDS ORDERED: VALIUM PO ONE (15:39)
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
== END 2019-10-19 17:30 | DRG 871 ==
LOC: SUPCPDRO → ED 09:08 → SUATTDRO 15:10 → EDIPHOLD 15:10 → 2N 10-10 13:39 → ICU 10-12 19:25 → 4N 10-16 21:52
PROVIDERS: ATTEND Internal Medicine